=== PATIENT | male | born 1935 | race Caucasian/White ===

== ENCOUNTER → 2016-06-08 | Outpatient (CLI) | payer BC ==
[~2016-06-08] MED LIST: ALLERGY TAB PO; ALPR-411 PO; ASPEC325 PO; BIMA0.038 OPB; CHOL2000 PO; CYAN10005 PO; EZET10TA44 PO; FIBER POWDER PO; MISCCAP80 PO; MULT-506 PO; OMEG10007 PO; PRLSR20 PO; TRIATAB3 PO; [UNRECOGNIZED DRUG - CODE] PO
[2016-06-08 12:46] LABS: BASO % 0.6 %; BASO ABS # 0.04 K/uL (0-0.2); COMPLETE YES; EOS % 3.7 %; HEMATOCRIT 46.2 % (42-52); IG% 0.2 %; LYMPH % 16.2 %; MEAN CELL VOLUME 87.8 fL (80-100); MEAN CORPUSCULAR HEMOGLOBIN 28.7 pg (25-34); MEAN CORPUSCULAR HGB CONC 32.7 g/dl (32-36); MEAN PLATELET VOLUME 11.4 fL (7.4-10.4); MONO % 7.3 %; PLATELET COUNT 152 K/uL (130-400); RED BLOOD COUNT 5.26 M/uL (4.7-6.1); WHITE BLOOD COUNT 6.19 K/uL (4.8-10.8)
[2016-06-08 13:03] LABS: ALT/SGPT 26 U/L (12-78); BLOOD UREA NITROGEN 17 mg/dl (7-18); BUN/CREATININE RATIO 15.7 (10-20); CARBON DIOXIDE 32 mmol/L (21-32); CHLORIDE 101 mmol/L (98-107); GLUCOSE 120 mg/dl (70-99); SODIUM 139 mmol/L (136-145)
[2016-06-08 13:06] LABS: ALB/GLOB RATIO 1.4 (0.9-2); ALKALINE PHOSPHATASE 71 U/L (45-117); AST/SGOT 18 U/L (15-37)
[2016-06-08 13:37] LABS: CALCIUM 9.8 mg/dl (8.5-10.1)
== END | disposition home or self-care (01) ==
LOC: C.LABPVFM 07:35
PROVIDERS: ATTEND Internal Medicine Hematology & Oncology
DX: C18.0 Malignant neoplasm of cecum (principal)

== ENCOUNTER → 2016-07-13 | Outpatient (CLI) | payer BC ==
[2016-07-13 13:04] LABS: CHOLESTEROL/HDL RATIO 2.3
== END | disposition home or self-care (01) ==
LOC: C.LABPVFM 07:20
PROVIDERS: ATTEND Family Medicine
DX: N40.1 Benign prostatic hyperplasia with lower urinary tract symptoms (principal); R33.9 Retention of urine, unspecified; E78.00 Pure hypercholesterolemia, unspecified

== ENCOUNTER → 2016-08-05 | Day surgery (SDC) | payer BC ==
[2016-07-27 08:05] VITALS: Ht 172.7 cm; Wt 75.0 kg
[~2016-08-05] VITALS: Ht 172.7 cm; Wt 75.0 kg
[~2016-08-05] MED LIST changes: +LIDOCAINE HCL 2% 2 ML VIAL (20MG/ML) ONE; +PROPOFOL IV EMULSION 10 MG/ML 20 ML VIAL IV ONE
--- NOTE | 2016-08-05 14:26 | Endo History and Physical ---
History & Physical Date of Service: Aug 05, 2016. Chief Complaint: h/o colon cancer Referring Physician: Dr. Puga History of Present Illness For colonoscopy Past Medical History Arthritis, Pacemaker, Asthma, Anxiety, Glaucoma, Reflux, Cancer, High Cholesterol, CABG, Syncopal Episodes, Hypertension Past Surgical History Hx Cardiac Surgery: Yes (CARDIAC CABG X2 VESSELS 1994 ([facility]) - PACEMAKER 2009) Hx Internal Defibrillator: No Hx Pacemaker: Yes Hx Abdominal Surgery: Yes (COLON RESECTION) Hx of Implantable Prosthesis: No Hx Post-Op Nausea and Vomiting: No Hx Cancer Surgery: No Hx Thoracic Surgery: No Hx Orthopedic: Yes (AMP 3 FINGERS R HAND, R RCR) Hx Urinary Tract Surgery: No Family History Esophogeal CA, IBD Social History Smoking Status: Former Smoker Hx Substance Use: No Hx Alcohol Use: Yes (1 BEER/DAY) Allergies Coded Allergies: Gluten (Verified Allergy, Unknown, Nausea, stomach pain, 07/27/16) NO KNOWN DRUG ALLERGIES (Unverified Allergy, Unknown, NONE, 07/27/16) Current Medications Reported Home Medications Medications Dose Route/Sig Max Daily Dose Days Date Category [Allergy Tab] 1 Tab PO PRN 07/27/16 Reported Vitamin D3 (Cholecalciferol) 2,000 Unit Cap 1 Cap PO QAM 90 07/27/16 Reported [place]-3 (Fish Oil) 1 Ea Cap 1 Cap PO QAM 07/27/16 Reported Triamterene/Hctz 37.5-25MG (Triamterene/HCTZ) 1 Tab Tab 1 Tab PO QAM 11/05/14 Reported Probiotic (Probiotic Product) 1 Cap Cap 1 Cap PO QAM 11/05/14 Reported Charcocaps (Charcoal Activated) 260 Mg Cap 1 Cap PO DIRECTED 07/11/14 Reported Vitamin B-12 (Cyanocobalamin) 1,000 Mcg Tab 2,500 Mcg PO HS 07/11/14 Reported [Fiber Powder] 1 Tsp PO QAM 06/21/10 Reported Multivitamin (Multivitamins) Tab 1 Tab PO QAM 06/21/10 Reported Ecotrin Or Generic * (Aspirin) 325 Mg Ectab 325 Mg PO QAM 06/21/10 Reported Lumigan 0.03% Oph (Bimatoprost) Soln 1 Drop OPB HS 06/21/10 Reported Xanax (Alprazolam) 0.5 Mg Tab 0.5 Mg PO HS 06/21/10 Reported Prilosec (Omeprazole) 20 Mg Capcr 20 Mg PO QAM 06/21/10 Reported Vytorin 10MG/80MG (Ezetimibe/Simvastatin) Tab 1 Tab PO QPM 06/21/10 Reported Vital Signs Weight (Kilograms): 75 Height (Feet): 5 Height (Inches): 8 Date Time Temp Pulse Resp B/P (MAP) Pulse Ox O2 Delivery O2 Flow Rate FiO2 08/05/16 14:02 36.7 73 20 174/73 (106) 98 Room Air Physical Exam General Appearance: WD/WN Respiratory/Chest: Respiratory effort: no dyspnea Cardiovascular: Heart Auscultation: RRR Abdomen: Bowel Sounds: pertinent finding (scar) Assessment and Plan Hx colon cancer for colonoscopy
--- NOTE | 2016-08-05 14:56 | Discharge Instructions ---
Endoscopy Patient Instructions Date / Procedure(s) Performed Aug 05, 2016. Colonoscopy Allergy Information Coded Allergies: Gluten (Verified Allergy, Unknown, Nausea, stomach pain, 07/27/16) NO KNOWN DRUG ALLERGIES (Unverified Allergy, Unknown, NONE, 07/27/16) Discharge Date / Findings Aug 05, 2016. Diverticulosis Medication Instructions Stopped Medication(s): Aspirin stopped 08/04/16. Restart Stopped Medication(s): resume meds Reported Home Medications Medications Dose Route/Sig Max Daily Dose Days Date Category [Allergy Tab] 1 Tab PO PRN 07/27/16 Reported Vitamin D3 (Cholecalciferol) 2,000 Unit Cap 1 Cap PO QAM 90 07/27/16 Reported [place]-3 (Fish Oil) 1 Ea Cap 1 Cap PO QAM 07/27/16 Reported Triamterene/Hctz 37.5-25MG (Triamterene/HCTZ) 1 Tab Tab 1 Tab PO QAM 11/05/14 Reported Probiotic (Probiotic Product) 1 Cap Cap 1 Cap PO QAM 11/05/14 Reported Charcocaps (Charcoal Activated) 260 Mg Cap 1 Cap PO DIRECTED 07/11/14 Reported Vitamin B-12 (Cyanocobalamin) 1,000 Mcg Tab 2,500 Mcg PO HS 07/11/14 Reported [Fiber Powder] 1 Tsp PO QAM 06/21/10 Reported Multivitamin (Multivitamins) Tab 1 Tab PO QAM 06/21/10 Reported Ecotrin Or Generic * (Aspirin) 325 Mg Ectab 325 Mg PO QAM 06/21/10 Reported Lumigan 0.03% Oph (Bimatoprost) Soln 1 Drop OPB HS 06/21/10 Reported Xanax (Alprazolam) 0.5 Mg Tab 0.5 Mg PO HS 06/21/10 Reported Prilosec (Omeprazole) 20 Mg Capcr 20 Mg PO QAM 06/21/10 Reported Vytorin 10MG/80MG (Ezetimibe/Simvastatin) Tab 1 Tab PO QPM 06/21/10 Reported Provider Instructions Activity Restrictions - No exercising or heavy lifting for 24 hours. - Do not drink alcohol the day of the procedure. - Do not drive a car or operate machinery until the day after the procedure. - Do not make any important decisions or sign important papers in 24 hours after the procedure. Following Day: - Return to full activity which may include returning to work/school. Diet Start your diet with liquids and light foods (jello, soup, juice, toast). Then eat your usual diet if not nauseated. Treatment For Common After Affects For mild abdominal pain, bloating, or excessive gas: - Rest - Eat lightly - Lie on right side Follow-Up Information Follow-up with Dr. Puga as scheduled Anesthesia Information What You Should Know You have had a procedure that required some medicine to reduce anxiety and discomfort. This treatment is called moderate sedation. After receiving the treatment, you may be sleepy, but you will be able to breathe on your own. The effects of the treatment may last for several hours. Follow these instructions along with Activity/Diet recommendations noted above: * Do NOT do anything where dizziness or clumsiness would be dangerous. * Rest quietly at home today, then you can be up and about tomorrow. * Have a responsible person stay with you the rest of today. * You may have had an I.V. today. If so, you may take the dressing off later today. Recommendations Call your doctor if: * Trouble breathing * Continuous vomiting for more than 24 hours * Temperature above 101 degrees * Severe abdominal pain or bloating * Pain not relieved by pain medicine ordered * There is increased drainage or redness from any incision * A large amount of rectal bleeding greater than 2-3 tablespoons. (If you had a polyp/s removed or have hemorrhoids, a small amount of blood - from the rectum is to be expected.) * You have any unanswered questions or concerns. IN THE EVENT OF A SERIOUS EMERGENCY, GO TO THE NEAREST EMERGENCY ROOM Your discharge instructions were prepared by provider Genaro Ortez. Patient Instructions Signature Page Troy Butt Patient (or Guardian) Signature/Date: I have read and understand the instructions given to me by my caregivers. Caregiver/RN/Doctor Signature/Date: The above-named patient and/or guardian has received patient instructions on this date. + Original Patient Signature Page (only) stays with chart. Please make copy for patient.
--- NOTE | 2016-08-05 15:00 | GI REPORT ---
Procedure Date: 08/05/2016 2:40 PM Procedure: Colonoscopy Indications: Personal history of malignant neoplasm of the colon Medicines: Propofol total dose 260 mg IV, Lidocaine 40 mg IV Complications: No immediate complications. Estimated Blood Loss: Estimated blood loss: none. Procedure: Pre-Anesthesia Assessment: - Prior to the procedure, a History and Physical was performed, and patient medications, allergies and sensitivities were reviewed. The patient's tolerance of previous anesthesia was reviewed. - The risks and benefits of the procedure and the sedation options and risks were discussed with the patient. All questions were answered and informed consent was obtained. After I obtained informed consent, the scope was passed under direct vision. Throughout the procedure, the patient's blood pressure, pulse, and oxygen saturations were monitored continuously. The scope was introduced through the anus and advanced to the ileocolonic anastomosis. The colonoscopy was performed without difficulty. The patient tolerated the procedure well. The quality of the bowel preparation was good. Findings: There was evidence of a prior end-to-side ileo-colonic anastomosis in the mid ascending colon. This was patent and was characterized by healthy appearing mucosa. The anastomosis was traversed. Multiple diverticula were found in the sigmoid colon. The terminal ileum appeared normal. Impression: - Patent end-to-side ileo-colonic anastomosis, characterized by healthy appearing mucosa. - Diverticulosis in the sigmoid colon. - The examined portion of the ileum was normal. - No specimens collected. Recommendation: - Discharge patient to home (ambulatory). - Continue present medications. - Repeat colonoscopy in 5 years for surveillance. - Return to primary care physician PRN. Genaro Ortez M.D. Genaro Ortez MD 08/05/2016 2:59:29 PM This report has been signed electronically. Note Initiated On: 08/05/2016 2:40 PM I attest to the content of the Intraoperative Record and orders documented therein, exceptions below
--- NOTE | 2016-08-05 15:10 | Anesthesiology Progress Note ---
Anesthesia Post Op Note Date & Time Aug 05, 2016 at 15:10 Vital Signs Pain Intensity: 0 Vital Signs Past 12 Hours Date Time Temp Pulse Resp B/P (MAP) Pulse Ox O2 Delivery O2 Flow Rate FiO2 08/05/16 14:02 36.7 73 20 174/73 (106) 98 Room Air Notes Mental Status: alert / awake / arousable, participated in evaluation Pt Amnestic to Procedure: Yes Nausea / Vomiting: adequately controlled Pain: adequately controlled Airway Patency, RR, SpO2: stable & adequate BP & HR: stable & adequate Hydration State: stable & adequate Anesthetic Complications: no major complications apparent
[2016-08-05 15:31] VITALS: BP 147/71; PULSE 63; O2SAT 99
== END | disposition home or self-care (01) ==
LOC: C.ACU 13:07
PROVIDERS: ATTEND Internal Medicine Gastroenterology
DX: Z12.11 Encounter for screening for malignant neoplasm of colon (principal); Z85.038 Personal history of other malignant neoplasm of large intestine; Z98.0 Intestinal bypass and anastomosis status; K57.30 Diverticulosis of large intestine without perforation or abscess without bleeding; I10 Essential (primary) hypertension; E78.00 Pure hypercholesterolemia, unspecified; K21.9 Gastro-esophageal reflux disease without esophagitis; J45.909 Unspecified asthma, uncomplicated; F41.9 Anxiety disorder, unspecified; H40.9 Unspecified glaucoma; Z87.891 Personal history of nicotine dependence; Z95.0 Presence of cardiac pacemaker; Z95.1 Presence of aortocoronary bypass graft; Z79.899 Other long term (current) drug therapy; Z80.0 Family history of malignant neoplasm of digestive organs; Z83.79 Family history of other diseases of the digestive system

== ENCOUNTER → 2016-12-05 | Outpatient (CLI) | payer BC ==
[~2016-12-05] MED LIST changes: -LIDOCAINE HCL 2% 2 ML VIAL (20MG/ML) ONE; -PROPOFOL IV EMULSION 10 MG/ML 20 ML VIAL IV ONE
[2016-12-05 12:59] LABS: ALT/SGPT 23 U/L (12-78); BLOOD UREA NITROGEN 16 mg/dl (7-18); BUN/CREATININE RATIO 16.1 (10-20); CALCIUM 8.9 mg/dl (8.5-10.1); CARBON DIOXIDE 31 mmol/L (21-32); CHLORIDE 102 mmol/L (98-107); CHOLESTEROL 138 mg/dl (0-200); CREATININE 1.01 mg/dl (0.60-1.40); GLUCOSE 94 mg/dl (70-99); POTASSIUM 4.2 mmol/L (3.5-5.1); SODIUM 139 mmol/L (136-145); TRIGLYCERIDES 121 mg/dl (0-150); VERY LOW DENSITY LIPOPROT CALC 24 mg/dl
[2016-12-05 13:02] LABS: ALB/GLOB RATIO 1.3 (0.9-2); ALKALINE PHOSPHATASE 76 U/L (45-117); AST/SGOT 18 U/L (15-37); CHOLESTEROL/HDL RATIO 2.1; HDL CHOLESTEROL 66 mg/dl; LDL CHOLESTEROL CALCULATED 48 mg/dl
== END | disposition home or self-care (01) ==
LOC: C.LABPVFM 07:54
PROVIDERS: ATTEND Family Medicine
DX: I10 Essential (primary) hypertension (principal); E78.00 Pure hypercholesterolemia, unspecified

== ENCOUNTER → 2017-06-12 | Outpatient (CLI) | payer BC ==
[2017-06-12 13:00] LABS: BASO % 0.6 %; BASO ABS # 0.04 K/uL (0-0.2); EOS % 4.4 %; EOS ABS # 0.29 K/uL (0-0.5); HEMOGLOBIN 15.6 g/dL (14.0-18.0); IG# 0.02 K/uL (0.00-0.02); LYMPH % 17.1 %; LYMPH ABS # 1.13 K/uL (1.2-3.4); MEAN CELL VOLUME 87.5 fL (80-100); MEAN CORPUSCULAR HEMOGLOBIN 29.7 pg (25-34); MEAN CORPUSCULAR HGB CONC 33.9 g/dl (32-36); MEAN PLATELET VOLUME 10.5 fL (7.4-10.4); MONO % 7.4 %; MONO ABS # 0.49 K/uL (0.11-0.59); NEUT % 70.2 %; NEUT ABS # 4.62 K/uL (1.4-6.5); PLATELET COUNT 155 K/uL (130-400); RED CELL DISTRIBUTION WIDTH CV 14.3 % (11.5-14.5); RED CELL DISTRIBUTION WIDTH SD 46.2 fL (36.4-46.3); WHITE BLOOD COUNT 6.59 K/uL (4.8-10.8)
[2017-06-12 13:13] LABS: ALBUMIN 4.2 gm/dl (3.4-5.0); ALT/SGPT 30 U/L (12-78); AST/SGOT 19 U/L (15-37); BLOOD UREA NITROGEN 21 mg/dl (7-18); CALCIUM 8.9 mg/dl (8.5-10.1); CARBON DIOXIDE 31 mmol/L (21-32); CREATININE 1.09 mg/dl (0.60-1.40); GLUCOSE 103 mg/dl (70-99); POTASSIUM 4.3 mmol/L (3.5-5.1); SODIUM 136 mmol/L (136-145)
[2017-06-12 13:15] LABS: ALKALINE PHOSPHATASE 81 U/L (45-117); TOTAL PROTEIN 7.8 gm/dl (6.4-8.2)
== END | disposition home or self-care (01) ==
LOC: C.LABPVFM 07:54
PROVIDERS: ATTEND Internal Medicine Cardiovascular Disease
DX: C18.0 Malignant neoplasm of cecum (principal); E78.00 Pure hypercholesterolemia, unspecified

== ENCOUNTER 2020-04-23 08:35 | Observation (INO) ==
[2020-04-23 09:13] LABS: Basophils # (auto) 0.03 K/uL (0-0.2); Basophils % (auto) 0.4 %; Eosinophils # (auto) 0.15 K/uL (0-0.5); Hematocrit (blood only) 41.4 % (42-52); Hemoglobin 14.4 g/dL (14.0-18.0); Immature Granulocytes # (auto) 0.02 K/uL (0.00-0.02); Immature Granulocytes % (auto) 0.3 %; Lymphocytes # (auto) 0.86 K/uL (1.2-3.4); Lymphocytes % (auto) 11.7 %; Mean Corpuscular Hemoglobin 28.3 pg (25-34); Mean Corpuscular Hgb Conc 34.8 g/dL (32-36); Mean Corpuscular Volume 81.5 fL (80-100); Mean Platelet Volume 9.9 fL (7.4-10.4); Monocytes # (auto) 0.73 K/uL (0.11-0.59); Neutrophils # (auto) 5.54 K/uL (1.4-6.5); Neutrophils % (auto) 75.6 %; Platelet Count 180 K/uL (130-400); RDW Coefficient of Variation 13.6 % (11.5-14.5); RDW Standard Deviation 40.8 fL (36.4-46.3); Red Blood Count 5.08 M/uL (4.7-6.1); White Blood Count 7.33 K/uL (4.8-10.8)
[2020-04-23] MEDS: SODIUM CHLORIDE 0.9% 1000ML 1,000 ML IV SCH ×3 (09:15→22:23)
[2020-04-23 09:28] LABS: INR 1.1 (0.9-1.1); Partial Thromboplastin Ratio 0.9; Partial Thromboplastin Time 23.9 Seconds (21.0-31.0); Prothrombin Time 10.7 Seconds (9.0-12.0)
[2020-04-23 09:29] LABS: D Dimer 3860 ug/L FEU (0-500)
[2020-04-23 09:34] LABS: iSTAT Creatinine 0.9 mg/dl (0.6-1.3); iSTAT Hemoglobin 13.3 g/dl (14.0-18.0); iSTAT Ionized Calcium 1.16 mmol/l (1.12-1.32)
[2020-04-23 09:40] LABS: Alanine Aminotransferase 29 U/L (12-78); Albumin Level 4.1 gm/dl (3.4-5.0); Aspartate Aminotransferase 24 U/L (15-37); BUN Creatinine Ratio 11.4 (10-20); Bilirubin Direct < 0.1 mg/dl (0-0.2); Blood Urea Nitrogen 12 mg/dl (7-18); Calcium 9.4 mg/dl (8.5-10.1); Carbon Dioxide 28 mmol/L (21-32); Chloride 93 mmol/L (98-107); Creatinine Clr Calc Pharmacy 54.7 ml/min; Est GFR (African American) 74.3; Est GFR (Non-African American) 64.1; Glucose 107 mg/dl (70-99); Lipase 233 U/L (73-393); Magnesium 2.4 mg/dl (1.8-2.4); Potassium 3.9 mmol/L (3.5-5.1); Sodium 127 mmol/L (136-145)
[2020-04-23] MEDS ORDERED: OPTIRAY 320 125ml IV ONE (09:44)
[2020-04-23 09:45] LABS: Alkaline Phosphatase 74 U/L (45-117); Bilirubin,Total 0.7 mg/dl (0.2-1); Total Protein 7.4 gm/dl (6.4-8.2); Troponin I < 0.015 ng/ml (0-0.045)
--- NOTE | 2020-04-23 10:06 | CT Scan Report ---
CT head/brain wo con CLINICAL HISTORY: Head trauma. Syncope. Laceration. COMPARISON STUDY: 12/29/2014 TECHNIQUE: Axial CT of the brain is performed from the vertex to the skull base. IV contrast was not administered for this examination. A dose lowering technique was utilized adhering to the principles of ALARA. CT DOSE: FINDINGS: No intra or extra-axial mass lesions are visualized. There is no CT evidence of acute cortical infarc tion. There is no evidence of midline shift. There is no acute hemorrhage. No calvarial fractures ar e visualized. There are patchy white matter hypodensities likely on a small vessel basis. There is a persistent 11 mm right subcortical frontal white matter hypodensity, likely representing an old ischemic insult. There is no evidence of pathologic ventricular dilatation. There is no evidence of acute sinusitis IMPRESSION: No acute intracranial findings ACT 112: Negative or not required by law. Electronically signed by: Keven Anderson M.D. 04/23/2020 10:04 AM
--- NOTE | 2020-04-23 10:09 | CT Scan Report ---
CT OF THE CERVICAL SPINE CLINICAL HISTORY: Neck pain status post trauma COMPARISON STUDY: 12/29/2014 CT DOSE: TECHNIQUE: CT scan of the cervical spine was performed from the skull base to the thoracic inlet. Juanis ges are reviewed in the axial, sagittal, and coronal planes. IV contrast was not administered for thi s examination. A dose lowering technique was utilized adhering to the principles of ALARA. FINDINGS: There is no apical pneumothorax. There is pulmonary emphysema. There is a partially calcified right a pical granuloma. The prevertebral soft tissues are normal. No fractures or subluxations are visualized. There are multilevel degenerative changes IMPRESSION: No evidence of acute fracture or traumatic subluxation. ACT 112: Negative or not required by law. Electronically signed by: Keven Anderson M.D. 04/23/2020 10:07 AM
--- NOTE | 2020-04-23 10:22 | CT Scan Report ---
CT ANGIOGRAPHY OF THE CHEST, PULMONARY EMBOLUS PROTOCOL CLINICAL HISTORY: Syncope. Elevated d-dimer. Evaluate for pulmonary embolus. COMPARISON STUDY: Chest CT August 20, 2013. TECHNIQUE: Following IV administration of 120 mL of Optiray-320, helical axial images of the chest we re obtained utilizing the pulmonary embolus protocol. Maximal intensity projections and sagittal and coronal reformats were viewed on an independent 3D workstation. IV contrast was administered withou t complication. Automated exposure control was utilized for the study. A dose lowering technique wa s utilized adhering to the principles of ALARA. CT DOSE: 2092.04 mGy.cm FINDINGS: No pulmonary emboli are identified. There is no thoracic aortic dissection. Note is made o f moderate cardiomegaly. There are postoperative findings from bypass grafting. There is extensive co ronary artery calcification. A small hiatal hernia is noted. A low-attenuation 1.4 cm anterior medias tinal density on axial image 200 of 278 is probably benign. Central airways are patent. There is no p neumothorax or pleural effusion. Old bilateral rib fractures are present. There is no acute rib or th oracic spine fracture. Old mild lower thoracic spine compression of bodies are present. There is mode rate emphysema. A 1.3 cm groundglass opacity within left lower lobe on image 110 of 278 is noted. A f ew subpleural nodular opacities within the right lower lobe measure up to 6 mm. There is also a 5 mm subpleural right lower lobe nodule on image 155. Adjacent smaller nodules are present. A right adrena l nodule is unchanged from earlier chest CT of August 20, 2013. This is benign. IMPRESSION: 1. No pulmonary emboli identified. 2. No acute process within the chest. 3. Moderate cardiomegaly and extensive coronary calcification. 4. 1.3 cm groundglass opacity within the left lower lobe. In addition, several subpleural right lower lobe nodules. The findings are indeterminate and may be infectious or inflammatory. However, a follo w-up chest CT in 6 months to ensure resolution is recommended. 5. Moderate emphysema. ACT 112: Negative or not required by law. Electronically signed by: Serafin Ortiz M.D. 04/23/2020 10:20 AM
--- NOTE | 2020-04-23 10:25 | CT Scan Report ---
CT SCAN OF THE ABDOMEN AND PELVIS WITH IV CONTRAST CLINICAL HISTORY: Syncope. Generalized abdominal pain. COMPARISON STUDY: Abdominal CT dated 01/08/2020. TECHNIQUE: Following the IV administration of 120 cc of Optiray 320, CT scan of the abdomen and pelv is is performed from the lung bases to the proximal femora. Images are reviewed in the axial, sagitta l, and coronal planes. IV contrast was administered without complication. A dose lowering technique w as utilized adhering to the principles of ALARA. FINDINGS: Lung bases: The patient is status post midline sternotomy. The heart is enlarged and without pericard ial effusion. Pacemaker leads are noted. The coronary arteries, mitral annulus, and aortic valve leaf lets are densely calcified. Emphysematous change is noted. Scarring/atelectasis is seen at the lung b ases. No airspace consolidation, pleural effusion, or basilar pneumothorax is identified. There is a small hiatal hernia. Liver: The contrast-enhanced liver is normal in size, contour, and attenuation. There is no intrahepa tic biliary ductal dilatation. The hepatic veins and portal veins are patent. Gallbladder: Unremarkable. Spleen: Normal in size and attenuation. Pancreas: Unremarkable. Adrenal glands: A 1.7 cm right adrenal nodule is unchanged. The left adrenal gland is normal in appea ana. Kidneys: The contrast enhanced kidneys demonstrate mild cortical atrophy and are without hydronephros is. The kidneys enhance symmetrically. There are least 2 nonobstructing right renal calculi which max sure up to 11 mm. Abdominal vasculature: There is advanced atherosclerotic calcification of the abdominal aorta. 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 There is mild aneury smal dilatation of the abdominal aorta which measures up to 3.5 cm. 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 Bowel: There is moderate colonic diverticulosis without CT evidence of acute diverticulitis. There is postoperative change from right hemicolectomy with ileocolic anastomosis. No bowel obstruction is se en. Mild/moderate fecal retention is seen throughout the colon. Peritoneum: There is no intraperitoneal free air or abdominal ascites. Lymphadenopathy: None. Pelvic viscera: The prostate gland is enlarged and heterogeneous noting median lobe hypertrophy. The bladder wall is thickened and trabeculated indicating chronic outlet obstruction. There is a small fa t-containing right inguinal hernia, as well as evidence of previous left inguinal herniorrhaphy. Skeletal structures: The skeletal structures are osteopenic. The lumbosacral spine, bony pelvis, and proximal femora appear intact. There are mild chronic superior endplate compression deformities of T1 1 and T12. Mild to moderate lumbosacral spondylosis is observed. No lytic or blastic lesions are seen . IMPRESSION: 1. There is no evidence of solid organ injury in the abdomen or pelvis. 2. There is mild aneurysmal dilatation and postoperative change of the abdominal aorta which measures up to 3.5 cm in diameter. 3. Cardiomegaly, cardiac pacemaker, and emphysema. 4. There is postoperative change from right hemicolectomy with ileocolic anastomosis. No bowel obstru ction is seen. 5. Prostatomegaly with evidence of chronic bladder outlet obstruction. 6. Moderate colonic diverticulosis without CT evidence of acute diverticulitis. 7. 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 8. Additional findings as above. ACT 112: Negative or not required by law. Electronically signed by: Mohinder Perez M.D. 04/23/2020 10:24 AM
[2020-04-23 10:28] LABS: Appearance Urine Clear (Clear); Bilirubin Urine Negative (Negative); Blood Urine Negative (Negative); Color Urine Yellow; Glucose Urine UA Negative (Negative); Ketones Urine Negative (Negative); Leukocyte Esterase Urine Negative (Negative); Nitrite Urine Negative (Negative); Protein Urine Negative (Negative); Specific Gravity Urine 1.037 (1.000-1.030); Urobilinogen Urine Negative (Negative); pH Urine 8.5 (4.5-7.5)
[2020-04-23] MEDS ORDERED: LIDOCAINE/EPINEPHRINE 1% 20 ML VIAL INFIL ONE (11:11)
--- NOTE | 2020-04-23 11:13 | History & Physical Report ---
Date of Service April 23, 2020 Assessment & Plan (1) Syncope and collapse: TTE and pacemaker interrogation to check no arrhythmias at the time of him having the syncopal episode. Monitor on telemetry for recurrence Orthostatics q shift (2) Acute hyponatremia: Suspect secondary to HCTZ use. Rehydrate with NSS IV @ 125 ml/hr Repeat BMP in AM (3) GERD (gastroesophageal reflux disease): Switch omeprazole to pantoprazole per hospital formulary Consult his antenna rigger for further advice regarding this as possible contributing factors and do not wish to prescript Carafate if any chance he would need EGD. EGD relatively unremarkable in 01/2020 (4) HTN (hypertension), benign: Continue valsartan and triamterene. 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 He does note his PCP switched his lisinopril to valsartan due to cough as side effect and he took the first dose of this yesterday morning. He reports possible complete loss of consciousness (approx 1 second) with a feeling of dizziness/lightheadedness/diaphoresis prior to falling. He does remember falling. No chest pain or shortness of breath. On the last occasion he hit his head causing some bleeding. He has been walking around since the fall with no hip/groin pain. He notes similar occurrence prior to him needing his current pacemaker. He is concerned about progressively worsening abdominal pain that it may be related to his syncope. Associated acid taste in the back of his mouth. He has known GERD but reports it has not been under control for the last 2 weeks. He does note eating spicy tacos approximately 1 week ago but symptoms were already getting worse prior to then. He has increased his omeprazole to BID for the last 3 days with no improvement. Allergies Allergy/AdvReac Type Severity Reaction Status Date / Time gluten Allergy Unknown Nausea, Verified 04/23/20 09:36 stomach pain No Known Drug Allergies Allergy Unknown NONE Unverified 04/23/20 09:36 Home Medications Medication Instructions Recorded Confirmed Type bimatoprost 0.01 % eye drops 1 drp OPB HS ml 11/08/18 04/23/20 History dorzolamide 22.3 mg-timolol 6.8 1 drp OPL BID ml 11/08/18 04/23/20 History mg/mL eye drops cholecalciferol (vitamin D3) 50 2,000 units PO QAM 11/09/18 04/23/20 History mcg (2,000 unit) capsule mecobalamin (vitamin B12) 1,000 2,500 mcg SL PM tab 11/09/18 04/23/20 History mcg disintegrating tablet,sublingual omega-3 fatty acids 1,000 mg 1,000 mg PO QAM 11/09/18 04/23/20 History capsule psyllium seed (aspartame) oral 1.65 gm PO QAM gm 11/09/18 04/23/20 History powder ezetimibe 10 mg-simvastatin 80 mg 1 tab PO QPM #90 tab 07/04/19 04/23/20 Rx tablet activated charcoal 200 mg capsule 400 mg PO DAILY PRN cap 08/09/19 04/23/20 History aspirin 325 mg tablet,delayed 325 mg PO QAM 08/09/19 04/23/20 History release melatonin 1 ea PO HS 08/09/19 04/23/20 History triamterene-hydrochlorothiazid 1 cap PO QAM 01/15/20 04/23/20 History multivitamin with iron 1 tab PO QAM 04/23/20 04/23/20 History omeprazole 20 mg capsule,delayed 20 mg PO BID #180 cap 04/23/20 04/23/20 Rx release valsartan 80 mg PO QAM 04/23/20 04/23/20 History Past Med/Surg History Medical History History of colon cancer 2014 surgical intervention only for colon cancer Hx of cardiac pacemaker [facility] - 2010 -syncope-bradycardia last check 07/[address] Hartman Surgical History History of abdominal aortic aneurysm repair x3 History of colon surgery 2014 surgical intervention only for colon cancer History of colonoscopy fiberoptic History of foot surgery History of hand surgery 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 failed stress test Hx of hernia repair double hernia repair Hx of shoulder surgery Arthroscopy with Rotator cuff repair Status post carotid surgery Thromboendarterectomy Family History Father Prostate cancer Myocardial infarction Heart disease Hypertension Mother Arthritis Cerebral artery occlusion Heart disease Hypertension Daughter Asthma Cancer of brain Breast cancer Brother Myocardial infarction Heart disease Hypertension Denies family history of Ovarian cancer Social History Smoking Status: Never smoker Second Hand Exposure: No; Hx Alcohol Use: Yes Alcohol type: beer Hx Substance Use: No Preferred Language: Mongolian Communication Ability: Effective Staff Readiness Officer 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 Beliefs That Will Affect Care: None marital status: Current Living Situation: Spouse current occupational status: retired Feels Safe at Home: Yes caffeine: Yes (coffee) Dental Care, Regularly: Yes Physical Activity Frequency: Daily Seatbelt Use: sometimes Sunscreen Use: Yes Assistive Devices: Denture - Upper, Denture - Lower, Glasses and Hearing Aid - Bilateral Review of Systems Review of Systems: All systems reviewed & are unremarkable except as noted in HPI & below Physical Exam Constitutional: well developed and well nourished; no acute distress Respiratory: normal respiratory effort, lungs clear to auscultation Cardiovascular: RRR, no murmur, no edema Gastrointestinal (Abdomen): Inspection/Auscultation: abdomen normal to inspection and normal bowel sounds Percussion/Palpation: + abdomen tender (epigastric) and abdomen soft; no guarding and abdomen not rigid Musculoskeletal: no cyanosis or clubbing, extremities motor strength 5/5 Skin: no rashes, warm and dry Neurologic: CN's II-XI intact bilaterally, moves all extremities and awake; no focal motor deficits and not confused Speech / Cognition: normal speech Motor/Sensory: no tremor and no pronator drift Psychiatric: Orientation: alert and oriented x 3 Genitourinary: no CVA tenderness Results & Data Results & Data ([facility]) Vital Signs (Past 12 Hours) Vital Signs Temp Pulse Resp BP Pulse Ox 04/23/20 09:30 95 H 15 169/76 H 98 04/23/20 09:10 78 16 96 04/23/20 09:07 85 14 98 04/23/20 09:02 95 H 15 174/77 H 99 04/23/20 08:40 36.7 C 66 16 206/[address] head/brain wo con IMPRESSION: No acute intracranial findings CT OF THE CERVICAL SPINE IMPRESSION: No evidence of acute fracture or traumatic subluxation. CT ANGIOGRAPHY OF THE CHEST, PULMONARY EMBOLUS PROTOCOL IMPRESSION: 1. No pulmonary emboli identified. 2. No acute process within the chest. 3. Moderate cardiomegaly and extensive coronary calcification. 4. 1.3 cm groundglass opacity within the left lower lobe. In addition, several subpleural right lower lobe nodules. The findings are indeterminate and may be infectious or inflammatory. However, a follow-up chest CT in 6 months to ensure resolution is recommended. 5. Moderate emphysema. CT SCAN OF THE ABDOMEN AND PELVIS WITH IV CONTRAST IMPRESSION: 1. There is no evidence of solid organ injury in the abdomen or pelvis. 2. There is mild aneurysmal dilatation and postoperative change of the abdominal aorta which measures up to 3.5 cm in diameter. 3. Cardiomegaly, cardiac pacemaker, and emphysema. 4. There is postoperative change from right hemicolectomy with ileocolic anastomosis. No bowel obstruction is seen. 5. Prostatomegaly with evidence of chronic bladder outlet obstruction. 6. Moderate colonic diverticulosis without CT evidence of acute diverticulitis. 7. 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 8. Additional findings as above. Medications Administered ER medications given: NSS IV started @ 125 mL/hr ECG Indication: syncope Rate (beats per minute): 74 Rhythm: sinus with SA Findings: + PVC Comparison ECG Date: from (January 28, 2013) Change: the following changes noted (PVCs now present) Code Status & VTE Plan Code Status Full VTE Prophylaxis Plan VTE Prophylaxis will be ordered: Yes PG Care Time/CCT Total # of Minutes Spent Total Time Spent with Patient: Total time spent is greater than 50% in coordination of care (as documented) at patient's floor/unit and/or counseling patient: Coding Level of Care Code 35097 Initial Inpt Care Lvl 2 Diagnoses Syncope and collapse R55 Acute hyponatremia E87.1 GERD (gastroesophageal reflux disease) K21.9 HTN (hypertension), benign I10 Hyperlipidemia E78.5 Hx of cardiac pacemaker Z95.0 Laceration of head S01.91XA
--- NOTE | 2020-04-23 11:28 | Emergency Department Note ---
History of Present Illness General Chief complaint: Fall Stated complaint: S/P FALL,HEAD LACERATION Time Seen by Provider: 04/23/20 08:44 History of Present Illness Provider complaint: Syncope Onset (ago): day(s) 1 Location: head and abdomen Radiation: non-radiation Severity: moderate Maximum Pain Intensity: 0 Relieved By: + none Exacerbated By: + none Associated symptoms: + headaches; no chest pain, no cough, no fever/chills, no nausea/vomiting and no shortness of breath 85-year-old male presents emergency department for syncope. Patient reports he had 3 syncopal episodes today. Patient also reports he had been having increasing abdominal pain. He denies any nausea or vomiting. Patient is not on any blood thinners. No chest pain or difficulty breathing. Home Medications Medication Instructions Recorded Confirmed Type bimatoprost 0.01 % eye drops 1 drp OPB HS ml 11/08/18 04/23/20 History dorzolamide 22.3 mg-timolol 6.8 1 drp OPL BID ml 11/08/18 04/23/20 History mg/mL eye drops cholecalciferol (vitamin D3) 50 2,000 units PO QAM 11/09/18 04/23/20 History mcg (2,000 unit) capsule mecobalamin (vitamin B12) 1,000 2,500 mcg SL PM tab 11/09/18 04/23/20 History mcg disintegrating tablet,sublingual omega-3 fatty acids 1,000 mg 1,000 mg PO QAM 11/09/18 04/23/20 History capsule psyllium seed (aspartame) oral 1.65 gm PO QAM gm 11/09/18 04/23/20 History powder ezetimibe 10 mg-simvastatin 80 mg 1 tab PO QPM #90 tab 07/04/19 04/23/20 Rx tablet activated charcoal 200 mg capsule 400 mg PO DAILY PRN cap 08/09/19 04/23/20 History aspirin 325 mg tablet,delayed 325 mg PO QAM 08/09/19 04/23/20 History release melatonin 1 ea PO HS 08/09/19 04/23/20 History triamterene-hydrochlorothiazid 1 cap PO QAM 01/15/20 04/23/20 History multivitamin with iron 1 tab PO QAM 04/23/20 04/23/20 History omeprazole 20 mg capsule,delayed 20 mg PO BID #180 cap 04/23/20 04/23/20 Rx release valsartan 80 mg PO QAM 04/23/20 04/23/20 History Allergies Allergy/AdvReac Type Severity Reaction Status Date / Time gluten Allergy Unknown Nausea, Verified 04/23/20 09:36 stomach pain No Known Drug Allergies Allergy Unknown NONE Unverified 04/23/20 09:36 Past Med/Surg History Medical History History of colon cancer 2014 surgical intervention only for colon cancer Hx of cardiac pacemaker [facility] - 2010 -syncope-bradycardia last check 07/[address] Hartman Surgical History History of abdominal aortic aneurysm repair x3 History of colon surgery 2014 surgical intervention only for colon cancer History of colonoscopy fiberoptic History of foot surgery History of hand surgery 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 Hx of heart bypass surgery x 2 vessel in 1994 failed stress test Hx of hernia repair double hernia repair Hx of shoulder surgery Arthroscopy with Rotator cuff repair Status post carotid surgery Thromboendarterectomy Family History Father Prostate cancer Myocardial infarction Heart disease Hypertension Mother Arthritis Cerebral artery occlusion Heart disease Hypertension Daughter Asthma Cancer of brain Breast cancer Brother Myocardial infarction Heart disease Hypertension Denies family history of Ovarian cancer Social History Smoking Status: Never smoker Second Hand Exposure: No; Hx Alcohol Use: Yes Alcohol type: beer Hx Substance Use: No Preferred Language: Mexican Communication Ability: Effective 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 Beliefs That Will Affect Care: None marital status: Current Living Situation: Spouse current occupational status: retired Feels Safe at Home: Yes caffeine: Yes (coffee) Dental Care, Regularly: Yes Physical Activity Frequency: Daily Seatbelt Use: sometimes Sunscreen Use: Yes Assistive Devices: Denture - Upper, Denture - Lower, Glasses and Hearing Aid - Bilateral Review of Systems A total of 10 systems reviewed and were otherwise negative Physical Exam Vital Signs Vital Signs - 24 hr 04/23/20 08:40 04/23/20 09:02 04/23/20 09:07 Temperature 36.7 C Temperature Source Temporal Artery Scan Pulse Rate 66 95 H 85 Pulse Rate from SpO2 Sensor Pulse Rhythm Respiratory Rate 16 15 14 Respiratory Effort / Characteristics Non-Labored Respiratory Depth Normal Blood Pressure 206/75 H 174/77 H Blood Pressure Mean 118 109 Pulse Oximetry 96 99 98 Oxygen Delivery Method Room Air Sepsis Recent Fever Within 48 Hours No Sepsis New/Unexplained Change in Mental Status No Sepsis Action Taken by Nursing No Action Required 04/23/20 09:10 04/23/20 09:30 04/23/20 10:00 Temperature Temperature Source Pulse Rate 78 95 H 72 Pulse Rate from SpO2 Sensor 78 Pulse Rhythm Regular Respiratory Rate 16 15 19 Respiratory Effort / Characteristics Respiratory Depth Blood Pressure 169/76 H Blood Pressure Mean 107 Pulse Oximetry 96 98 100 Oxygen Delivery Method Room Air Sepsis Recent Fever Within 48 Hours Sepsis New/Unexplained Change in Mental Status Sepsis Action Taken by Nursing 04/23/20 10:15 04/23/20 10:30 04/23/20 11:00 Temperature Temperature Source Pulse Rate 77 142 H 74 Pulse Rate from SpO2 Sensor 77 71 67 Pulse Rhythm Respiratory Rate 16 14 15 Respiratory Effort / Characteristics Respiratory Depth Blood Pressure 180/80 H 151/69 H 159/74 H Blood Pressure Mean 113 96 102 Pulse Oximetry 98 92 93 Oxygen Delivery Method Sepsis Recent Fever Within 48 Hours Sepsis New/Unexplained Change in Mental Status Sepsis Action Taken by Nursing Physical Exam GENERAL: He is oriented to person, place, and time. He appears well-developed and well-nourished. He does not appear distressed. HENT: Exam performed. - Head: 1 cm laceration to the occiput, bleeding controlled. - Right Ear: External ear normal. No mastoid tenderness. - Left Ear: External ear normal. No mastoid tenderness. - Mouth/Throat: The oropharynx is clear and moist. No trismus in the jaw. No dental abscesses or uvula swelling. No oropharyngeal exudate or tonsillar abscesses. EYES: Conjunctivae and EOM are normal. Pupils are equal, round, and reactive to light. Right eye exhibits no discharge. Left eye exhibits no discharge. No scle ral icterus. NECK: Normal range of motion. Neck supple. No JVD present. No spinous process tenderness present. No carotid bruit present. No rigidity. No tracheal deviation and normal range of motion present. No Brudzinski's sign and no Kernig's sign noted. CV: Normal rate, regular rhythm, normal heart sounds and intact distal pulses. There is no peripheral edema. Palpable radial pulses bue. PULM/CHEST: Effort normal and breath sounds normal. No respiratory distress. No stridor. He has no wheezes. He has no rales. - Chest Wall: He exhibits no tenderness. Multiple scars over his chest and anterior abdominal wall ABD: The abdomen is soft. Bowel sounds are normal. He has no distension. No mass is present. There is no tenderness. There is no rebound, no guarding, no Piedra's sign and no tenderness at McBurney's point. Rovsig negative. MUSC/SKEL: Normal range of motion. There is no peripheral edema, tenderness or deformity. LYMPH: No cervical adenopathy. NEURO: He is alert and oriented to person, place, and time. He has normal strength. No cranial nerve deficit or sensory deficit. Coordination and gait normal. GCS eye subscore is 4. GCS verbal subscore is 5. GCS motor subscore is 6. Cerebellar tests wnl. SKIN: Skin is warm and dry. He is not diaphoretic. PSYCH: He has a normal mood and affect. Behavior is normal. Judgment and thought content normal. Procedures Laceration Laceration 1: Site: scalp Size (cm): 1 Description: linear Depth: simple, single layer Skin layer closed with: other (1 staple) Course Course 0844: The patient was evaluated in room C11. A complete history and physical exam was performed Cardiac monitoring: An order was placed for continuous cardiac monitoring. The monitor shows a rate of 70 with sinus rhythm 1125: Vital signs stable. Laceration repair was done. See procedure note. Labs and imaging within normal limits with the exception of hyponatremia of 127. Patient is having no focal neurological deficits at this time. No seizure-like activity. Imaging shows no traumatic injuries. Given the patient's reported syncopal episodes occurring 3 times today the patient will be admitted to [facility] service. Dr. Fortune has been notified. Administered Medications Sodium Chloride (Nss 1000ml) 1,000 mls @ 125 mls/hr IV .Q8H SOFIYA Stop: 05/23/20 08:59 Last Admin: 04/23/20 13:51 Dose: 125 mls/hr Documented by: [id number] Infusion: 04/23/20 13:51 Dose: 125 mls/hr Documented by: [id number] Admin: 03/18/21 09:15 Dose: 125 mls/hr Documented by: [id number] Discontinued Medications Ioversol (Optiray 320 125ml) 120 ml IV ONCE ONE Stop: 04/23/20 09:45 Last Admin: 04/23/20 09:44 Dose: 120 ml Documented by: [id number] Lidocaine/Epinephrine (Lidocaine/Epinephrine 1% 20 Ml Vial) 20 ml INFIL NOW ONE Stop: 04/23/20 11:12 Last Admin: 04/23/20 11:15 Dose: 20 ml Documented by: [id number] Medical Decision Making Laboratory Data Result diagrams: 04/23/20 08:58 04/23/20 08:58 Lab Results 04/23/20 04/23/20 04/23/20 Range/Units 08:58 08:58 08:58 WBC 7.33 (4.8-10.8) K/uL RBC 5.08 (4.7-6.1) M/uL Hgb 14.4 (14.0-18.0) g/dL POC Hgb (14.0-18.0) g/dl Hct 41.4 L (42-52) % POC Hct (42-52) % MCV 81.5 (80-100) fL MCH 28.3 (25-34) pg MCHC 34.8 (32-36) g/dL RDW Std Deviation 40.8 (36.4-46.3) fL RDW Coeff of Citlaly 13.6 (11.5-14.5) % Plt Count 180 (130-400) K/uL MPV 9.9 (7.4-10.4) fL Immature Gran % (Auto) 0.3 % Neut % (Auto) 75.6 % Lymph % (Auto) 11.7 % [place] % (Auto) 10.0 % Eos % (Auto) 2.0 % Baso % (Auto) 0.4 % Neut # (Auto) 5.54 (1.4-6.5) K/uL Lymph # (Auto) 0.86 L (1.2-3.4) K/uL [place] # (Auto) 0.73 H (0.11-0.59) K/uL Eos # (Auto) 0.15 (0-0.5) K/uL Baso # (Auto) 0.03 (0-0.2) K/uL Immature Gran # (Auto) 0.02 (0.00-0.02) K/uL PT 10.7 (9.0-12.0) Seconds INR 1.1 (0.9-1.1) APTT 23.9 (21.0-31.0) Seconds PTT Ratio 0.9 D-Dimer 3860 H* (0-500) ug/L FEU POC Sodium (135-144) mmol/L Sodium 127 L (136-145) mmol/L POC Potassium (3.3-5.0) mmol/L Potassium 3.9 (3.5-5.1) mmol/L POC Chloride (101-112) mmol/L Chloride 93 L (98-107) mmol/L Carbon Dioxide 28 (21-32) mmol/L POC Total CO2 (24-31) mmol/L Anion Gap 6.0 (3-11) POC Anion Gap (16-25) mmol/L POC BUN (7-18) mg/dl BUN 12 (7-18) mg/dl Creatinine 1.06 (0.6-1.4) mg/dl POC Creatinine (0.6-1.3) mg/dl Est Cr Clr Drug Dosing 54.7 ml/min Est GFR ( Amer) 74.3 Est GFR (Non-Af Amer) 64.1 BUN/Creatinine Ratio 11.4 (10-20) Glucose 107 H (70-99) mg/dl POC Glucose (other) (70-99) mg/dl Calcium 9.4 (8.5-10.1) mg/dl POC Ioniz Calcium Rosa (1.12-1.32) mmol/l Magnesium 2.4 (1.8-2.4) mg/dl Total Bilirubin 0.7 (0.2-1) mg/dl Direct Bilirubin < 0.1 (0-0.2) mg/dl AST 24 (15-37) U/L ALT 29 (12-78) U/L Alkaline Phosphatase 74 (45-117) U/L Troponin I < 0.015 (0-0.045) ng/ml Total Protein 7.4 (6.4-8.2) gm/dl Albumin 4.1 (3.4-5.0) gm/dl Lipase 233 (73-393) U/L Urine Color Urine Appearance (Clear) Urine pH (4.5-7.5) Ur Specific [place] (1.000-1.030) Urine Protein (Negative) Urine Glucose (UA) (Negative) Urine Ketones (Negative) Urine Blood (Negative) Urine Nitrite (Negative) Urine Bilirubin (Negative) Urine Urobilinogen (Negative) Ur Leukocyte Esterase (Negative) COVID-19 Eval Order SARS-CoV-2, RNA, NAAT (NEGATIVE) 04/23/20 04/23/20 04/23/20 Range/Units 09:22 10:16 11:10 WBC (4.8-10.8) K/uL RBC (4.7-6.1) M/uL Hgb (14.0-18.0) g/dL POC Hgb 13.3 L (14.0-18.0) g/dl Hct (42-52) % POC Hct 39 L (42-52) % MCV (80-100) fL MCH (25-34) pg MCHC (32-36) g/dL RDW Std Deviation (36.4-46.3) fL RDW Coeff of Citlaly (11.5-14.5) % Plt Count (130-400) K/uL MPV (7.4-10.4) fL Immature Gran % (Auto) % Neut % (Auto) % Lymph % (Auto) % [place] % (Auto) % Eos % (Auto) % Baso % (Auto) % Neut # (Auto) (1.4-6.5) K/uL Lymph # (Auto) (1.2-3.4) K/uL [place] # (Auto) (0.11-0.59) K/uL Eos # (Auto) (0-0.5) K/uL Baso # (Auto) (0-0.2) K/uL Immature Gran # (Auto) (0.00-0.02) K/uL PT (9.0-12.0) Seconds INR (0.9-1.1) APTT (21.0-31.0) Seconds PTT Ratio D-Dimer (0-500) ug/L FEU POC Sodium 128 L (135-144) mmol/L Sodium (136-145) mmol/L POC Potassium 4.0 (3.3-5.0) mmol/L Potassium (3.5-5.1) mmol/L POC Chloride 89 L (101-112) mmol/L Chloride (98-107) mmol/L Carbon Dioxide (21-32) mmol/L POC Total CO2 28 (24-31) mmol/L Anion Gap (3-11) POC Anion Gap 15.0 L (16-25) mmol/L POC BUN 12 (7-18) mg/dl BUN (7-18) mg/dl Creatinine (0.6-1.4) mg/dl POC Creatinine 0.9 (0.6-1.3) mg/dl Est Cr Clr Drug Dosing ml/min Est GFR ( Amer) Est GFR (Non-Af Amer) BUN/Creatinine Ratio (10-20) Glucose (70-99) mg/dl POC Glucose (other) 111 H (70-99) mg/dl Calcium (8.5-10.1) mg/dl POC Ioniz Calcium Rosa 1.16 (1.12-1.32) mmol/l Magnesium (1.8-2.4) mg/dl Total Bilirubin (0.2-1) mg/dl Direct Bilirubin (0-0.2) mg/dl AST (15-37) U/L ALT (12-78) U/L Alkaline Phosphatase (45-117) U/L Troponin I (0-0.045) ng/ml Total Protein (6.4-8.2) gm/dl Albumin (3.4-5.0) gm/dl Lipase (73-393) U/L Urine Color Yellow Urine Appearance Clear (Clear) Urine pH 8.5 H (4.5-7.5) Ur Specific [place] 1.037 H (1.000-1.030) Urine Protein Negative (Negative) Urine Glucose (UA) Negative (Negative) Urine Ketones Negative (Negative) Urine Blood Negative (Negative) Urine Nitrite Negative (Negative) Urine Bilirubin Negative (Negative) Urine Urobilinogen Negative (Negative) Ur Leukocyte Esterase Negative (Negative) COVID-19 Eval [facility] SARS-CoV-2, RNA, NAAT (NEGATIVE) 04/23/20 Range/Units 11:10 WBC (4.8-10.8) K/uL RBC (4.7-6.1) M/uL Hgb (14.0-18.0) g/dL POC Hgb (14.0-18.0) g/dl Hct (42-52) % POC Hct (42-52) % MCV (80-100) fL MCH (25-34) pg MCHC (32-36) g/dL RDW Std Deviation (36.4-46.3) fL RDW Coeff of Citlaly (11.5-14.5) % Plt Count (130-400) K/uL MPV (7.4-10.4) fL Immature Gran % (Auto) % Neut % (Auto) % Lymph % (Auto) % [place] % (Auto) % Eos % (Auto) % Baso % (Auto) % Neut # (Auto) (1.4-6.5) K/uL Lymph # (Auto) (1.2-3.4) K/uL [place] # (Auto) (0.11-0.59) K/uL Eos # (Auto) (0-0.5) K/uL Baso # (Auto) (0-0.2) K/uL Immature Gran # (Auto) (0.00-0.02) K/uL PT (9.0-12.0) Seconds INR (0.9-1.1) APTT (21.0-31.0) Seconds PTT Ratio D-Dimer (0-500) ug/L FEU POC Sodium (135-144) mmol/L Sodium (136-145) mmol/L POC Potassium (3.3-5.0) mmol/L Potassium (3.5-5.1) mmol/L POC Chloride (101-112) mmol/L Chloride (98-107) mmol/L Carbon Dioxide (21-32) mmol/L POC Total CO2 (24-31) mmol/L Anion Gap (3-11) POC Anion Gap (16-25) mmol/L POC BUN (7-18) mg/dl BUN (7-18) mg/dl Creatinine (0.6-1.4) mg/dl POC Creatinine (0.6-1.3) mg/dl Est Cr Clr Drug Dosing ml/min Est GFR ( Amer) Est GFR (Non-Af Amer) BUN/Creatinine Ratio (10-20) Glucose (70-99) mg/dl POC Glucose (other) (70-99) mg/dl Calcium (8.5-10.1) mg/dl POC Ioniz Calcium Rosa (1.12-1.32) mmol/l Magnesium (1.8-2.4) mg/dl Total Bilirubin (0.2-1) mg/dl Direct Bilirubin (0-0.2) mg/dl AST (15-37) U/L ALT (12-78) U/L Alkaline Phosphatase (45-117) U/L Troponin I (0-0.045) ng/ml Total Protein (6.4-8.2) gm/dl Albumin (3.4-5.0) gm/dl Lipase (73-393) U/L Urine Color Urine Appearance (Clear) Urine pH (4.5-7.5) Ur Specific [place] (1.000-1.030) Urine Protein (Negative) Urine Glucose (UA) (Negative) Urine Ketones (Negative) Urine Blood (Negative) Urine Nitrite (Negative) Urine Bilirubin (Negative) Urine Urobilinogen (Negative) Ur Leukocyte Esterase (Negative) COVID-19 Eval Order SARS-CoV-2, RNA, NAAT NEGATIVE (NEGATIVE) Imaging Data Radiologist's Impression: CT ANGIOGRAPHY OF THE CHEST, PULMONARY EMBOLUS PROTOCOL CLINICAL HISTORY: Syncope. Elevated d-dimer. Evaluate for pulmonary embolus. COMPARISON STUDY: Chest CT August 20, 2013. TECHNIQUE: Following IV administration of 120 mL of Optiray-320, helical axial images of the chest were obtained utilizing the pulmonary embolus protocol. Maximal intensity projections and sagittal and coronal reformats were viewed on an independent 3D workstation. IV contrast was administered without complication. Automated exposure control was utilized for the study. A dose lowering technique was utilized adhering to the principles of ALARA. CT DOSE: 2092.04 mGy.cm FINDINGS: No pulmonary emboli are identified. There is no thoracic aortic dissection. Note is made of moderate cardiomegaly. There are postoperative findings from bypass grafting. There is extensive coronary artery calcification. A small hiatal hernia is noted. A low-attenuation 1.4 cm anterior mediastinal density on axial image 200 of 278 is probably benign. Central airways are patent. There is no pneumothorax or pleural effusion. Old bilateral rib fractures are present. There is no acute rib or thoracic spine fracture. Old mild lower thoracic spine compression of bodies are present. There is moderate emphysema. A 1.3 cm groundglass opacity within left lower lobe on image 110 of 278 is noted. A few subpleural nodular opacities within the right lower lobe measure up to 6 mm. There is also a 5 mm subpleural right lower lobe nodule on image 155. Adjacent smaller nodules are present. A right adrenal nodule is unchanged from earlier chest CT of August 20, 2013. This is benign. IMPRESSION: 1. No pulmonary emboli identified. 2. No acute process within the chest. 3. Moderate cardiomegaly and extensive coronary calcification. 4. 1.3 cm groundglass opacity within the left lower lobe. In addition, several subpleural right lower lobe nodules. The findings are indeterminate and may be infectious or inflammatory. However, a follow-up chest CT in 6 months to ensure resolution is recommended. 5. Moderate emphysema. ACT 112: Negative or not required by law. Electronically signed by: Serafin Ortiz M.D. 04/23/2020 10:20 AM Dictated: 04/23/20 1005Transcribed: 04/23/[address] head/brain wo con CLINICAL HISTORY: Head trauma. Syncope. Laceration. COMPARISON STUDY: 12/29/2014 TECHNIQUE: Axial CT of the brain is performed from the vertex to the skull base. IV contrast was not administered for this examination. A dose lowering technique was utilized adhering to the principles of ALARA. CT DOSE: FINDINGS: No intra or extra-axial mass lesions are visualized. There is no CT evidence of acute cortical infarction. There is no evidence of midline shift. There is no acute hemorrhage. No calvarial fractures are visualized. There are patchy white matter hypodensities likely on a small vessel basis. There is a persistent 11 mm right subcortical frontal white matter hypodensity, likely representing an old ischemic insult. There is no evidence of pathologic ventricular dilatation. There is no evidence of acute sinusitis IMPRESSION: No acute intracranial findings ACT 112: Negative or not required by law. Electronically signed by: Keven Anderson M.D. 04/23/2020 10:04 AM Dictated: 04/23/20 1002Transcribed: 04/23/[address] OF THE CERVICAL SPINE CLINICAL HISTORY: Neck pain status post trauma COMPARISON STUDY: 12/29/2014 CT DOSE: TECHNIQUE: CT scan of the cervical spine was performed from the skull base to the thoracic inlet. Images are reviewed in the axial, sagittal, and coronal planes. IV contrast was not administered for this examination. A dose lowering technique was utilized adhering to the principles of ALARA. FINDINGS: There is no apical pneumothorax. There is pulmonary emphysema. There is a partially calcified right apical granuloma. The prevertebral soft tissues are normal. No fractures or subluxations are visualized. There are multilevel degenerative changes IMPRESSION: No evidence of acute fracture or traumatic subluxation. ACT 112: Negative or not required by law. Electronically signed by: Keven Anderson M.D. 04/23/2020 10:07 AM Dictated: 04/23/20 1005Transcribed: 04/23/[address] SCAN OF THE ABDOMEN AND PELVIS WITH IV CONTRAST CLINICAL HISTORY: Syncope. Generalized abdominal pain. COMPARISON STUDY: Abdominal CT dated 01/08/2020. TECHNIQUE: Following the IV administration of 120 cc of Optiray 320, CT scan of the abdomen and pelvis is performed from the lung bases to the proximal femora. Images are reviewed in the axial, sagittal, and coronal planes. IV contrast was administered without complication. A dose lowering technique was utilized adhering to the principles of ALARA. FINDINGS: Lung bases: The patient is status post midline sternotomy. The heart is enlarged and without pericardial effusion. Pacemaker leads are noted. The coronary arteries, mitral annulus, and aortic valve leaflets are densely calcified. Emphysematous change is noted. Scarring/atelectasis is seen at the lung bases. No airspace consolidation, pleural effusion, or basilar pneumothorax is identified. There is a small hiatal hernia. Liver: The contrast-enhanced liver is normal in size, contour, and attenuation. There is no intrahepatic biliary ductal dilatation. The hepatic veins and portal veins are patent. Gallbladder: Unremarkable. Spleen: Normal in size and attenuation. Pancreas: Unremarkable. Adrenal glands: A 1.7 cm right adrenal nodule is unchanged. The left adrenal gland is normal in appearance. Kidneys: The contrast enhanced kidneys demonstrate mild cortical atrophy and are without hydronephrosis. The kidneys enhance symmetrically. There are least 2 nonobstructing right renal calculi which measure up to 11 mm. Abdominal vasculature: There is advanced atherosclerotic calcification of the abdominal aorta. 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 There is mild aneurysmal dilatation of the abdominal aorta which measures up to 3.5 cm. 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 Bowel: There is moderate colonic diverticulosis without CT evidence of acute diverticulitis. There is postoperative change from right hemicolectomy with ileocolic anastomosis. No bowel obstruction is seen. Mild/moderate fecal retention is seen throughout the colon. Peritoneum: There is no intraperitoneal free air or abdominal ascites. Lymphadenopathy: None. Pelvic viscera: The prostate gland is enlarged and heterogeneous noting median lobe hypertrophy. The bladder wall is thickened and trabeculated indicating chronic outlet obstruction. There is a small fat-containing right inguinal hernia, as well as evidence of previous left inguinal herniorrhaphy. Skeletal structures: The skeletal structures are osteopenic. The lumbosacral spine, bony pelvis, and proximal femora appear intact. There are mild chronic superior endplate compression deformities of T11 and T12. Mild to moderate lumbosacral spondylosis is observed. No lytic or blastic lesions are seen. IMPRESSION: 1. There is no evidence of solid organ injury in the abdomen or pelvis. 2. There is mild aneurysmal dilatation and postoperative change of the abdominal aorta which measures up to 3.5 cm in diameter. 3. Cardiomegaly, cardiac pacemaker, and emphysema. 4. There is postoperative change from right hemicolectomy with ileocolic anastomosis. No bowel obstruction is seen. 5. Prostatomegaly with evidence of chronic bladder outlet obstruction. 6. Moderate colonic diverticulosis without CT evidence of acute diverticulitis. 7. 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 8. Additional findings as above. ACT 112: Negative or not required by law. Electronically signed by: Mohinder Perez M.D. 04/23/2020 10:24 AM Dictated: 04/23/20 1005Transcribed: 04/23/20 1005 ECG Data Indication: + syncope Rate (beats per minute): 74 Rhythm: + normal sinus ECG Intervals/blocks: + Normal QRS, + Normal OH and + Normal QT-c ECG ST segments: + Normal ST segments MDM Narrative 0844: The patient was evaluated in room C11. A complete history and physical exam was performed Cardiac monitoring: An order was placed for continuous cardiac monitoring. The monitor shows a rate of 70 with sinus rhythm 1125: Vital signs stable. Laceration repair was done. See procedure note. Labs and imaging within normal limits with the exception of hyponatremia of 127. Patient is having no focal neurological deficits at this time. No seizure-like activity. Imaging shows no traumatic injuries. Given the patient's reported syncopal episodes occurring 3 times today the patient will be admitted to [facility] service. Dr. Fortune has been notified. Impression & Plan Acute hyponatremia, Syncope Discharge Plan Visit Data Chief Complaint: Fall Stated Complaint: S/P FALL,HEAD LACERATION ED Provider: Harjit Levi Discharge Problem: Acute hyponatremia, Syncope Patient Disposition: Admitted As Inpatient Discharge Instructions Interventions: ED Discharge Assessment Last Done: 04/23/20 13:18 Discharge Problem: Syncope Qualifiers: Syncope type: unspecified Qualified Code(s): R55 - Syncope and collapse
--- NOTE | 2020-04-23 15:22 | XCELERA ---
[id number] \\[email or web address]\[id number]_[email or web address]\[id number]
[2020-04-23] MEDS: BIMATOPROST 0.01% OP SOLN 2.5 ML BTL OPB SCH (21:54)
[2020-04-23] MEDS: DORZOLAMIDE/TIMOLOL 22.3/6.8MG/ML 10 ML BTL OPL SCH (21:57)
[2020-04-23] MEDS: PANTOprazole 40 MG TAB PO SCH (21:58)
[2020-04-23] MEDS: CYANOCOBALAMIN 500 MCG TABLET (VITAMIN B-12) PO SCH (21:58)
[2020-04-23] MEDS: EZETIMIBE 10 MG TABLET PO SCH (21:58)
[2020-04-23] MEDS: SIMVASTATIN 80 MG TAB PO SCH (21:58)
[2020-04-23] MEDS ORDERED: MELATONIN 3 MG TAB PO PRN (22:14)
[2020-04-23] MEDS ORDERED: ACETAMINOPHEN 500 MG TAB PO ONE (22:15)
[2020-04-24] MEDS ORDERED: hydrALAZINE HCL 20 MG/ML VIAL IV STA (04:32)
--- NOTE | 2020-04-24 05:58 | Electrocardiogram Report ---
Test Reason : Blood Pressure : / mmHG Vent. Rate : 074 BPM Atrial Rate : 074 BPM P-R Int : 206 ms QRS Dur : 098 ms QT Int : 402 ms P-R-T Axes : 081 064 024 degrees QTc Int : 446 ms Sinus rhythm with PACs and Premature ventricular complexes Septal infarct , age undetermined Abnormal ECG When compared with ECG of 28-JAN-2013 12:31, Premature ventricular complexes are now Present Nonspecific T wave abnormality no longer evident in Lateral leads Confirmed by Angel Wade ([id number]) on 04/24/2020 5:58:15 AM Referred By: ED Confirmed By:Angel Wade
--- NOTE | 2020-04-24 06:07 | Electrocardiogram Report ---
Test Reason : Blood Pressure : / mmHG Vent. Rate : 073 BPM Atrial Rate : 073 BPM P-R Int : 196 ms QRS Dur : 104 ms QT Int : 412 ms P-R-T Axes : 065 039 040 degrees QTc Int : 453 ms Sinus rhythm with occasional Premature ventricular complexes and intermittent atrial pacing Anterior infarct (cited on or before 23-APR-2020) Abnormal ECG When compared with ECG of 23-APR-2020 08:49, Intermittent atrial pacing is now present Confirmed by Angel Wade ([id number]) on 04/24/2020 6:06:47 AM Referred By: REFERRED SELF Confirmed By:Angel Wade
[2020-04-24 07:02] LABS: Basophils # (auto) 0.02 K/uL (0-0.2); Basophils % (auto) 0.3 %; Eosinophils # (auto) 0.11 K/uL (0-0.5); Eosinophils % (auto) 1.9 %; Hematocrit (blood only) 37.3 % (42-52); Hemoglobin 12.9 g/dL (14.0-18.0); Immature Granulocytes # (auto) 0.01 K/uL (0.00-0.02); Immature Granulocytes % (auto) 0.2 %; Lymphocytes % (auto) 15.3 %; Mean Corpuscular Hemoglobin 28.2 pg (25-34); Mean Corpuscular Hgb Conc 34.6 g/dL (32-36); Mean Corpuscular Volume 81.4 fL (80-100); Mean Platelet Volume 9.9 fL (7.4-10.4); Monocytes # (auto) 0.62 K/uL (0.11-0.59); Monocytes % (auto) 10.5 %; Neutrophils # (auto) 4.24 K/uL (1.4-6.5); Neutrophils % (auto) 71.8 %; Platelet Count 161 K/uL (130-400); RDW Coefficient of Variation 13.9 % (11.5-14.5); RDW Standard Deviation 41.7 fL (36.4-46.3); Red Blood Count 4.58 M/uL (4.7-6.1)
[2020-04-24 07:40] LABS: BUN Creatinine Ratio 11.3 (10-20); Calcium 8.3 mg/dl (8.5-10.1); Creatinine Clr Calc Pharmacy 60.5 ml/min; Est GFR (African American) 91.4; Est GFR (Non-African American) 78.9; Potassium 3.8 mmol/L (3.5-5.1)
[2020-04-24] MEDS: VALSARTAN 80 MG TAB PO SCH (09:01)
[2020-04-24] MEDS: MULTIVITAMIN CHEWABLE TAB PO SCH (09:01)
[2020-04-24] MEDS: PSYLLIUM 58.6% POWDER PACKET PO SCH (09:01)
[2020-04-24] MEDS: DORZOLAMIDE/TIMOLOL 22.3/6.8MG/ML 10 ML BTL OPL SCH ×2 (09:01→20:37)
[2020-04-24] MEDS: CHOLECALCIFEROL 1,000 UNITS 25 MCG TAB PO SCH (09:01)
[2020-04-24] MEDS: PANTOprazole 40 MG TAB PO SCH ×2 (09:01→20:36)
[2020-04-24] MEDS: ASPIRIN 325 MG ECTAB PO SCH (09:01)
[2020-04-24] MEDS: OMEGA-3 (PURIFIED FISH OIL) 1 GM CAP PO SCH (09:01)
[2020-04-24] MEDS: SODIUM CHLORIDE 0.9% 1000ML 1,000 ML IV SCH ×2 (09:23→17:27)
--- NOTE | 2020-04-24 11:11 | Gastrointestinal Consultation ---
Date of Consultation April 24, 2020 Assessment & Plan (1) GERD (gastroesophageal reflux disease): Patient is known to GI service and is an established patient of Dr. Souza. Reports increased heartburn/GERD symptoms over the last week and increased gas x 2 weeks. He is moving his bowels well. He decreased home PPI to once daily. Recommend continuing PPI BID as ordered. Diet as tolerated. Supportive care. Follow-up as an outpatient (due 06/2020). Case reviewed with Dr. Souza. Thank you for the consult and reconsult if needed. Please refer to supervising physician addendum for further recommendations. Supervising Physician Co-Signing Physician Notes I have seen and examined the patient. I agree with note above by PAULA Cerda except as noted below. HPI Pt with worsening GERD and gas recently. Alos has constipaiiton. Uses Lactaid milk and minimizes other dairy. Recent decrease in omeprazole dose to once daily PE Abdomen pos bs, soft, no guarding nor rebound A/P GERD increase back to bid PPI dosing gas--would recommend avoiding dairy entirely as a trial. Constipation can contribut. constipaiton--would take miralax up to tid prn to keep bowels moving. Can see patient back in the office in followup. Will sign off. Plesae call for further question. History of Present Illness Attending Physician: Rg Oleary History of Present Illness The patient is a 85-year-old male with a past medical history to include GERD, hypertension, anxiety, PVD, h/o colon cancer, hypercholesterolemia, CAD, celiac sprue, Pearce's esophagus, iron deficiency anemia that presented to the ED s/p fall at home with LOC. GI consulted due to patient complaints of gas, bloating, and heartburn worse over the last 2 weeks. Established patient of Dr. Souza. 01/22/2020: EGD/colonoscopy at [facility] by DR Ortez. EGD showed barretts and bx c/w barretts, no other findings or path done. Gerlaw to ileum showing ileocolonic anastomosis in AC, internal hemorrhoids, sigmoid diverticulosis. On exam/interview today, patient reports overall doing well. He tolerated 100% of breakfast tray. Reports gas problems for the last 2 weeks. Reports he had tacos about a week ago and has had worsening of heartburn/epigastric burning sensation since that time. Had been taking omeprazole BID and decreased it to once daily because he was feeling better. Reports bowel movement x 3 04/23/2020 which are fairly solid per his report. Reports he is using charcoal tablets to reduce gas. Reports increased abdominal bloating. + flatus, + belching. Denies regurgitation. Occasional nausea without vomiting. Patient is a lifetime nonsmoker. Denies drug use including marijuana. Reports he consumes one beer/day. He is and lives with his . They had 2 children (1 ), 1 is living locally and is available to assist with care needs. Allergies Allergy/AdvReac Type Severity Reaction Status Date / Time gluten Allergy Unknown Nausea, Verified 04/23/20 09:36 stomach pain No Known Drug Allergies Allergy Unknown NONE Unverified 04/23/20 09:36 Home Medications Medication Instructions Recorded Confirmed Type bimatoprost 0.01 % eye drops 1 drp OPB HS ml 11/08/18 04/23/20 History dorzolamide 22.3 mg-timolol 6.8 1 drp OPL BID ml 11/08/18 04/23/20 History mg/mL eye drops cholecalciferol (vitamin D3) 50 2,000 units PO QAM 11/09/18 04/23/20 History mcg (2,000 unit) capsule mecobalamin (vitamin B12) 1,000 2,500 mcg SL PM tab 11/09/18 04/23/20 History mcg disintegrating tablet,sublingual omega-3 fatty acids 1,000 mg 1,000 mg PO QAM 11/09/18 04/23/20 History capsule psyllium seed (aspartame) oral 1.65 gm PO QAM gm 11/09/18 04/23/20 History powder ezetimibe 10 mg-simvastatin 80 mg 1 tab PO QPM #90 tab 07/04/19 04/23/20 Rx tablet activated charcoal 200 mg capsule 400 mg PO DAILY PRN cap 08/09/19 04/23/20 History aspirin 325 mg tablet,delayed 325 mg PO QAM 08/09/19 04/23/20 History release melatonin 1 ea PO HS 08/09/19 04/23/20 History triamterene-hydrochlorothiazid 1 cap PO QAM 01/15/20 04/23/20 History multivitamin with iron 1 tab PO QAM 04/23/20 04/23/20 History omeprazole 20 mg capsule,delayed 20 mg PO BID #180 cap 04/23/20 04/23/20 Rx release valsartan 80 mg PO QAM 04/23/20 04/23/20 History Patient History Medical History History of colon cancer 2014 surgical intervention only for colon cancer Hx of cardiac pacemaker [facility] - 2010 -syncope-bradycardia last check 07/[address] Hartman Surgical History History of abdominal aortic aneurysm repair x3 History of colon surgery 2014 surgical intervention only for colon cancer History of colonoscopy fiberoptic History of foot surgery History of hand surgery 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 Hx of heart bypass surgery x 2 vessel in 1994 failed stress test Hx of hernia repair double hernia repair Hx of shoulder surgery Arthroscopy with Rotator cuff repair Status post carotid surgery Thromboendarterectomy Family History Father Prostate cancer Myocardial infarction Heart disease Hypertension Mother Arthritis Cerebral artery occlusion Heart disease Hypertension Daughter Asthma Cancer of brain Breast cancer Brother Myocardial infarction Heart disease Hypertension Denies family history of Ovarian cancer Social History Smoking Status: Never smoker Second Hand Exposure: No; Hx Alcohol Use: Yes Alcohol type: beer Hx Substance Use: No Preferred Language: Kenyan Communication Ability: Effective Kinesiology Professor 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 Beliefs That Will Affect Care: None marital status: Current Living Situation: Spouse current occupational status: retired Feels Safe at Home: Yes caffeine: Yes (coffee) Dental Care, Regularly: Yes Physical Activity Frequency: Daily Seatbelt Use: sometimes Sunscreen Use: Yes Assistive Devices: Denture - Upper, Denture - Lower, Glasses and Hearing Aid - Bilateral Review of Systems Review of Systems: All systems reviewed & are unremarkable except as noted in Subjective Physical Exam Constitutional: WD/WN, vitals as above no acute distress Neck: normal visual inspection and trachea midline Respiratory: normal respiratory effort, lungs clear to auscultation Cardiovascular: RRR, no murmur, no edema Gastrointestinal (Abdomen): Inspection/Auscultation: abdomen normal to inspection and normal bowel sounds Percussion/Palpation: abdomen soft; abdomen nontender, no guarding and abdomen not rigid Musculoskeletal: Extremities: extremities normal to inspection Skin: no rashes, warm and dry Neurologic: moves all extremities and awake Psychiatric: Orientation: alert and oriented x 3 Results & Data ([facility]) Vital Signs (Past 12 Hours) Vital Signs Temp Pulse Pulse Resp BP BP Pulse Ox 04/24/20 08:00 78 04/24/20 07:30 36.2 C L 85 16 183/75 H 97 04/24/20 04:00 36.7 C 67 18 194/74 H 193/74 H 95 04/24/20 02:18 68 Abnormal Lab Results 04/23/20 04/23/20 04/24/20 11:10 11:10 06:45 WBC 5.90 RBC 4.58 L Hgb 12.9 L Hct 37.3 L MCV 81.4 MCH 28.2 MCHC 34.6 RDW Std Deviation 41.7 RDW Coeff of Citlaly 13.9 Plt Count 161 MPV 9.9 Immature Gran % (Auto) 0.2 Neut % (Auto) 71.8 Lymph % (Auto) 15.3 [place] % (Auto) 10.5 Eos % (Auto) 1.9 Baso % (Auto) 0.3 Neut # (Auto) 4.24 Lymph # (Auto) 0.90 L [place] # (Auto) 0.62 H Eos # (Auto) 0.11 Baso # (Auto) 0.02 Immature Gran # (Auto) 0.01 Sodium Potassium Chloride Carbon Dioxide Anion Gap BUN Creatinine Est Cr Clr Drug Dosing Est GFR ( Amer) Est GFR (Non-Af Amer) BUN/Creatinine Ratio Glucose Calcium COVID-19 Eval Order Covid19 [facility] SARS-CoV-2, RNA, NAAT NEGATIVE 04/24/20 06:45 WBC RBC Hgb Hct MCV MCH MCHC RDW Std Deviation RDW Coeff of Citlaly Plt Count MPV Immature Gran % (Auto) Neut % (Auto) Lymph % (Auto) [place] % (Auto) Eos % (Auto) Baso % (Auto) Neut # (Auto) Lymph # (Auto) [place] # (Auto) Eos # (Auto) Baso # (Auto) Immature Gran # (Auto) Sodium 135 L D Potassium 3.8 Chloride 104 Carbon Dioxide 25 Anion Gap 6.0 BUN 10 Creatinine 0.88 Est Cr Clr Drug Dosing 60.5 Est GFR ( Amer) 91.4 Est GFR (Non-Af Amer) 78.9 BUN/Creatinine Ratio 11.3 Glucose 95 Calcium 8.3 L COVID-19 Eval Order SARS-CoV-2, RNA, NAAT
--- NOTE | 2020-04-24 15:10 | Cardiology Consultation ---
Date of Consultation April 24, 2020 Assessment & Plan (1) Syncope and collapse: (2) HTN (hypertension), benign: (3) CAD (coronary artery disease): (4) Hx of cardiac pacemaker: (5) Carotid artery stenosis: ASSESSMENT/PLAN: 1. Syncope and collapse: No arrhythmia or pause to account for his symptoms based on pacemaker interrogation. Given his nausea, warm feeling and diaphoresis just prior to loss of consciousness, would consider vagal response with resulting transient hypotension. He has not been orthostatic here. He has been hypertensive here. Would also consider further evaluation of his carotid arteries for which he follows with Dr. Mccauley. If no recent carotid ultrasound, would consider repeating. 2. CAD s/p CABG x 2: No angina. His heartburn symptoms are consistent with GI etiology as they are related with food, especially spicy foods. He experiences no chest discomfort with exertion. Continue anti-platelet therapy. Not clear if he has had intolerance in the past beta-leonarda, but could consider beta-leonarda especially with short runs of tachyarrhythmia. Continue statin therapy. 3. Hypertension: Blood pressure elevated. Recommend titration of antihypertensive regimen for better blood pressure control. Could further titrate valsartan or add beta-leonarda if no prior intolerance. 4. Carotid artery stenosis s/p right CEA: Consider reimaging carotid arteries if not done recently with his vascular surgeon to ensure no significant worsening that could account for his syncopal episode. 5. Dual chamber pacemaker: Interrogation performed earlier today. Nearing end of life but not yet. Follow-up with primary supervisor crack off, Dr. Hartman, who man ages his pacemaker. 6. Disposition: Cardiology will sign off at this time. Recommend close follow- up with his primary supervisor crack off, Dr. Hartman. Please call on-call supervisor crack off over the weekend for any questions or concerns. Plan of care communicated with primary hospitalist, Dr. Oleary. Thank you for allowing me to participate in the care of your patient. Please call for any other questions or concerns. Sincerely, Jon Wade M.D. History of Present Illness Reason for Consultation: Syncope/10 year old pacemaker Requesting Physician: Rg Oleary Attending Physician: Rg Oleary History of Present Illness Mr. Butt is an 85-year-old gentleman with history significant for CAD s/p CABG x 2 (1995 at [facility]), Carotid artery disease (L ICA 100%; s/p Right CEA 2005), AAA repair and aortobifemoral bypass (2009, followed by Dr. Mccauley), dual chamber pacemaker for sinus arrest ([employer] DDDR implanted April 2009 in [place]). He also has a history of hypertension and dyslipidemia. His primary supervisor crack off is Dr. Hartman. He was admitted on 04/23/2020 for syncope. At approximately 7:00 a.m. on 04/23/2020, he was standing at the bathroom sink and felt lightheaded, nauseated, warm, and diaphoretic. He briefly lost consciousness and fell to the floor. When he awakened, he quickly got up, took 2 steps, and once again lost consciousness falling to the floor. He quickly awakened, and once again stood up but had another syncopal event. He had no palpitations, chest pain, or shortness of breath related to this event. When he awakened the third time, he waited a while and then got in the bed. His checked his blood pressure and his systolic blood pressure was in the 160s. He reports that the last time he had syncope was approximately 10 years ago in [place] which resulted in a pacemaker placement. His pacemaker is followed by Dr. Hartman and documented last month that there was approximately 3 months of battery life until JOSE. Two days prior to this event, lisinopril was discontinued due to cough and losartan was initiated. He felt groggy the first day that he took the medication at approximately 10:00 a.m. and he laid down and symptoms resolved and felt much better the rest of the day. He has not been having issues with hypotension but rather hypertension. His cough improved off of lisinopril. One of his other major complaints is GI issues. He has a history of acid reflux and apparently had been prescribed a PPI b.i.d.. According to GI notes, he had reduce this to once daily. Over the past 2 weeks he has noted increased heartburn symptoms related to food, especially spicy food. With this, he has had some discomfort in the epigastric area and nausea. He exercises regularly and with walking, he denies chest discomfort. He has chronic dyspnea with exertion which was described as stable. He denies shortness of breath, orthopnea, palpitations, edema, or bleeding such as melena, hematochezia, or hematuria. While hospitalized, orthostatic vital signs have been evaluated by nursing staff. These were reported as negative. He was lightheaded this morning but his systolic blood pressure was in the 180s at that time per nursing staff. Review of systems: As above. Review of systems otherwise negative/unremarkable. Family history: Father and mother had CAD. Two brothers with pacemakers. Social history: Quit smoking in 1995. He consumes approximately 1 beer per day on occasion. No drugs. Lives at home with his . He had 2 daughters but 1 has . He was unaccompanied today. Allergies Allergy/AdvReac Type Severity Reaction Status Date / Time gluten Allergy Unknown Nausea, Verified 04/23/20 09:36 stomach pain No Known Drug Allergies Allergy Unknown NONE Unverified 04/23/20 09:36 Home Medications Medication Instructions Recorded Confirmed Type bimatoprost 0.01 % eye drops 1 drp OPB HS ml 11/08/18 04/23/20 History dorzolamide 22.3 mg-timolol 6.8 1 drp OPL BID ml 11/08/18 04/23/20 History mg/mL eye drops cholecalciferol (vitamin D3) 50 2,000 units PO QAM 11/09/18 04/23/20 History mcg (2,000 unit) capsule mecobalamin (vitamin B12) 1,000 2,500 mcg SL PM tab 11/09/18 04/23/20 History mcg disintegrating tablet,sublingual omega-3 fatty acids 1,000 mg 1,000 mg PO QAM 11/09/18 04/23/20 History capsule psyllium seed (aspartame) oral 1.65 gm PO QAM gm 11/09/18 04/23/20 History powder ezetimibe 10 mg-simvastatin 80 mg 1 tab PO QPM #90 tab 07/04/19 04/23/20 Rx tablet activated charcoal 200 mg capsule 400 mg PO DAILY PRN cap 08/09/19 04/23/20 History aspirin 325 mg tablet,delayed 325 mg PO QAM 08/09/19 04/23/20 History release melatonin 1 ea PO HS 08/09/19 04/23/20 History triamterene-hydrochlorothiazid 1 cap PO QAM 01/15/20 04/23/20 History multivitamin with iron 1 tab PO QAM 04/23/20 04/23/20 History omeprazole 20 mg capsule,delayed 20 mg PO BID #180 cap 04/23/20 04/23/20 Rx release valsartan 80 mg PO QAM 04/23/20 04/23/20 History Patient History Medical History CAD (coronary artery disease) Carotid artery stenosis Colorectal cancer (~02/2011) GERD (gastroesophageal reflux disease) Glaucoma, bilateral Gluten intolerance History of colon cancer 2014 surgical intervention only for colon cancer HTN (hypertension), benign Hx of cardiac pacemaker Hyperlipidemia Lower extremity neuropathy Neuropathy (2009) Sinus arrest Surgical History (Updated 04/24/20 @ 15:32 by Angel Wade MD) History of abdominal aortic aneurysm repair x3 History of colon surgery 2014 surgical intervention only for colon cancer History of colonoscopy fiberoptic History of foot surgery History of hand surgery 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 in urban pl[place] Hx of heart bypass surgery x 2 vessel in 1995 failed stress test Hx of hernia repair double hernia repair Hx of shoulder surgery Arthroscopy with Rotator cuff repair Status post carotid surgery Thromboendarterectomy Family History Father Prostate cancer Myocardial infarction Heart disease Hypertension Mother Arthritis Cerebral artery occlusion Heart disease Hypertension Daughter Asthma Cancer of brain Breast cancer Brother Myocardial infarction Heart disease Hypertension Denies family history of Ovarian cancer Social History Smoking Status: Never smoker Second Hand Exposure: No; Hx Alcohol Use: Yes Alcohol type: beer Hx Substance Use: No Preferred Language: Uzbek Communication Ability: Effective Municipal Clerk 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 Beliefs That Will Affect Care: None marital status: Current Living Situation: Spouse current occupational status: retired Feels Safe at Home: Yes caffeine: Yes (coffee) Dental Care, Regularly: Yes Physical Activity Frequency: Daily Seatbelt Use: sometimes Sunscreen Use: Yes Assistive Devices: Denture - Upper, Denture - Lower, Glasses and Hearing Aid - Bilateral Physical Exam Physical Exam: Gen.: No acute distress. Alert and oriented. HEENT: Anicteric sclera. Neck: No JVD. Bilateral carotid bruit. Cardiac: PMI was nonpalpable. No ventricular heave. Regular. Normal S1-S2. No murmurs, rubs, or gallops. Pulmonary: Clear to auscultation bilaterally without wheezes, rales, or rhonchi. Abdomen: Soft, nondistended, with normoactive bowel sounds. No bruits noted. Diffuse mild tenderness, without rebound tenderness. Extremities: 2+ radial pulses bilaterally. 2+ posterior tibialis pulses bilaterally. No edema or cyanosis. No palpable cords. Psychiatric: Affect appears appropriate. Results & Data ([facility]) Vital Signs (Past 12 Hours) Vital Signs Temp Pulse Pulse Resp BP BP Pulse Ox 04/24/20 14:51 81 04/24/20 11:35 36.3 C L 83 16 166/83 H 97 04/24/20 08:00 78 04/24/20 07:30 36.2 C L 85 16 183/75 H 97 04/24/20 04:00 36.7 C 67 18 194/74 H 193/74 H 95 Laboratory Results Laboratory Results - last 24 hr 04/24/20 04/24/20 06:45 06:45 WBC 5.90 RBC 4.58 L Hgb 12.9 L Hct 37.3 L MCV 81.4 MCH 28.2 MCHC 34.6 RDW Std Deviation 41.7 RDW Coeff of Citlaly 13.9 Plt Count 161 MPV 9.9 Immature Gran % (Auto) 0.2 Neut % (Auto) 71.8 Lymph % (Auto) 15.3 [place] % (Auto) 10.5 Eos % (Auto) 1.9 Baso % (Auto) 0.3 Neut # (Auto) 4.24 Lymph # (Auto) 0.90 L [place] # (Auto) 0.62 H Eos # (Auto) 0.11 Baso # (Auto) 0.02 Immature Gran # (Auto) 0.01 Sodium 135 L D Potassium 3.8 Chloride 104 Carbon Dioxide 25 Anion Gap 6.0 BUN 10 Creatinine 0.88 Est Cr Clr Drug Dosing 60.5 Est GFR ( Amer) 91.4 Est GFR (Non-Af Amer) 78.9 BUN/Creatinine Ratio 11.3 Glucose 95 Calcium 8.3 L Diagnostic Findings Telemetry personally reviewed: Sinus rhythm. Ectopy. No arrhythmia noted. Echo 04/23/2020: Normal LV size, wall motion, systolic function. EF 65-70%. Mild LVH. Mild left atrial dilation. Mild aortic stenosis with trace regurgitation. Moderate MAC. Mild MR. Moderate TR. Normal RVSP. Pacemaker interrogation was performed it did not demonstrate any significant pauses or arrhythmia at the time of his syncopal events. There was an episode of atrial flutter on 04/18/2020 that lasted for 42 seconds with a ventricular rate of 88 beats per minute. There was also ventricular lead noise noted occasionally, but once again no significant abnormalities found near the time of his syncopal events. ECG personally reviewed: ECG 04/24/2020 8:56 a.m.: Sinus rhythm with fusion complex. 89 beats per minute. Possible anterior infarct. ECG 04/23/2020 8:49 a.m.: Sinus rhythm with PACs and PVCs at 74 beats per minute. Septal infarct. Chest CTA 04/23/2020: No PE. No acute process per Radiology. Moderate emphysema. Medications Administered Current Inpatient Medications Aspirin (Aspirin 325 Mg Ectab) 325 mg PO QAM [facility] Stop: 05/24/20 08:59 Last Admin: 04/24/20 09:01 Dose: 325 mg Documented by: Bimatoprost (Bimatoprost 0.01% Op Soln 2.5 Ml Btl) 1 drops OPB HS [facility] Stop: 05/23/20 20:59 Last Admin: 04/23/20 21:54 Dose: 1 drops Documented by: Cyanocobalamin (Cyanocobalamin 500 Mcg Tablet (Vitamin B-12)) 2,000 mcg PO PM [facility]; Protocol Stop: 05/23/20 20:59 Last Admin: 04/23/20 21:58 Dose: 2,000 mcg Documented by: Dorzolamide/Timolol (Dorzolamide/Timolol 22.3/6.8mg/Ml 10 Ml Btl) 1 drops OPL BID [facility] Stop: 05/23/20 20:59 Last Admin: 04/24/20 09:01 Dose: 1 drops Documented by: Ezetimibe (Ezetimibe 10 Mg Tablet) 10 mg PO QPM [facility] Stop: 05/23/20 20:59 Last Admin: 04/23/20 21:58 Dose: 10 mg Documented by: Fish Oil ([place]-3 (Purified Fish Oil) 1 Gm Cap) 1 gm PO QAM [facility] Stop: 05/24/20 08:59 Last Admin: 04/24/20 09:01 Dose: 1 gm Documented by: Sodium Chloride (Nss 1000ml) 1,000 mls @ 125 mls/hr IV .Q8H [facility] Stop: 05/23/20 08:59 Last Admin: 04/24/20 09:23 Dose: Not Given Documented by: Melatonin (Melatonin 3 Mg Tab) 3 mg PO HS PRN PRN Reason: Sleep Stop: 05/23/20 22:13 Last Admin: 04/23/20 22:23 Dose: 3 mg Documented by: Multivitamins/Folic Acid/Vitamin C (Multivitamin Chewable Tab) [facility] Stop: 05/24/20 08:59 Last Admin: 04/24/20 09:01 Dose: 1 tab Documented by: Pantoprazole Sodium (Pantoprazole 40 Mg Tab) 40 mg PO BID [facility]; Protocol Stop: 05/23/20 20:59 Last Admin: 04/24/20 09:01 Dose: 40 mg Documented by: Psyllium Hydrophilic Mucilloid (Psyllium 58.6% Powder Packet) 1 pkt [facility] [place] Stop: 05/24/20 08:59 Last Admin: 04/24/20 09:01 Dose: 1 pkt Documented by: Simvastatin (Simvastatin 80 Mg Tab) 80 mg PO QPM [facility] Stop: 05/23/20 20:59 Last Admin: 04/23/20 21:58 Dose: 80 mg Documented by: Valsartan (Valsartan 80 Mg Tab) 80 [facility] [place] Stop: 05/24/20 08:59 Last Admin: 04/24/20 09:01 Dose: 80 mg Documented by: Vitamin D (Cholecalciferol 1,000 Units 25 Mcg Tab) 2,000 units PO QAM [facility] Stop: 05/24/20 08:59 Last Admin: 04/24/20 09:01 Dose: 2,000 units Documented by: PG Care Time/CCT Total # of Minutes Spent Total Time Spent with Patient: Total time spent is greater than 50% in coordination of care (as documented) at patient's floor/unit and/or counseling patient: Coding Level of Care Code 88414 Initial Inpt Care Lvl 3 Diagnoses Syncope and collapse R55 HTN (hypertension), benign I10 CAD (coronary artery disease) I25.10 Hx of cardiac pacemaker Z95.0 Carotid artery stenosis I65.29
[2020-04-24] MEDS ORDERED: ACETAMINOPHEN 325 MG TAB PO PRN (16:31)
[2020-04-24] MEDS: SIMVASTATIN 80 MG TAB PO SCH (20:36)
[2020-04-24] MEDS: CYANOCOBALAMIN 500 MCG TABLET (VITAMIN B-12) PO SCH (20:36)
[2020-04-24] MEDS: BIMATOPROST 0.01% OP SOLN 2.5 ML BTL OPB SCH (20:37)
[2020-04-24] MEDS: EZETIMIBE 10 MG TABLET PO SCH (20:37)
--- NOTE | 2020-04-24 21:51 | Hospitalist Progress Note ---
Date of Service April 24, 2020 Assessment & Plan (1) Syncope and collapse: TTE and pacemaker interrogation to check no arrhythmias at the time of him having the syncopal episode. Monitor on telemetry for recurrence Orthostatics q shif Consulted cardio: appears to be vasovagal. will obtain carotid doppler and monitort (2) Acute hyponatremia: Suspect secondary to HCTZ use. sodium is improving. will monitor. (3) GERD (gastroesophageal reflux disease): Switch omeprazole to pantoprazole per hospital formulary Consult his montessori program director for further advice regarding this as possible contributing factors and do not wish to prescript Carafate if any chance he would need EGD. EGD relatively unremarkable in 01/2020 (4) HTN (hypertension), benign: Continue valsartan and triamterene. 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 He has no new complaints. Review of Systems Review of Systems: All systems reviewed & are unremarkable except as noted in HPI & below Physical Exam Physical Exam: Constitutional: well developed and well nourished; no acute distress Respiratory: normal respiratory effort, lungs clear to auscultation Cardiovascular: RRR, no murmur, no edema Gastrointestinal (Abdomen): Inspection/Auscultation: abdomen normal to inspection and normal bowel sounds Percussion/Palpation: nontender and abdomen soft; no guarding and abdomen not rigid Musculoskeletal: no cyanosis or clubbing, extremities motor strength 5/5 Skin: no rashes, warm and dry Neurologic: CN's II-XI intact bilaterally, moves all extremities and awake; no focal motor deficits and not confused Speech / Cognition: normal speech Motor/Sensory: no tremor and no pronator drift Psychiatric: Orientation: alert and oriented x 3 Genitourinary: no CVA tenderness Results & Data Results & Data ([facility]) Vital Signs (Past 12 Hours) Vital Signs Temp Pulse Pulse Resp BP BP Pulse Ox 04/24/20 19:20 36.9 C 85 20 179/87 H 97 04/24/20 15:00 36.4 C L 81 18 190/82 H 196/84 H 97 04/24/20 14:51 81 04/24/20 11:35 36.3 C L 83 16 166/83 H 97 PG Care Time/CCT Total # of Minutes Spent Total Time Spent with Patient: Total time spent is greater than 50% in coordination of care (as documented) at patient's floor/unit and/or counseling patient: Coding Level of Care Code 63526 Subseq Hosp Care Lvl 3 Diagnoses Syncope and collapse R55 Acute hyponatremia E87.1 GERD (gastroesophageal reflux disease) K21.9 HTN (hypertension), benign I10 Hyperlipidemia E78.5 Hx of cardiac pacemaker Z95.0 Laceration of head S01.91XA Time Spent (min) 35
[2020-04-24] MEDS ORDERED: METOPROLOL TARTRATE 25 MG TAB PO STA (23:01)
--- NOTE | 2020-04-24 23:04 | Communication Note ---
Date of Service: April 24, 2020 Nursing called and patient due to patient having elevated blood pressure to the 190's systolic, on recheck he continued to have elevated blood pressures to 198 systolic. Patient given a one time dose of Lopressor after reviewing cardiology note that discusses either increasing V[place] or adding a beta leonarda to address HTN. Will continue to follow
--- NOTE | 2020-04-25 06:55 | Electrocardiogram Report ---
Test Reason : Blood Pressure : / mmHG Vent. Rate : 089 BPM Atrial Rate : 089 BPM P-R Int : 200 ms QRS Dur : 104 ms QT Int : 372 ms P-R-T Axes : 050 051 047 degrees QTc Int : 452 ms Sinus rhythm with Premature atrial complexes Anterior infarct (cited on or before 23-APR-2020) Abnormal ECG When compared with ECG of 23-APR-2020 11:33, Premature ventricular complexes are no longer Present Atrial pacing is no longer present Confirmed by Angel Wade ([id number]) on 04/25/2020 6:55:26 AM Referred By: REFERRED SELF Confirmed By:Angel Wade
[2020-04-25] MEDS: VALSARTAN 80 MG TAB PO SCH (07:34)
[2020-04-25] MEDS: OMEGA-3 (PURIFIED FISH OIL) 1 GM CAP PO SCH (07:34)
[2020-04-25] MEDS: PSYLLIUM 58.6% POWDER PACKET PO SCH (07:35)
[2020-04-25] MEDS: PANTOprazole 40 MG TAB PO SCH ×2 (07:35→21:05)
[2020-04-25] MEDS: CHOLECALCIFEROL 1,000 UNITS 25 MCG TAB PO SCH (07:35)
[2020-04-25] MEDS: ASPIRIN 325 MG ECTAB PO SCH (07:35)
[2020-04-25] MEDS: MULTIVITAMIN CHEWABLE TAB PO SCH (07:35)
[2020-04-25] MEDS: DORZOLAMIDE/TIMOLOL 22.3/6.8MG/ML 10 ML BTL OPL SCH ×2 (07:36→19:04)
[2020-04-25 07:50] LABS: Hemoglobin 13.1 g/dL (14.0-18.0); Mean Corpuscular Hemoglobin 28.7 pg (25-34); Mean Corpuscular Hgb Conc 35.4 g/dL (32-36); Mean Corpuscular Volume 81.1 fL (80-100); Mean Platelet Volume 9.7 fL (7.4-10.4); Platelet Count 164 K/uL (130-400); RDW Standard Deviation 41.9 fL (36.4-46.3); Red Blood Count 4.56 M/uL (4.7-6.1)
[2020-04-25 08:07] LABS: BUN Creatinine Ratio 10.5 (10-20); Creatinine Clr Calc Pharmacy 59.1 ml/min; Est GFR (African American) 90.6; Est GFR (Non-African American) 78.2; Potassium 3.6 mmol/L (3.5-5.1)
--- NOTE | 2020-04-25 12:32 | Ultrasound Report ---
BILATERAL CAROTID DOPPLER STUDY HISTORY: syncope COMPARISON: Carotid Doppler 11/24/2005. TECHNIQUE: Real-time, grayscale, and color Doppler sonography of the carotid arteries was performed. Imaging reviewed in the transverse and longitudinal planes. All measurements were calculated based on NASCET criteria. FINDINGS: Antegrade flow is seen in the bilateral vertebral arteries. The brachial pressures are hemodynamically similar. Mild to moderate calcified plaque within the right carotid bifurcation. The peak systolic velocity within the right ICA is 114 cm/s. The right systolic ratio is 0.9. 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 There is moderate stenosis within the left exter nal carotid artery. The left common carotid artery is patent.. IMPRESSION: 1. No change in the chronic occlusion of the left ICA. 2. No hemodynamically significant stenosis within the right internal carotid artery. ACT 112: Negative or not required by law. Electronically signed by: Peewee Cotter M.D. 04/25/2020 12:30 PM
[2020-04-25] MEDS ORDERED: amLODIPine BESYLATE 5 MG TAB PO ONE (12:44)
[2020-04-25] MEDS ORDERED: LOSARTAN POTASSIUM 25 MG TAB PO SCH (12:45)
[2020-04-25] MEDS ORDERED: POLYETHYLENE (MIRALAX) 17 GM PACK PO SCH (14:30)
[2020-04-25] MEDS: POLYETHYLENE (MIRALAX) 17 GM PACK PO SCH (15:26)
[2020-04-25] MEDS: CYANOCOBALAMIN 500 MCG TABLET (VITAMIN B-12) PO SCH (21:04)
[2020-04-25] MEDS: ATORVASTATIN 40 MG TAB PO SCH (21:05)
[2020-04-25] MEDS: EZETIMIBE 10 MG TABLET PO SCH (21:07)
[2020-04-25] MEDS: BIMATOPROST 0.01% OP SOLN 2.5 ML BTL OPB SCH (21:08)
[2020-04-25] MEDS ORDERED: COUGH DROP (SUGAR FREE) LOZ 24 LOZ/1 BOX BUCCAL ONE (21:18)
--- NOTE | 2020-04-25 22:08 | Hospitalist Progress Note ---
Date of Service April 25, 2020 Assessment & Plan (1) Syncope and collapse: TTE and pacemaker interrogation to check no arrhythmias at the time of him having the syncopal episode. Monitor on telemetry for recurrence Orthostatics q shift Consulted cardio: appears to be vasovagal. will obtain carotid doppler: no signifcant change. (2) Acute hyponatremia: Suspect secondary to HCTZ use. sodium is improving. will monitor. (3) GERD (gastroesophageal reflux disease): Switch omeprazole to pantoprazole per hospital formulary Consult his chiller technician for further advice regarding this as possible contributing factors and do not wish to prescript Carafate if any chance he would need EGD. 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 He has no new complaints except for constipation. Review of Systems Review of Systems: All systems reviewed & are unremarkable except as noted in HPI & below Physical Exam Physical Exam: Constitutional: well developed and well nourished; no acute distress Respiratory: normal respiratory effort, lungs clear to auscultation Cardiovascular: RRR, no murmur, no edema Gastrointestinal (Abdomen): Inspection/Auscultation: abdomen normal to inspection and normal bowel sounds Percussion/Palpation: nontender and abdomen soft; no guarding and abdomen not rigid Musculoskeletal: no cyanosis or clubbing, extremities motor strength 5/5 Skin: no rashes, warm and dry Neurologic: CN's II-XI intact bilaterally, moves all extremities and awake; no focal motor deficits and not confused Speech / Cognition: normal speech Motor/Sensory: no tremor and no pronator drift Psychiatric: Orientation: alert and oriented x 3 Genitourinary: no CVA tenderness Results & Data Results & Data ([facility]) Vital Signs (Past 12 Hours) Vital Signs Temp Pulse Pulse Resp BP BP Pulse Ox 04/25/20 19:04 76 177/81 H 04/25/20 18:52 36.6 C 71 18 97 04/25/20 16:00 67 04/25/20 15:40 36.4 C L 70 16 186/79 H 191/75 H 98 04/25/20 10:53 61 04/25/20 10:42 36.6 C 72 16 186/76 H 99 PG Care Time/CCT Total # of Minutes Spent Total Time Spent with Patient: Total time spent is greater than 50% in coordination of care (as documented) at patient's floor/unit and/or counseling patient: Coding Level of Care Code 68972 Subseq Hosp Care Lvl 2 Diagnoses Syncope and collapse R55 Acute hyponatremia E87.1 GERD (gastroesophageal reflux disease) K21.9 HTN (hypertension), benign I10 Hyperlipidemia E78.5 Hx of cardiac pacemaker Z95.0 Laceration of head S01.91XA Time Spent (min) 25
[2020-04-26] MEDS: DORZOLAMIDE/TIMOLOL 22.3/6.8MG/ML 10 ML BTL OPL SCH ×2 (07:33→17:49)
[2020-04-26] MEDS: VALSARTAN 80 MG TAB PO SCH (07:34)
[2020-04-26] MEDS: CHOLECALCIFEROL 1,000 UNITS 25 MCG TAB PO SCH (07:34)
[2020-04-26] MEDS: ASPIRIN 325 MG ECTAB PO SCH (07:35)
[2020-04-26] MEDS: PSYLLIUM 58.6% POWDER PACKET PO SCH (07:35)
[2020-04-26] MEDS: POLYETHYLENE (MIRALAX) 17 GM PACK PO SCH (07:35)
[2020-04-26] MEDS: MULTIVITAMIN CHEWABLE TAB PO SCH (07:35)
[2020-04-26] MEDS: CHLORTHALIDONE 25 MG TAB PO SCH (09:43)
[2020-04-26] MEDS: PANTOprazole 40 MG TAB PO SCH ×2 (10:52→21:35)
[2020-04-26] MEDS: OMEGA-3 (PURIFIED FISH OIL) 1 GM CAP PO SCH (10:52)
[2020-04-26] MEDS ORDERED: amLODIPine BESYLATE 5 MG TAB PO ONE (16:41)
[2020-04-26] MEDS: EZETIMIBE 10 MG TABLET PO SCH (21:35)
[2020-04-26] MEDS: CYANOCOBALAMIN 500 MCG TABLET (VITAMIN B-12) PO SCH (21:36)
[2020-04-26] MEDS: ATORVASTATIN 40 MG TAB PO SCH (21:36)
[2020-04-26] MEDS: BIMATOPROST 0.01% OP SOLN 2.5 ML BTL OPB SCH (21:36)
--- NOTE | 2020-04-26 22:40 | Hospitalist Progress Note ---
Date of Service April 26, 2020 Assessment & Plan (1) Syncope and collapse: TTE and pacemaker interrogation to check no arrhythmias at the time of him having the syncopal episode. Monitor on telemetry for recurrence Orthostatics q shift Consulted cardio: appears to be vasovagal. will obtain carotid doppler: no signifcant change. (2) Acute hyponatremia: Suspect secondary to HCTZ use. sodium is improving. However, given his Hypertension, will order chlorthalidone will monitor. (3) GERD (gastroesophageal reflux disease): Switch omeprazole to pantoprazole per hospital formulary Consult his manager critical care for further advice regarding this as possible contributing factors and do not wish to prescript Carafate if any chance he would need EGD. EGD relatively unremarkable in 01/2020 (4) HTN (hypertension), benign: Continue valsartan Will add amlodipine will add chlorthalidone. B/P is slightly better. 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 He has no new complaints at this time. Patient had a BM today. Review of Systems Review of Systems: All systems reviewed & are unremarkable except as noted in HPI & below Physical Exam Physical Exam: Constitutional: well developed and well nourished; no acute distress Respiratory: normal respiratory effort, lungs clear to auscultation Cardiovascular: RRR, no murmur, no edema Gastrointestinal (Abdomen): Inspection/Auscultation: abdomen normal to inspection and normal bowel sounds Percussion/Palpation: nontender and abdomen soft; no guarding and abdomen not rigid Musculoskeletal: no cyanosis or clubbing, extremities motor strength 5/5 Skin: no rashes, warm and dry Neurologic: CN's II-XI intact bilaterally, moves all extremities and awake; no focal motor deficits and not confused Speech / Cognition: normal speech Motor/Sensory: no tremor and no pronator drift Psychiatric: Orientation: alert and oriented x 3 Genitourinary: no CVA tenderness Results & Data Results & Data ([facility]) Vital Signs (Past 12 Hours) Vital Signs Temp Pulse Pulse Resp BP BP Pulse Ox 04/26/20 19:15 36.5 C 68 18 168/83 H 98 04/26/20 16:48 83 04/26/20 15:20 36.3 C L 65 18 192/67 H 96 04/26/20 11:12 36.4 C L 64 18 185/92 H 98 PG Care Time/CCT Total # of Minutes Spent Total Time Spent with Patient: Total time spent is greater than 50% in coordination of care (as documented) at patient's floor/unit and/or counseling patient: Coding Level of Care Code 60121 Subseq Hosp Care Lvl 3 Diagnoses Syncope and collapse R55 Acute hyponatremia E87.1 GERD (gastroesophageal reflux disease) K21.9 HTN (hypertension), benign I10 Hyperlipidemia E78.5 Hx of cardiac pacemaker Z95.0 Laceration of head S01.91XA Time Spent (min) 35
[2020-04-27 09:18] LABS: Hematocrit (blood only) 39.7 % (42-52); Hemoglobin 13.3 g/dL (14.0-18.0); Mean Corpuscular Hemoglobin 27.9 pg (25-34); Mean Corpuscular Hgb Conc 33.5 g/dL (32-36); Mean Corpuscular Volume 83.4 fL (80-100); Mean Platelet Volume 9.7 fL (7.4-10.4); Platelet Count 178 K/uL (130-400); RDW Coefficient of Variation 14.1 % (11.5-14.5); RDW Standard Deviation 43.6 fL (36.4-46.3); Red Blood Count 4.76 M/uL (4.7-6.1); White Blood Count 8.39 K/uL (4.8-10.8)
[2020-04-27 09:33] LABS: BUN Creatinine Ratio 10.5 (10-20); Calcium 9.1 mg/dl (8.5-10.1); Creatinine Clr Calc Pharmacy 48.8 ml/min; Est GFR (African American) 71.9; Potassium 3.6 mmol/L (3.5-5.1)
[2020-04-27] MEDS: DORZOLAMIDE/TIMOLOL 22.3/6.8MG/ML 10 ML BTL OPL SCH (09:56)
[2020-04-27] MEDS: CHLORTHALIDONE 25 MG TAB PO SCH (09:56)
[2020-04-27] MEDS: CHOLECALCIFEROL 1,000 UNITS 25 MCG TAB PO SCH (09:58)
[2020-04-27] MEDS: ASPIRIN 325 MG ECTAB PO SCH (09:59)
[2020-04-27] MEDS: OMEGA-3 (PURIFIED FISH OIL) 1 GM CAP PO SCH (10:00)
[2020-04-27] MEDS: PANTOprazole 40 MG TAB PO SCH (10:00)
[2020-04-27] MEDS: MULTIVITAMIN CHEWABLE TAB PO SCH (10:00)
[2020-04-27] MEDS: POLYETHYLENE (MIRALAX) 17 GM PACK PO SCH (10:01)
[2020-04-27] MEDS: PSYLLIUM 58.6% POWDER PACKET PO SCH (10:02)
[2020-04-27] MEDS: VALSARTAN 80 MG TAB PO SCH (10:03)
--- NOTE | 2020-05-03 20:57 | Discharge Summary ---
Date of Service April 27, 2020 Admission HPI Per Admitting Provider Troy Butt is an 85 year old male who presents to the ER with presyncope/syncope events occurring today in his bathroom. He does note his PCP switched his lisinopril to valsartan due to cough as side effect and he took the first dose of this yesterday morning. He reports possible complete loss of consciousness (approx 1 second) with a feeling of dizziness/lightheadedness/diaphoresis prior to falling. He does remember falling. No chest pain or shortness of breath. On the last occasion he hit his head causing some bleeding. He has been walking around since the fall with no hip/groin pain. He notes similar occurrence prior to him needing his current pacemaker. He is concerned about progressively worsening abdominal pain that it may be related to his syncope. Associated acid taste in the back of his mouth. He has known GERD but reports it has not been under control for the last 2 weeks. He does note eating spicy tacos approximately 1 week ago but symptoms were already getting worse prior to then. He has increased his omeprazole to BID for the last 3 days with no improvement. Principal Diagnosis syncope Discharge Exam Constitutional: well developed and well nourished; no acute distress Respiratory: normal respiratory effort, lungs clear to auscultation Cardiovascular: RRR, no murmur, no edema Gastrointestinal (Abdomen): Inspection/Auscultation: abdomen normal to inspection and normal bowel sounds Percussion/Palpation: nontender and abdomen soft; no guarding and abdomen not rigid Musculoskeletal: no cyanosis or clubbing, extremities motor strength 5/5 Skin: no rashes, warm and dry Neurologic: CN's II-XI intact bilaterally, moves all extremities and awake; no focal motor deficits and not confused Speech / Cognition: normal speech Motor/Sensory: no tremor and no pronator drift Psychiatric: Orientation: alert and oriented x 3 Genitourinary: no CVA tenderness Discharge Data Allergies Allergy/AdvReac Type Severity Reaction Status Date / Time gluten Allergy Unknown Nausea, Verified 04/30/20 09:34 stomach pain No Known Drug Allergies Allergy Unknown NONE Unverified 04/30/20 09:34 Consultations 04/23/20 10:57 ED Decision to Admit Stat 04/23/20 18:31 Consult Gastroenterology Routine 04/24/20 09:28 Consult Cardiology Routine Ordered Studies 04/23/20 08:56 CT abd pelvis IV con only Stat CT cervical spine wo con Stat CT head/brain wo con Stat 04/23/20 09:39 CT angio chest PE protocol Stat 04/25/20 11:07 US carotid doppler BI Routine Hospital Course (1) Syncope and collapse: TTE and pacemaker interrogation to check no arrhythmias at the time of him having the syncopal episode. Monitor on telemetry for recurrence Orthostatics q shift Consulted cardio: appears to be vasovagal. carotid doppler: no signifcant change. stopped diuretics. (2) Acute hyponatremia: Suspect secondary to HCTZ use. sodium is improving. However, given his Hypertension, would prefer a non diuretic. metoprolol and amlodipine ordered for discharge. (3) GERD (gastroesophageal reflux disease): Switch omeprazole to pantoprazole per hospital formulary Consult his foam caster for further advice regarding this as possible contributing factors and do not wish to prescript Carafate if any chance he would need EGD. EGD relatively unremarkable in 01/2020 (4) HTN (hypertension), benign: Continue valsartan Will add amlodipine stopped chlorthalidone as sodium was getting low again. ill be on Metoprolol B/P is slightly better. 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 (7) Laceration of head: x1 Staple placed in ER remove in week Total Time Total Time Spent Total Time Spent (In Minutes): 32 Total Time Includes: Examination of the Patient, Discharge Planning and Medication Reconciliation Discharge Plan Discharge Items Patient Disposition: Home - Self-Care Reason For Visit: HYPONATREMIA,SYNCOPE Discharge Diagnosis: hyponatrmia/ syncope Activity: Resume your previous activity Non-emergency contact: Primary Care Provider Call non-emergency contact if: you have any medication questions Follow-up/Referrals: Ramiro Hartman MD [Physician] - 05/11/20 3:15 pm Georgiana Austin MD [Primary Care Provider] - 04/30/20 9:30 am Diet: Regular Addtl Attending Provider Instructions: You will be discharged on a new regimen for blood pressure. Given how you develop low sodium levels, we will discharge you on metoprolol and amlodipine. You will take these medications in the evening. Your blood pressure may be above your normal level as these may decrease your blood pressure slowly. Will recommend you followup with your primary care provider within the next week. Recommend followup with Dr. Hartman within next 2 weeks. Pending Studies at Discharge: No Stand-Alone Forms: My [facility], Smoking Cessation Medications and DC Order Prescriptions: New atorvastatin 40 mg Tablet 40 mg PO QPM Qty: 30 RF: 0 metoprolol succinate 25 mg tablet extended release 24 hr 25 mg PO QPM Qty: 30 RF: 0 amlodipine 2.5 mg tablet 2.5 mg PO QPM Qty: 30 RF: 0 Continued omeprazole 20 mg capsule,delayed release(DR/EC) 20 mg PO BID Qty: 180 RF: 3 omega-3 fatty acids [Fish Oil Concentrate] 1,000 mg capsule 1,000 mg PO QAM RF: 0 Natural Fiber Laxative(aspart) powder 1.65 gm PO QAM RF: 0 mecobalamin (vitamin B12) 1,000 mcg tablet,disintegrating 2,500 mcg SL PM RF: 0 cholecalciferol (vitamin D3) 2,000 unit capsule 2,000 units PO QAM RF: 0 ezetimibe-simvastatin [Vytorin 10-80] 10-80 mg tablet 1 tab PO QPM Qty: 90 RF: 3 aspirin [Ecotrin] 325 mg tablet,delayed release (DR/EC) 325 mg PO QAM RF: 0 activated charcoal 200 mg capsule 400 mg PO DAILY PRN (Reason: Nausea) RF: 0 melatonin 1 ea PO HS RF: 0 dorzolamide-timolol 22.3-6.8 mg/mL drops 1 drp OPL BID RF: 0 bimatoprost 0.01 % drops 1 drp OPB HS RF: 0 multivitamin with iron Tablet 1 tab PO QAM RF: 0 valsartan 80 mg tablet 80 mg PO QAM RF: 0 Discontinued triamterene-hydrochlorothiazid 37.5-25 mg capsule 1 cap PO QAM RF: 0 Discharge Orders: Discharge Order (Routine); Ordered 04/27/20 Ordered By: Rg Oleary Admission Data Admit Date/Time: 04/23/20 11:21 Attending Provider: Rg Oleary Admit Provider: Jerome Fortune Primary Care Provider: Georgiana Austin Other Providers: Sheri,Angel W. Other Interventions: Discharge Summary Assessment (RN) Last Done: 04/27/20 14:21 Coding Level of Care Code D/C Day Management >30 mins Diagnoses Syncope and collapse R55 Acute hyponatremia E87.1 GERD (gastroesophageal reflux disease) K21.9 HTN (hypertension), benign I10 Hyperlipidemia E78.5 Hx of cardiac pacemaker Z95.0 Laceration of head S01.91XA Time Spent (min) 32
== END 2020-04-27 15:23 | disposition home or self-care (01) ==
LOC: ED 08:35 → SUATTDRO 11:21 → INTOOBSV 11:21 → 2N 11:21

== ENCOUNTER 2022-02-04 07:22 | Inpatient (IN) ==
[2022-02-04] MEDS ORDERED: SODIUM CHLORIDE 0.9% 1000ML 1,000 ML IV SCH (08:00)
[2022-02-04 08:03] LABS: Basophils # (auto) 0.02 K/uL (0-0.2); Basophils % (auto) 0.3 %; Eosinophils # (auto) 0.35 K/uL (0-0.50); Hematocrit (blood only) 37.8 % (40.1-51.0); Hemoglobin 13.5 g/dl (14.0-18.0); Immature Granulocytes # (auto) 0.05 K/uL (0.00-0.02); Immature Granulocytes % (auto) 0.7 %; Lymphocytes # (auto) 0.85 K/uL (1.2-3.4); Lymphocytes % (auto) 12.2 %; Mean Corpuscular Hemoglobin 30.3 pg (25.0-34.0); Mean Corpuscular Hgb Conc 35.7 g/dL (32.0-36.0); Mean Corpuscular Volume 84.9 fL (80.0-100.0); Monocytes # (auto) 0.86 K/uL (0.24-0.82); Monocytes % (auto) 12.4 %; Neutrophils # (auto) 4.82 K/uL (1.4-6.5); Neutrophils % (auto) 69.4 %; Platelet Count 187 K/uL (130-400); RDW Coefficient of Variation 12.4 % (11.5-14.5); RDW Standard Deviation 38.5 fL (36.4-46.3); Red Blood Count 4.45 M/uL (4.63-6.08); White Blood Count 6.95 K/ul (4.8-10.8)
[2022-02-04 08:13] LABS: Albumin Globulin Ratio 1.8 (0.9-2); Albumin Level 4.1 gm/dl (3.4-5.0); BUN Creatinine Ratio 16.9 (10-20); Bilirubin,Total 0.8 mg/dl (0.2-1.0); Calcium 8.4 mg/dl (8.5-10.1); Creatinine Clr Calc Pharmacy 73.6 ml/min; Est GFR (African American) 99.2 ml/min; Est GFR (Non-African American) 85.6 ml/min; Globulin 2.3 gm/dl (2.5-4.0); Magnesium 2.1 mg/dl (1.7-2.4); Potassium 3.4 mmol/L (3.5-5.1); Total Protein 6.4 gm/dl (6.0-8.3)
[2022-02-04 08:19] LABS: Troponin I High Sensitivity 13.3 pg/ml (0-20)
--- NOTE | 2022-02-04 08:34 | XRay Report ---
SINGLE VIEW CHEST CLINICAL HISTORY: Generalized weakness. FINDINGS: An AP, portable, upright chest radiograph is compared to study dated 06/21/2010 and correlat ed with chest CT dated 12/22/2020. The patient is status post midline sternotomy. A 2-lead cardiac pa cemaker is unchanged in position and partially obscures the left mid chest. The heart is mildly enlar ged noting atherosclerotic calcification of the thoracic aorta. The pulmonary vasculature is not anya ested. Emphysema and chronic interstitial thickening is similar to previous. Scarring/atelectasis is noted at the lung bases. No airspace consolidation or large pleural effusion is identified. No pneumo thorax is seen. The skeletal structures are osteopenic. The bony thorax is grossly intact. Surgical a nchors are noted in the right humeral head. IMPRESSION: 1. Cardiomegaly and cardiac pacemaker. There is no radiographic evidence of congestive failure. 2. Emphysema. 3. No airspace consolidation or large pleural effusion is identified. ACT 112: Negative or not required by law. Electronically signed by: Mohinder Perez M.D. 02/04/2022 8:33 AM
[2022-02-04] MEDS ORDERED: SODIUM CHLORIDE 0.9% 1000ML 1,000 ML IV ONE (08:46)
--- NOTE | 2022-02-04 08:50 | History & Physical Report ---
Date of Service February 04, 2022 Assessment & Plan (1) Hyponatremia: Plan: Sodium 125 Hold thiazide diuretics, received IV NSS 1 liter, diarrhea may be contributing as well. Will obtain a biofire stool. check for c diff consulted nephro. (2) Influenza A: Plan: Patient started on tamiflu. Likely culprit of his falls. will admit to tele and keep him on heart monitor. May consider consult with cardio. (3) Fall: Plan: Patient falls likely secondary to porblem 2. will check orthostatic blood pressure (4) Hypertension: Plan: Blood pressure is above goal. will diuretics ordered amlodipine 2.5 mg PO BID to replace his thiazide diuretic Patient will remain on lisinopril (5) Weakness: Plan: secondary to problem 1. History of Present Illness Chief Complaint: falls Primary Care Provider: Georgiana Austin MD Mr. Butt is a pleasant 86 year old male. Patient is coming to the ED with a 2 week history of productive cough, shortness of breath and generalized malaise and weakness. Patient reports over course of this past week, he has been feeling dizzy and falling. He denies any loss of consciousness. Patient reports having 3 days of loose stools accompanied by poor oral intake. Patient is very anxious about his blood pressure medications being changed as he had issues 2 years ago. He was not able to elaborate, but just that his BP was uncontrolled for a long time after those changes were made. Reviewing his notes, he had falls at home after changes were made, though his BP did not appear to be low as per notes by PCP and Cardiology. In the ED, he was found to be hyponatremic, and given his falls, admission was called. After admission was ordered, patient was tested for influenza and this was positive. Allergies Allergy/AdvReac Type Severity Reaction Status Date / Time milk Allergy Mild Lactose Verified 01/07/22 14:17 intolerence-per pt gluten Allergy Unknown Nausea, Verified 01/07/22 14:17 stomach pain No Known Drug Allergies Allergy Unknown NONE Verified 01/07/22 14:17 Home Medications Medication Instructions Recorded Confirmed Type bimatoprost 0.01 % eye drops 1 drp OPB HS 11/08/18 02/04/22 History (Lumigan) dorzolamide 22.3 mg-timolol 6.8 1 drp OPL BID 11/08/18 02/04/22 History mg/mL eye drops cholecalciferol (vitamin D3) 50 2,000 units PO QAM 11/09/18 02/04/22 History mcg (2,000 unit) capsule mecobalamin (vitamin B12) 1,000 2,500 mcg sublingual PM 11/09/18 02/04/22 History mcg disintegrating tablet,sublingual aspirin 325 mg tablet,delayed 325 mg PO QAM 08/09/19 02/04/22 History release (Ecotrin) melatonin 5 mg PO HS 08/09/19 02/04/22 History multivitamin with iron 1 tab PO QAM 04/23/20 02/04/22 History ferrous sulfate 325 mg (65 mg 325 mg PO DAILY 08/18/20 02/04/22 History iron) tablet omega-3 fatty acids [Fish Oil] 1,000 mg PO DAILY 05/21/21 02/04/22 History ezetimibe 10 mg-simvastatin 80 mg 1 tab PO QPM #90 tabs 06/22/21 02/04/22 Rx tablet (Vytorin) triamterene 37.5 1 cap PO DAILY #90 caps 01/04/22 02/04/22 Rx mg-hydrochlorothiazide 25 mg capsule turmeric 1 cap PO DAILY 01/07/22 02/04/22 History vitamins A,C,H-qpdq-ymgyya 1 tab PO BID 01/07/22 02/04/22 History [PreserVision AREDS] lisinopril 40 mg tablet 40 mg PO DAILY #90 tabs 01/28/22 02/04/22 Rx omeprazole 20 mg capsule,delayed 20 mg PO BID 02/04/22 02/04/22 History release Past Med/Surg History Medical History CAD (coronary artery disease) Carotid artery stenosis GERD (gastroesophageal reflux disease) Glaucoma, bilateral Gluten intolerance History of colon cancer 2014 surgical intervention only for colon cancer HTN (hypertension), benign Hx of cardiac pacemaker Hyperlipidemia Lower extremity neuropathy Neuropathy (2009) Sinus arrest Surgical History History of abdominal aortic aneurysm repair x3 History of colon surgery 2014 surgical intervention only for colon cancer History of colonoscopy fiberoptic History of foot surgery History of hand surgery 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 Hx of heart bypass surgery x 2 vessel in 1995 failed stress test Hx of hernia repair double hernia repair Hx of shoulder surgery Arthroscopy with Rotator cuff repair Status post carotid surgery Thromboendarterectomy Family History Father Prostate cancer Myocardial infarction Heart disease Hypertension Mother Arthritis Cerebral artery occlusion Heart disease Hypertension Daughter Asthma Cancer of brain Breast cancer Brother Myocardial infarction Heart disease Hypertension Denies family history of Ovarian cancer Colorectal cancer Social History Smoking Status: Former smoker Age Started Using Tobacco: 17; Age Quit Using Tobacco: 63; Cigarettes Per Day: 20 cigarettes; Second Hand Exposure: No; Hx Alcohol Use: Yes Alcohol type: beer Alcohol Intake Frequency: 4 or More x per/Week Alcohol Intake Frequency Comment: One drink a day Hx Substance Use: No Preferred Language: Mohawk Communication Ability: Effective 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 Beliefs That Will Affect Care: None marital status: Current Living Situation: Spouse current occupational status: retired How many Children do You have: 2 Feels Safe at Home: Yes Childhood Exposure to Second-Hand Smoke: Yes caffeine: Yes (coffee) Dental Care, Regularly: Yes Physical Activity Frequency: Daily Seatbelt Use: sometimes Sunscreen Use: Yes Assistive Devices: Glasses and Hearing Aid - Bilateral Review of Systems Constitutional: + fatigue; no fever and no chills Eyes: no blind spots Ear, Nose, Mouth, Throat: no ear pain Respiratory: + cough and + dyspnea Cardiovascular: no chest pain Gastrointestinal: no abdominal pain Genitourinary: no dysuria Musculoskeletal: no back pain Integumentary: no acne and no rash Neurologic: + falls; no gait abnormality Psychiatric: no behavioral changes Endocrine: + fatigue Hematologic / Lymphatic: no easy bleeding Allergy / Immunological: no GI upset with certain foods Physical Exam Physical Exam: Constitutional: well developed and well nourished; no acute distress Respiratory: normal respiratory effort, lungs clear to auscultation Cardiovascular: RRR, no murmur, no edema Gastrointestinal (Abdomen): Inspection/Auscultation: abdomen normal to inspection and normal bowel sounds Percussion/Palpation: nontender/ soft, nondistended Musculoskeletal: no cyanosis or clubbing, extremities motor strength 5/5 Skin: no rashes, warm and dry Neurologic: CN's II-XI intact bilaterally, moves all extremities and awake; no focal motor deficits and not confused Speech / Cognition: normal speech Motor/Sensory: no tremor and no pronator drift Psychiatric: Orientation: alert and oriented x 3 Genitourinary: no CVA tenderness Results & Data Results & Data ([facility]) Vital Signs (Past 12 Hours) Vital Signs Temp Pulse Resp BP Pulse Ox O2 Del Method 02/04/22 08:43 94 Room Air 02/04/22 07:32 36.9 C 70 18 194/83 H 92 Room Air PG Care Time/CCT Total # of Minutes Spent Total Time Spent with Patient: Total time spent is greater than 50% in coordination of care (as documented) at patient's floor/unit and/or counseling patient: Coding Level of Care Code 05672 Initial Inpt Care Lvl 3 Diagnoses Hyponatremia E87.1 Influenza A J10.1 Fall W19.XXXA Hypertension I10 Weakness R53.1
--- NOTE | 2022-02-04 09:11 | Emergency Department Note ---
ED Visit Note I personally performed a history and examined the patient in conjunction with Dr. Pennington. Additional information regarding the history, physical, assessment, and plan were discussed with supervising attending physician and are noted in their ED visit note. Resident Activity Tracking Resident Involvement: Resident Care Provided Care Provided: Adult ED
[2022-02-04 09:22] LABS: Appearance Urine Clear (Clear); Bilirubin Urine Negative (Negative); Blood Urine Negative (Negative); Color Urine Yellow; Glucose Urine UA Negative (Negative); Ketones Urine Negative (Negative); Leukocyte Esterase Urine Negative (Negative); Nitrite Urine Negative (Negative); Protein Urine Negative (Negative); Specific Gravity Urine 1.009 (1.000-1.030); Urobilinogen Urine Negative (Negative)
[2022-02-04] MEDS ORDERED: COUGH DROP (SUGAR FREE) LOZ 24 LOZ/1 BOX BUCCAL STA ×2 (09:51→22:56)
--- NOTE | 2022-02-04 10:01 | Emergency Department Note ---
History of Present Illness General Chief complaint: Fall Stated complaint: FALL, WEAKNESS, LAC TO FOREHEAD, COLD SX Time Seen by Provider: 02/04/22 07:27 History of Present Illness Maximum Pain Intensity: 0 86-year-old male presents to the ED with a chief complaint of a fall. He has had some upper respiratory symptoms for the past couple of weeks. Decreased p.o. intake. Most recently 3 days of diarrhea. The patient states that yesterday morning he fell because he was feeling lightheaded and weak. He fell again this morning. He suffered an abrasion to his right elbow yesterday and an abrasion to his forehead this morning. There was some mild bleeding to the forehead. Home Medications Medication Instructions Recorded Confirmed Type bimatoprost 0.01 % eye drops 1 drp OPB HS 11/08/18 01/07/22 History dorzolamide 22.3 mg-timolol 6.8 1 drp OPL BID 11/08/18 01/07/22 History mg/mL eye drops cholecalciferol (vitamin D3) 50 2,000 units PO QAM 11/09/18 01/07/22 History mcg (2,000 unit) capsule mecobalamin (vitamin B12) 1,000 2,500 mcg sublingual PM 11/09/18 01/07/22 History mcg disintegrating tablet,sublingual psyllium seed (aspartame) oral 1.65 gm PO QAM 11/09/18 01/07/22 History powder (Natural Fiber Laxative (aspartame) oral powder) activated charcoal 200 mg capsule 400 mg PO DAILY PRN Nausea 08/09/19 01/07/22 History aspirin 325 mg tablet,delayed 325 mg PO QAM 08/09/19 01/07/22 History release (Ecotrin) melatonin 1 ea PO HS 08/09/19 01/07/22 History multivitamin with iron 1 tab PO QAM 04/23/20 01/07/22 History ferrous sulfate 325 mg (65 mg 325 mg PO DAILY 08/18/20 01/07/22 History iron) tablet diclofenac sodium 1 % topical gel 2 g topical QID #100 grams 12/15/20 01/07/22 Rx omega-3 fatty acids [Fish Oil] PO DAILY 05/21/21 01/07/22 History ezetimibe 10 mg-simvastatin 80 mg 1 tab PO QPM #90 tabs 06/22/21 01/07/22 Rx tablet (Vytorin) triamterene 37.5 1 cap PO DAILY #90 caps 01/04/22 01/07/22 Rx mg-hydrochlorothiazide 25 mg capsule turmeric PO DAILY 01/07/22 01/07/22 History vitamins A,C,R-rcvs-xwponv PO BID 01/07/22 01/07/22 History [PreserVision AREDS] azithromycin 250 mg tablet See Rx Instructions PO .COMPLEX #6 01/28/22 01/28/22 Rx tabs lisinopril 40 mg tablet 40 mg PO DAILY #90 tabs 01/28/22 01/28/22 Rx omeprazole 20 mg capsule,delayed 20 mg PO BID #180 caps 01/28/22 01/28/22 Rx release prednisone 20 mg tablet 40 mg PO QAM #10 tabs 01/28/22 01/28/22 Rx Allergies Allergy/AdvReac Type Severity Reaction Status Date / Time milk Allergy Mild Lactose Verified 01/07/22 14:17 intolerence-per pt gluten Allergy Unknown Nausea, Verified 01/07/22 14:17 stomach pain No Known Drug Allergies Allergy Unknown NONE Verified 01/07/22 14:17 Past Med/Surg History Medical History CAD (coronary artery disease) Carotid artery stenosis GERD (gastroesophageal reflux disease) Glaucoma, bilateral Gluten intolerance History of colon cancer 2014 surgical intervention only for colon cancer HTN (hypertension), benign Hx of cardiac pacemaker Hyperlipidemia Lower extremity neuropathy Neuropathy (2009) Sinus arrest Surgical History History of abdominal aortic aneurysm repair x3 History of colon surgery 2014 surgical intervention only for colon cancer History of colonoscopy fiberoptic History of foot surgery History of hand surgery 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 Hx of heart bypass surgery x 2 vessel in 1995 failed stress test Hx of hernia repair double hernia repair Hx of shoulder surgery Arthroscopy with Rotator cuff repair Status post carotid surgery Thromboendarterectomy Family History Father Prostate cancer Myocardial infarction Heart disease Hypertension Mother Arthritis Cerebral artery occlusion Heart disease Hypertension Daughter Asthma Cancer of brain Breast cancer Brother Myocardial infarction Heart disease Hypertension Denies family history of Ovarian cancer Colorectal cancer Social History Smoking Status: Former smoker Age Started Using Tobacco: 17; Age Quit Using Tobacco: 63; Cigarettes Per Day: 20 cigarettes; Second Hand Exposure: No; Hx Alcohol Use: Yes Alcohol type: beer Alcohol Intake Frequency: 4 or More x per/Week Alcohol Intake Frequency Comment: One drink a day Hx Substance Use: No Preferred Language: Polish Communication Ability: Effective 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 Beliefs That Will Affect Care: None marital status: Current Living Situation: Spouse current occupational status: retired How many Children do You have: 2 Feels Safe at Home: Yes Childhood Exposure to Second-Hand Smoke: Yes caffeine: Yes (coffee) Dental Care, Regularly: Yes Physical Activity Frequency: Daily Seatbelt Use: sometimes Sunscreen Use: Yes Assistive Devices: Denture - Upper, Denture - Lower, Glasses and Hearing Aid - Right Review of Systems A total of 10 systems reviewed and were otherwise negative Physical Exam Vital Signs Vital Signs - 24 hr 02/04/22 07:32 02/04/22 08:43 Temperature 36.9 C Temperature Source Oral Pulse Rate 70 Respiratory Rate 18 Blood Pressure 194/83 H Blood Pressure Mean 120 Pulse Oximetry 92 94 Oxygen Delivery Method Room Air Room Air Sepsis Recent Fever Within 48 Hours No Sepsis New/Unexplained Change in Mental Status No Sepsis Action Taken by Nursing No Action Required CONSTITUTIONAL/VITAL SIGNS: Reviewed / noted above. GENERAL: Non-toxic in appearance. INTEGUMENTARY: Warm, dry, and [place]. HEAD: Normocephalic. Abrasion on the right forehead with minimal bleeding. EYES: without scleral icterus or trauma. ENT/OROPHARYNX: clear and moist. LYMPHADENOPATHY/NECK: Is supple without lymphadenopathy or meningismus. RESPIRATORY: Clear to auscultation bilaterally. No increased work of breathing. CARDIOVASCULAR: Regular rate and rhythm. GI/ABDOMEN: Soft and nontender. No organomegaly or pulsatile mass. EXTREMITIES: Warm and well perfused. Abrasion on the right elbow. BACK: No CVA tenderness. NEUROLOGICAL: Intact without focal deficits. PSYCHIATRIC: normal affect. MUSCULOSKELETAL: Normally developed with good muscle tone. TRIAGE NURSING DOCUMENTATION REVIEWED. Course Administered Medications Discontinued Medications Sodium Chloride (Nss 1000ml) 1,000 mls @ 999 mls/hr IV .Q1H1M SOFIYA Stop: 02/04/22 09:00 Last Infusion: 02/04/22 09:48 Dose: 0 mls/hr Documented By: Admin: 02/04/22 08:39 Dose: 999 mls/hr Documented By: JIGAR Sodium Chloride (Nss 1000ml) 1,000 mls @ 999 mls/hr IV .Q1H1M ONE Stop: 02/04/22 09:46 Last Admin: 02/04/22 09:47 Dose: 999 mls/hr Documented By: NETTE Medical Decision Making Differential Diagnosis Differential includes acute coronary syndrome, myocardial infarction, CVA, TIA, anemia, infection, pneumonia, UTI, pyelonephritis, poor nutrition, dehydration, electrolyte disturbance,hypoglycemia. Medical Records Attestation: I reviewed the patient's medical records. Home Medications Current Medication List: was personally reviewed by me Laboratory Data Attestation: I reviewed the patient's lab results. Result diagrams: 02/04/22 Unknown 02/04/22 Unknown Lab Results 02/04/22 02/04/22 02/04/22 Range/Units 08:23 Unknown Unknown WBC 6.95 (4.8-10.8) K/ul RBC 4.45 L (4.63-6.08) M/uL Hgb 13.5 L (14.0-18.0) g/dl Hct 37.8 L (40.1-51.0) % MCV 84.9 (80.0-100.0) fL MCH 30.3 (25.0-34.0) pg MCHC 35.7 (32.0-36.0) g/dL RDW Std Deviation 38.5 (36.4-46.3) fL RDW Coeff of Citlaly 12.4 (11.5-14.5) % Plt Count 187 (130-400) K/uL MPV 10.0 (9.4-12.4) fL Immature Gran % (Auto) 0.7 % Neut % (Auto) 69.4 % Lymph % (Auto) 12.2 % Chaves % (Auto) 12.4 % Eos % (Auto) 5.0 % Baso % (Auto) 0.3 % Neut # (Auto) 4.82 (1.4-6.5) K/uL Lymph # (Auto) 0.85 L (1.2-3.4) K/uL Chaves # (Auto) 0.86 H (0.24-0.82) K/uL Eos # (Auto) 0.35 (0-0.50) K/uL Baso # (Auto) 0.02 (0-0.2) K/uL Immature Gran # (Auto) 0.05 H (0.00-0.02) K/uL Sodium 125 L (136-145) mmol/L Potassium 3.4 L (3.5-5.1) mmol/L Chloride 90 L (98-107) mmol/L Carbon Dioxide 26 (21-32) mmol/L Anion Gap 9 (3-11) BUN 12 (6-23) mg/dl Creatinine 0.71 (0.6-1.4) mg/dl Est Cr Clr Drug Dosing 73.6 ml/min Est GFR ( Amer) 99.2 ml/min Est GFR (Non-Af Amer) 85.6 ml/min BUN/Creatinine Ratio 16.9 (10-20) Glucose 111 H (70-99(Fasting)) mg/dl Lactate 1.4 (0.4-2.0) mmol/L Calcium 8.4 L (8.5-10.1) mg/dl Magnesium 2.1 (1.7-2.4) mg/dl Total Bilirubin 0.8 (0.2-1.0) mg/dl AST 28 (13-39) U/L ALT 22 (7-52) U/L Alkaline Phosphatase 74 (34-104) U/L Total Creatine Kinase 158 (30-223) U/L Troponin I High Sens 13.3 (0-20) pg/ml Total Protein 6.4 (6.0-8.3) gm/dl Albumin 4.1 (3.4-5.0) gm/dl Globulin 2.3 L (2.5-4.0) gm/dl Albumin/Globulin Ratio 1.8 (0.9-2) TSH (0.300-4.500) uIu/ml Urine Color Urine Appearance (Clear) Urine pH (4.5-7.5) Ur Specific [place] (1.000-1.030) Urine Protein (Negative) Urine Glucose (UA) (Negative) Urine Ketones (Negative) Urine Blood (Negative) Urine Nitrite (Negative) Urine Bilirubin (Negative) Urine Urobilinogen (Negative) Ur Leukocyte Esterase (Negative) 02/04/22 02/04/22 Range/Units Unknown Unknown WBC (4.8-10.8) K/ul RBC (4.63-6.08) M/uL Hgb (14.0-18.0) g/dl Hct (40.1-51.0) % MCV (80.0-100.0) fL MCH (25.0-34.0) pg MCHC (32.0-36.0) g/dL RDW Std Deviation (36.4-46.3) fL RDW Coeff of Citlaly (11.5-14.5) % Plt Count (130-400) K/uL MPV (9.4-12.4) fL Immature Gran % (Auto) % Neut % (Auto) % Lymph % (Auto) % Chaves % (Auto) % Eos % (Auto) % Baso % (Auto) % Neut # (Auto) (1.4-6.5) K/uL Lymph # (Auto) (1.2-3.4) K/uL Chaves # (Auto) (0.24-0.82) K/uL Eos # (Auto) (0-0.50) K/uL Baso # (Auto) (0-0.2) K/uL Immature Gran # (Auto) (0.00-0.02) K/uL Sodium (136-145) mmol/L Potassium (3.5-5.1) mmol/L Chloride (98-107) mmol/L Carbon Dioxide (21-32) mmol/L Anion Gap (3-11) BUN (6-23) mg/dl Creatinine (0.6-1.4) mg/dl Est Cr Clr Drug Dosing ml/min Est GFR ( Amer) ml/min Est GFR (Non-Af Amer) ml/min BUN/Creatinine Ratio (10-20) Glucose (70-99(Fasting)) mg/dl Lactate (0.4-2.0) mmol/L Calcium (8.5-10.1) mg/dl Magnesium (1.7-2.4) mg/dl Total Bilirubin (0.2-1.0) mg/dl AST (13-39) U/L ALT (7-52) U/L Alkaline Phosphatase (34-104) U/L Total Creatine Kinase (30-223) U/L Troponin I High Sens (0-20) pg/ml Total Protein (6.0-8.3) gm/dl Albumin (3.4-5.0) gm/dl Globulin (2.5-4.0) gm/dl Albumin/Globulin Ratio (0.9-2) TSH 0.693 (0.300-4.500) uIu/ml Urine Color Yellow Urine Appearance Clear (Clear) Urine pH 8.0 H (4.5-7.5) Ur Specific [place] 1.009 (1.000-1.030) Urine Protein Negative (Negative) Urine Glucose (UA) Negative (Negative) Urine Ketones Negative (Negative) Urine Blood Negative (Negative) Urine Nitrite Negative (Negative) Urine Bilirubin Negative (Negative) Urine Urobilinogen Negative (Negative) Ur Leukocyte Esterase Negative (Negative) Imaging Data My Impression: Chest x-ray: Per my interpretation that the radiologist, there is no acute disease. Radiologist's Impression: Chest X-Ray 02/04/22 07:28 SINGLE VIEW CHEST CLINICAL HISTORY: Generalized weakness. FINDINGS: An AP, portable, upright chest radiograph is compared to study dated 06/21/2010 and correlated with chest CT dated 12/22/2020. The patient is status post midline sternotomy. A 2-lead cardiac pacemaker is unchanged in position and partially obscures the left mid chest. The heart is mildly enlarged noting atherosclerotic calcification of the thoracic aorta. The pulmonary vasculature is not congested. Emphysema and chronic interstitial thickening is similar to previous. Scarring/atelectasis is noted at the lung bases. No airspace consolidation or large pleural effusion is identified. No pneumothorax is seen. The skeletal structures are osteopenic. The bony thorax is grossly intact. Surgical anchors are noted in the right humeral head. IMPRESSION: 1. Cardiomegaly and cardiac pacemaker. There is no radiographic evidence of congestive failure. 2. Emphysema. 3. No airspace consolidation or large pleural effusion is identified. ACT 112: Negative or not required by law. Electronically signed by: Mohinder Perez M.D. 02/04/2022 8:33 AM ECG Data Attestation: I personally reviewed and interpreted this ECG as follows: Additional Comments: Twelve-lead EKG: Per my interpretation there is a sinus rhythm at a rate of [address] elevation. No PVCs. Normal QTC. MDM Narrative Patient presents with a fall for the second day in a row. Suffered an abrasion to the elbow yesterday and a abrasion to the forehead today. Has had some generalized weakness related to recent upper respiratory infection, decreased p.o. intake and recent diarrhea. His sodium is low 125. CBC was unremarkable. Chemistry panel was unremarkable. Troponin was negative. Chest x-ray was negative for acute disease. Lactic acid was negative. Because the patient's falls and weakness as well as low sodium, he will be seen by the hospitalist for further evaluation and care. Impression & Plan Fall, Acute hyponatremia, Weakness Discharge Plan Visit Data Chief Complaint: Fall Stated Complaint: FALL, WEAKNESS, LAC TO FOREHEAD, COLD SX ED Provider: Robert Pennington Discharge Problem: Fall, Acute hyponatremia, Weakness Patient Disposition: Being Evaluated by Hospitalist Forms Stand Alone Forms: My [facility] Prescriptions Prescriptions: No Action ezetimibe-simvastatin [Vytorin 10-80] 10-80 mg tablet 1 tab PO QPM Qty: 90 3RF triamterene-hydrochlorothiazid 37.5-25 mg capsule 1 cap PO DAILY Qty: 90 3RF Natural Fiber Laxative(aspart) powder 1.65 gm PO QAM mecobalamin (vitamin B12) 1,000 mcg tablet,disintegrating 2,500 mcg SL PM cholecalciferol (vitamin D3) 2,000 unit capsule 2,000 units PO QAM ferrous sulfate 325 mg (65 mg iron) tablet 325 mg PO DAILY omega-3 fatty acids [Fish Oil] PO DAILY aspirin [Ecotrin] 325 mg tablet,delayed release (DR/EC) 325 mg PO QAM activated charcoal 200 mg capsule 400 mg PO DAILY PRN (Reason: Nausea) melatonin 1 ea PO HS diclofenac sodium 1 % gel 2 g topical QID Qty: 100 5RF Rx Instructions: apply to single elbow, wrist or hand; for hand includes palm/fingers/back of hand vitamins A,C,F-pfkz-rrdapu [PreserVision AREDS] PO BID turmeric PO DAILY dorzolamide-timolol 22.3-6.8 mg/mL drops 1 drp OPL BID bimatoprost 0.01 % drops 1 drp OPB HS omeprazole 20 mg capsule,delayed release(DR/EC) 20 mg PO BID Qty: 180 3RF azithromycin 250 mg tablet See Rx Instructions PO .COMPLEX Qty: 6 0RF Rx Instructions: take 500 mg today (day 1), then 250 mg for 4 days (days 2-5) lisinopril 40 mg tablet 40 mg PO DAILY Qty: 90 3RF prednisone 20 mg tablet 40 mg PO QAM Qty: 10 0RF multivitamin with iron Tablet 1 tab PO QAM Referrals Referrals: Georgiana Austin MD [Primary Care Provider] -
[2022-02-04 10:02] LABS: Influenza B virus by PCR Negative (Neg); RSV by PCR Negative (Neg); SARS CoV2 RNA(COVID-19) Ceph NEGATIVE (Negative)
[2022-02-04 10:20] LABS: Influenza A virus by PCR Positive (Neg)
[2022-02-04] MEDS: PANTOprazole 40 MG TAB PO SCH ×2 (11:28→23:06)
[2022-02-04] MEDS: MULTIVITAMIN TAB PO SCH (11:28)
[2022-02-04] MEDS: CHOLECALCIFEROL 1,000 UNITS 25 MCG TAB PO SCH (11:29)
[2022-02-04] MEDS: FERROUS SULFATE 325 MG TAB PO SCH (11:30)
[2022-02-04] MEDS: ENOXAPARIN INJ 40 MG/0.4 ML SYR SQ SCH (11:30)
[2022-02-04] MEDS: DORZOLAMIDE/TIMOLOL 22.3/6.8MG/ML 10 ML BTL OPL SCH ×2 (11:31→19:55)
[2022-02-04] MEDS: lisinopril 40 MG TAB PO SCH (11:31)
[2022-02-04] MEDS: ASPIRIN 325 MG ECTAB PO SCH (11:32)
[2022-02-04] MEDS ORDERED: SODIUM CHLORIDE 1 GM TABLET PO ONE (12:12)
[2022-02-04] MEDS ORDERED: amLODIPine BESYLATE 5 MG TAB PO SCH (12:15)
--- NOTE | 2022-02-04 12:36 | Nephrology Consultation ---
Date of Consultation February 04, 2022 Assessment & Plan (1) Hyponatremia: * Hyponatremia due to several factors including thiazide diuretic therapy in the setting of acute Influenza A infection * Hold Triamterene-HCTZ * 1 L 0.9 NS administered in EMD * Neurologically intact to my exam. Suspect falls related to weakness associated w/ Influenza. Hyponatremia is relatively mild * Will provide 2g NaCl po x1 this afternoon. I do not feel that 3% NaCl or Tolvaptan is needed at this time * Will order follow up PRP at 4 pm and urine osmolality * Monitor PRP (2) Influenza A: * Consider Oseltamivir therapy (3) Hypertension: * Long standing poorly controlled HTN * Avoid thiazide diuretics due to h/o hyponatremia (Na 125 - 130 mmol/L since 2019) * Continue Lisinopril as Cr is stable and electrolytes remain acceptable * Will start Amlodipine 2.5 mg BID to improve BP control History of Present Illness Reason for Consultation: Hyponatremia History of Present Illness Mr. Butt is an 86 year old white male who is seen at the request of the hospitalist service for evaluation of hyponatremia. Medical records in the EMR were reviewed today and are summarized as follows: Mr. Butt has a long standing history of poorly controlled HTN. His BP has been treated w/ Lisinopril and Triamterene-HCTZ. He reports that in 2019 after starting thiazide diuretic therapy he developed mild hyponatremia w/ serum sodium 125 - 130 mmol/L. He was advised at that time to drink Gatorade and reports that his sodium has remained slightly low but stable. Mr. Butt was admitted to the [facility] this morning after suffering several falls at home. He has been very weak and has tested + for Influenza A. Seum sodium at the time of admission was 125 mmol/L. 1 L 0.9 NS was administered by [facility] physician. Mr. Butt is currently A&O x3. He follows commands appropriately and has no focal neurologic deficit. He indicates that he is able to take oral medications PMH: colon CA s/p R hemicolectomy 02/17, HTN, hyperlipidemia, ASCVD s/p CABG 1995, sinus arrest requiring pacemaker, PVD s/p R CEA 12/12, PVD s/p AAA repair w/ aortobifemoral bypass 2009 Allergies Allergy/AdvReac Type Severity Reaction Status Date / Time milk Allergy Mild Lactose Verified 01/07/22 14:17 intolerence-per pt gluten Allergy Unknown Nausea, Verified 01/07/22 14:17 stomach pain No Known Drug Allergies Allergy Unknown NONE Verified 01/07/22 14:17 Home Medications Medication Instructions Recorded Confirmed Type bimatoprost 0.01 % eye drops 1 drp OPB HS 11/08/18 02/04/22 History (Lumigan) dorzolamide 22.3 mg-timolol 6.8 1 drp OPL BID 11/08/18 02/04/22 History mg/mL eye drops cholecalciferol (vitamin D3) 50 2,000 units PO QAM 11/09/18 02/04/22 History mcg (2,000 unit) capsule mecobalamin (vitamin B12) 1,000 2,500 mcg sublingual PM 11/09/18 02/04/22 History mcg disintegrating tablet,sublingual aspirin 325 mg tablet,delayed 325 mg PO QAM 08/09/19 02/04/22 History release (Ecotrin) melatonin 5 mg PO HS 08/09/19 02/04/22 History multivitamin with iron 1 tab PO QAM 04/23/20 02/04/22 History ferrous sulfate 325 mg (65 mg 325 mg PO DAILY 08/18/20 02/04/22 History iron) tablet omega-3 fatty acids [Fish Oil] 1,000 mg PO DAILY 05/21/21 02/04/22 History ezetimibe 10 mg-simvastatin 80 mg 1 tab PO QPM #90 tabs 06/22/21 02/04/22 Rx tablet (Vytorin) triamterene 37.5 1 cap PO DAILY #90 caps 01/04/22 02/04/22 Rx mg-hydrochlorothiazide 25 mg capsule turmeric 1 cap PO DAILY 01/07/22 02/04/22 History vitamins A,C,R-pdoi-qjgvbr 1 tab PO BID 01/07/22 02/04/22 History [PreserVision AREDS] lisinopril 40 mg tablet 40 mg PO DAILY #90 tabs 01/28/22 02/04/22 Rx omeprazole 20 mg capsule,delayed 20 mg PO BID 02/04/22 02/04/22 History release Patient History Medical History CAD (coronary artery disease) Carotid artery stenosis GERD (gastroesophageal reflux disease) Glaucoma, bilateral Gluten intolerance History of colon cancer 2014 surgical intervention only for colon cancer HTN (hypertension), benign Hx of cardiac pacemaker Hyperlipidemia Lower extremity neuropathy Neuropathy (2009) Sinus arrest Surgical History History of abdominal aortic aneurysm repair x3 History of colon surgery 2014 surgical intervention only for colon cancer History of colonoscopy fiberoptic History of foot surgery History of hand surgery 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 Hx of heart bypass surgery x 2 vessel in 1995 failed stress test Hx of hernia repair double hernia repair Hx of shoulder surgery Arthroscopy with Rotator cuff repair Status post carotid surgery Thromboendarterectomy Family History Father Prostate cancer Myocardial infarction Heart disease Hypertension Mother Arthritis Cerebral artery occlusion Heart disease Hypertension Daughter Asthma Cancer of brain Breast cancer Brother Myocardial infarction Heart disease Hypertension Denies family history of Ovarian cancer Colorectal cancer Social History Smoking Status: Former smoker Age Started Using Tobacco: 17; Age Quit Using Tobacco: 63; Cigarettes Per Day: 20 cigarettes; Second Hand Exposure: No; Hx Alcohol Use: Yes Alcohol type: beer Alcohol Intake Frequency: 4 or More x per/Week Alcohol Intake Frequency Comment: One drink a day Hx Substance Use: No Preferred Language: Turkish Communication Ability: Effective 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 Beliefs That Will Affect Care: None marital status: Current Living Situation: Spouse current occupational status: retired How many Children do You have: 2 Feels Safe at Home: Yes Childhood Exposure to Second-Hand Smoke: Yes caffeine: Yes (coffee) Dental Care, Regularly: Yes Physical Activity Frequency: Daily Seatbelt Use: sometimes Sunscreen Use: Yes Assistive Devices: Denture - Upper, Denture - Lower, Glasses and Hearing Aid - Right Review of Systems Constitutional: + body aches and + weakness; no fever Eyes: no problem reported Ear, Nose, Mouth, Throat: no problem reported Respiratory: no dyspnea Cardiovascular: no chest pain Gastrointestinal: + diarrhea/loose stools Neurologic: + falls Physical Exam Constitutional: no acute distress Eyes: PERRL, conjunctivae normal, anicteric sclerae ENMT: external ear and nose normal, oropharynx normal Neck: trachea midline, no thyromegaly Respiratory: normal respiratory effort, lungs clear to auscultation Cardiovascular: RRR, no murmur, no edema Gastrointestinal (Abdomen): normal bowel sounds, soft, nontender, no hepatosplenomegaly Neurologic: Speech / Cognition: normal speech and normal cognition Results & Data ([facility]) Vital Signs (Past 12 Hours) Vital Signs Temp Pulse Pulse Resp BP BP Pulse Ox 02/04/22 09:29 66 14 194/83 H 95 02/04/22 08:43 94 02/04/22 07:32 36.9 C 70 18 194/83 H 92 O2 Del Method 02/04/22 09:29 Room Air 02/04/22 08:43 Room Air 02/04/22 07:32 Room Air Laboratory Results Laboratory Tests 01/24/22 02/04/22 02/04/22 07:49 Unknown Unknown Sodium 132 L 125 L Potassium 3.4 L Chloride 90 L Carbon Dioxide 26 BUN 12 Creatinine 0.71 Albumin 4.1 TSH 0.693 SARS-CoV-2 (PCR) Influenza Type A (PCR) Influenza Type B (PCR) RSV (RT-PCR) 02/04/22 Unknown Sodium Potassium Chloride Carbon Dioxide BUN Creatinine Albumin TSH SARS-CoV-2 (PCR) NEGATIVE Influenza Type A (PCR) Positive A* Influenza Type B (PCR) Negative RSV (RT-PCR) Negative PG Care Time/CCT Total # of Minutes Spent Total Time Spent with Patient: Total time spent is greater than 50% in coordination of care (as documented) at patient's floor/unit and/or counseling patient: Coding Level of Care Code 58152 Inpt Consult Level 5 Diagnoses Hyponatremia E87.1 Influenza A J10.1 Hypertension I10
--- NOTE | 2022-02-04 13:04 | Electrocardiogram Report ---
Test Reason : Blood Pressure : / mmHG Vent. Rate : 071 BPM Atrial Rate : 071 BPM P-R Int : 184 ms QRS Dur : 100 ms QT Int : 402 ms P-R-T Axes : 083 098 059 degrees QTc Int : 436 ms Sinus rhythm with Premature atrial complexes Lateral infarct (cited on or before 23-APR-2020) Abnormal ECG When compared with ECG of 23-JUN-2020 14:59, Premature atrial complexes are now Present Confirmed by Mahad Sorensen ([id number]) on 02/04/2022 1:04:02 PM Referred By: SELF Confirmed By:Fabricio Sorensen
[2022-02-04] MEDS: DICLOFENAC SOD 1% GEL 100 GM TUBE EXT SCH ×4 (13:09→23:07)
[2022-02-04] MEDS: PSYLLIUM or GUAR GUM FIBER POWDER PACKET PO SCH (13:16)
[2022-02-04] MEDS ORDERED: OSELTAMIVIR PHOSPHATE 75 MG CAP PO STA (13:40)
[2022-02-04 16:41] LABS: BUN Creatinine Ratio 12.8 (10-20); Calcium 8.2 mg/dl (8.5-10.1); Est GFR (African American) 95.4 ml/min; Est GFR (Non-African American) 82.3 ml/min; Potassium 3.7 mmol/L (3.5-5.1)
[2022-02-04] MEDS ORDERED: EZETIMIBE/SIMVASTATIN 10/80MG TAB PO SCH (21:00)
[2022-02-04] MEDS: amLODIPine BESYLATE 5 MG TAB PO SCH (22:58)
[2022-02-04] MEDS: BIMATOPROST 0.01% OP SOLN 2.5 ML BTL OP SCH (23:05)
[2022-02-04] MEDS: EZETIMIBE 10 MG TABLET PO SCH (23:06)
[2022-02-04] MEDS: CYANOCOBALAMIN (B-12) 2,500 MCG TABLET SL SCH (23:06)
[2022-02-04] MEDS: SIMVASTATIN 80 MG TAB PO SCH (23:06)
[2022-02-04] MEDS: OSELTAMIVIR PHOSPHATE 75 MG CAP PO SCH (23:07)
[2022-02-05 06:53] LABS: Creatinine Clr Calc Pharmacy 67.9 ml/min; Est GFR (African American) 95.9 ml/min; Est GFR (Non-African American) 82.7 ml/min; Potassium 3.5 mmol/L (3.5-5.1)
[2022-02-05] MEDS: OSELTAMIVIR PHOSPHATE 75 MG CAP PO SCH ×2 (08:12→22:59)
[2022-02-05] MEDS: PANTOprazole 40 MG TAB PO SCH ×2 (08:13→22:59)
[2022-02-05] MEDS: DICLOFENAC SOD 1% GEL 100 GM TUBE EXT SCH ×4 (08:13→18:57)
[2022-02-05] MEDS: FERROUS SULFATE 325 MG TAB PO SCH (08:14)
[2022-02-05] MEDS: ENOXAPARIN INJ 40 MG/0.4 ML SYR SQ SCH (08:14)
[2022-02-05] MEDS: ASPIRIN 325 MG ECTAB PO SCH (08:15)
[2022-02-05] MEDS: CHOLECALCIFEROL 1,000 UNITS 25 MCG TAB PO SCH (08:15)
[2022-02-05] MEDS: DORZOLAMIDE/TIMOLOL 22.3/6.8MG/ML 10 ML BTL OPL SCH ×2 (08:15→22:58)
[2022-02-05] MEDS: PSYLLIUM or GUAR GUM FIBER POWDER PACKET PO SCH (08:16)
[2022-02-05] MEDS: MULTIVITAMIN TAB PO SCH (08:16)
[2022-02-05] MEDS: lisinopril 40 MG TAB PO SCH (08:18)
[2022-02-05] MEDS: amLODIPine BESYLATE 5 MG TAB PO SCH ×2 (08:18→22:55)
[2022-02-05] MEDS ORDERED: amLODIPine BESYLATE 5 MG TAB PO SCH (10:07)
[2022-02-05] MEDS ORDERED: LIDOCAINE 1%/EPINEPHRINE 1:100,000 50 ML VIAL INFIL ONE (12:14)
--- NOTE | 2022-02-05 12:39 | Nephrology Progress Note ---
Date of Service February 05, 2022 Assessment & Plan (1) Hyponatremia: Plan: * Hyponatremia due to several factors including thiazide diuretic therapy in the setting of acute Influenza A infection * Hold Triamterene-HCTZ * Volume status acceptable * Sodium improved * Urine osmolality not significantly elevated * Will continue to hold HCTZ today, as tolerated * Will order follow up PRP tomorrow AM (2) Influenza A: Plan: * Clinically improving (3) Hypertension: Plan: * Long standing poorly controlled HTN * I would generally advoid thiazide diuretics due to h/o hyponatremia (Na 125 - 130 mmol/L since 2019). However, Troy feels strongly that this has been reasonably well tolerated and BP otherwise difficult to manage. 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 * Continue Lisinopril as Cr is stable and electrolytes remain acceptable * Troy refused amlodipine Admission and Anticipated Discharge Date Admission Date: February 04, 2022 Subjective No acute events overnight. No complaints this AM. Troy was seen and evaluated with his and daughter at the bedside. Troy was out of bed to chair. Overall, he feels well. No GI symptoms reported today. Denies any symptoms associated with elevated BP. No fluid retention or edema. Troy refuses amlodipine. Lisinopril + HCTZ has been well tolerated despite chronic mild hyponatremia. Recent worsening of hyponatremia attributed to increased free water intake and salt loss associated with diarrhea. Prior attempts to adjust therapy have not gone well. He notes that his blood pressure is always high when he is in the hospital and he is confident that it will improve once he returns home. Review of Systems Review of Systems: All systems reviewed & are unremarkable except as noted in HPI & below Physical Exam Constitutional: well developed; no acute distress Eyes: + anicteric sclerae; no corneal abnormality ENMT: Mouth: no oral mucosal abnormality and oral mucous membranes not dry Neck: normal visual inspection and trachea midline Respiratory: normal respiratory effort Auscultation: lungs clear to auscultation bilaterally Cardiovascular: Rate/Rhythm: regular rate Heart Sounds: normal S1 and normal S2 Extremities: + pedal edema and + varicosities Musculoskeletal: Extremities: + amputation noted (digits on right hand); no cyanosis and no clubbing Skin: normal turgor; no lesions Neurologic: Motor/Sensory: no tremor and no asterixis Psychiatric: Orientation: alert and oriented x 3 Results & Data ([facility]) Vital Signs (Past 12 Hours) Vital Signs Temp Pulse Resp BP Pulse Ox O2 Del Method 02/05/22 11:44 36.5 C 72 20 184/86 H 95 Room Air 02/05/22 06:57 36.6 C 70 18 169/77 H 94 Room Air 02/05/22 02:36 36.9 C 82 16 193/74 H 95 Room Air Laboratory Results Laboratory Results - last 24 hr 02/04/22 02/04/22 02/05/22 13:20 16:01 05:23 Sodium 131 L 131 L Potassium 3.7 3.5 Chloride 97 L 98 Carbon Dioxide 26 27 Anion Gap 8 6 BUN 10 10 Creatinine 0.78 0.77 Est Cr Clr Drug Dosing 67.0 67.9 Est GFR ( Amer) 95.4 95.9 Est GFR (Non-Af Amer) 82.3 82.7 BUN/Creatinine Ratio 12.8 13.0 Glucose 100 H 95 Osmolality Calcium 8.2 L 8.0 L Urine Osmolality 150 L 02/05/22 10:28 Sodium Potassium Chloride Carbon Dioxide Anion Gap BUN Creatinine Est Cr Clr Drug Dosing Est GFR ( Amer) Est GFR (Non-Af Amer) BUN/Creatinine Ratio Glucose Osmolality 260 L Calcium Urine Osmolality PG Care Time/CCT Total # of Minutes Spent Total Time Spent with Patient: Total time spent is greater than 50% in coordination of care (as documented) at patient's floor/unit and/or counseling patient: Coding Level of Care Code 43951 Subseq Hosp Care Lvl 3 Diagnoses Hyponatremia E87.1 Influenza A J10.1 Hypertension I10
--- NOTE | 2022-02-05 14:39 | Hospitalist Progress Note ---
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 Fluid restriction started. Sodium improved to 131. Nephrology consultation and recommendations appreciated (2) Influenza A: Plan: Continue Tamiflu for a 5-day treatment course. Supportive care (3) Fall: Plan: Patient falls likely secondary to above. OT and PT assessments requested. Supportive care (4) Hypertension: Plan: Blood pressure is labile but he refuses any adjustment of his blood pressure medications. (5) Weakness: Plan: Continue OT and PT. Treat underlying influenza (6) Scalp laceration: Plan: Right frontal temporal area. Recurrent bleeding. Occurred when he stumbled in his bathroom. No overt syncope according to his . General surgery consulted for laceration repair. Plan Hopeful discharge to home tomorrow, February 06 Admission and Anticipated Discharge Date Admission Date: February 04, 2022 Subjective Alert and oriented. Family is at the bedside. Recurrent bleeding from the right temporal scalp laceration which will need attention by general surgery. Probably a suture or 2. 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 Fluid restriction started. Hydrochlorothiazide is on hold. Appreciate nephrology consultation and recommendations. He remains on Tamiflu. Hopefully he can go home tomorrow, February 06 Review of Systems Review of Systems: Constitutional-no fever or chills ENT-no blurred vision, no double vision, no epistaxis, no sore throat Respiratory-no cough, no wheezing, no shortness of breath Cardiac-no palpitations, no chest pain, no syncope GI-no nausea, vomiting, diarrhea, melena, hematochezia -no urinary retention, no urinary incontinence, no dysuria, no hematuria Musculoskeletal-no joint pain, no muscle tenderness Skin-recurrent bleeding from the right frontotemporal skin laceration Neuro-no isolated weakness, no paresthesia, no weakness Psych-no depression, no anxiety Physical Exam Physical Exam: General-alert and oriented x3, no fevers, no chills HEENT-head atraumatic and normocephalic except for right frontotemporal skin laceration, pupils equal and reactive to light, extraocular muscles intact Neck-no lymphadenopathy or thyromegaly, trachea midline Chest-clear to auscultation percussion. No rales wheezing or rhonchi Cardiac-regular rate and rhythm, normal S1 and S2 Abdomen-normal bowel sounds, nontender, no hepatosplenomegaly Extremities-no cyanosis, clubbing, or edema Neuro-cranial nerves II through XII intact, motor and sensory function within n ormal limits, strength symmetrical , no focal deficits Psych-normal affect, normal mood Results & Data Results & Data ([facility]) Vital Signs (Past 12 Hours) Vital Signs Temp Pulse Resp BP Pulse Ox O2 Del Method 02/05/22 11:44 36.5 C 72 20 184/86 H 95 Room Air 02/05/22 06:57 36.6 C 70 18 169/77 H 94 Room Air 02/05/22 02:36 36.9 C 82 16 193/74 H 95 Room Air Laboratory Results 02/04/22 Unknown 02/05/22 05:23 PG Care Time/CCT Total # of Minutes Spent Total Time Spent with Patient: Total time spent is greater than 50% in coordination of care (as documented) at patient's floor/unit and/or counseling patient: Coding Level of Care Code 31669 Subseq Hosp Care Lvl 3 Diagnoses Hyponatremia E87.1 Influenza A J10.1 Fall W19.XXXA Hypertension I10 Weakness R53.1 Scalp laceration S01.01XA
--- NOTE | 2022-02-05 14:51 | Operative Report ---
Post Operative Report Pre & Post Diagnosis bleeding laceration right forehead I identified the patient and participated in the time-out.: Yes Procedure suture repair of 1.3 cm laceration right forehead Surgeon Henna Thornton MD Ultrasound Supervisor none Estimated Blood Loss 0 Findings Consistent with Post-Op Diagnosis no further bleeding, two sutures placed Specimens none Anesthesia Type Local Complications none Disposition Accompanied Patient To Recovery: No Indications 86 yr old man s/p recent fall with continued bleeding from right forehead laceration. Consented for suture at the bedside. Description of Procedure The right forehead laceration was cleaned with betadine. 4 cc of 1% lidocaine with epi were used to numb the wound after a sterile drape was placed. Two 3-0 nylon sutures were used to close the defect. No further bleeding was noted. He tolerated the procedure well. I attest to the content of the Intraoperative Record and any orders documented therein. Any exceptions are noted below.
[2022-02-05] MEDS: BIMATOPROST 0.01% OP SOLN 2.5 ML BTL OP SCH (18:57)
[2022-02-05] MEDS: EZETIMIBE 10 MG TABLET PO SCH (22:59)
[2022-02-05] MEDS: SIMVASTATIN 80 MG TAB PO SCH (22:59)
[2022-02-05] MEDS: CYANOCOBALAMIN (B-12) 2,500 MCG TABLET SL SCH (22:59)
[2022-02-06] MEDS: amLODIPine BESYLATE 5 MG TAB PO SCH (08:38)
[2022-02-06] MEDS: CHOLECALCIFEROL 1,000 UNITS 25 MCG TAB PO SCH (08:39)
[2022-02-06] MEDS: DICLOFENAC SOD 1% GEL 100 GM TUBE EXT SCH (08:39)
[2022-02-06] MEDS: ASPIRIN 325 MG ECTAB PO SCH (08:39)
[2022-02-06] MEDS: FERROUS SULFATE 325 MG TAB PO SCH (08:40)
[2022-02-06] MEDS: ENOXAPARIN INJ 40 MG/0.4 ML SYR SQ SCH (08:40)
[2022-02-06] MEDS: DORZOLAMIDE/TIMOLOL 22.3/6.8MG/ML 10 ML BTL OPL SCH (08:40)
[2022-02-06] MEDS: lisinopril 40 MG TAB PO SCH (08:41)
[2022-02-06] MEDS: OSELTAMIVIR PHOSPHATE 75 MG CAP PO SCH (08:41)
[2022-02-06] MEDS: PANTOprazole 40 MG TAB PO SCH (08:41)
[2022-02-06] MEDS: MULTIVITAMIN TAB PO SCH (08:41)
[2022-02-06] MEDS: PSYLLIUM or GUAR GUM FIBER POWDER PACKET PO SCH (08:42)
[2022-02-06 09:19] LABS: Calcium 8.2 mg/dl (8.5-10.1); Creatinine Clr Calc Pharmacy 69.7 ml/min; Est GFR (African American) 96.9 ml/min; Est GFR (Non-African American) 83.6 ml/min; Potassium 3.5 mmol/L (3.5-5.1)
--- NOTE | 2022-02-06 10:26 | Surgery Progress Note ---
Date of Service February 06, 2022 Assessment & Plan (1) Scalp laceration: Plan: s/p suture repair yesterday. OK to remove sutures in 7 days. OK to shower. Will sign off. Can f/u for suture removal with us if he calls [phone] to schedule visit. (state sutures placed while at [facility] by Dr. Henna Thornton) Admission and Anticipated Discharge Date Admission Date: February 04, 2022 Subjective No further bleeding from head wound. Physical Exam Skin: scalp lac sutures in place, abrasion above with bandaid Results & Data ([facility]) Vital Signs (Past 12 Hours) Vital Signs Temp Pulse Pulse Resp BP Pulse Ox O2 Del Method 02/06/22 08:00 Room Air 02/06/22 07:35 36.4 C L 76 20 202/89 H 95 Room Air 02/06/22 03:43 36.7 C 83 16 187/80 H 95 Room Air 02/06/22 00:24 36.9 C 87 18 165/84 H 93 Room Air 02/05/22 23:20 83
--- NOTE | 2022-02-06 10:36 | Discharge Summary ---
Date of Service February 06, 2022 Admission HPI Per Admitting Provider Mr. Butt is a pleasant 86 year old male. Patient is coming to the ED with a 2 week history of productive cough, shortness of breath and generalized malaise and weakness. Patient reports over course of this past week, he has been feeling dizzy and falling. He denies any loss of consciousness. Patient reports having 3 days of loose stools accompanied by poor oral intake. Patient is very anxious about his blood pressure medications being changed as he had issues 2 years ago. He was not able to elaborate, but just that his BP was uncontrolled for a long time after those changes were made. Reviewing his notes, he had falls at home after changes were made, though his BP did not appear to be low as per notes by PCP and Cardiology. In the ED, he was found to be hyponatremic, and given his falls, admission was called. After admission was ordered, patient was tested for influenza and this was positive. Principal Diagnosis Influenza A, SIADH with hyponatremia, mechanical fall with right frontal scalp laceration Discharge Exam General-alert and oriented x3, no fevers, no chills HEENT-head atraumatic and normocephalic except for right frontotemporal skin laceration which has now been sutured, pupils equal and reactive to light, extraocular muscles intact Neck-no lymphadenopathy or thyromegaly, trachea midline Chest-clear to auscultation percussion. No rales wheezing or rhonchi Cardiac-regular rate and rhythm, normal S1 and S2 Abdomen-normal bowel sounds, nontender, no hepatosplenomegaly Extremities-no cyanosis, clubbing, or edema Neuro-cranial nerves II through XII intact, motor and sensory function within normal limits, strength symmetrical , no focal deficits Psych-normal affect, normal mood Discharge Data Allergies Allergy/AdvReac Type Severity Reaction Status Date / Time milk Allergy Mild Lactose Verified 01/07/22 14:17 intolerence-per pt gluten Allergy Unknown Nausea, Verified 01/07/22 14:17 stomach pain No Known Drug Allergies Allergy Unknown NONE Verified 01/07/22 14:17 Consultations 02/04/22 08:45 Consult Nephrology Routine 02/04/22 08:51 ED Decision to Admit Stat 02/05/22 11:20 Consult General Surgery Routine Hospital Course (1) Hyponatremia: 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 Treated with fluid restriction. Sodium improved. Nephrology consultation and recommendations appreciated (2) Influenza A: Treated with Tamiflu while hospitalized. Supportive care (3) Fall: Patient falls likely secondary to above. OT and PT while hospitalized. Supportive care (4) Hypertension: Blood pressure is labile but he refuses any adjustment of his blood pressure medications. (5) Weakness: Continue OT and PT. Treat underlying influenza (6) Scalp laceration: Right frontal temporal area. Recurrent bleeding. Occurred when he stumbled in his bathroom. No overt syncope according to his . General surgery consulted for laceration repair. 2 sutures were placed yesterday, February 05, and will be removed in 1 week Plan discharge to home today, February 06 Total Time Total Time Spent Total Time Spent (In Minutes): 35 minutes Discharge Plan Discharge Items Patient Disposition: Home - Self-Care Reason For Visit: HYPONATREMIA/FALLS Discharge Diagnosis: Influenza A, SIADH with hyponatremia, mechanical fall with right frontal scalp laceration Activity: Resume your previous activity Non-emergency contact: Primary Care Provider Call non-emergency contact if: you have any medication questions Follow-up/Referrals: Georgiana Austin MD [Primary Care Provider] - Diet: Heart Healthy Addtl Attending Provider Instructions: Suture removal in 1 week Pending Studies at Discharge: No Stand-Alone Forms: My [facility] Smoking Cessation Medications and DC Order Prescriptions: Continued ezetimibe-simvastatin [Vytorin 10-80] 10-80 mg tablet 1 tab PO QPM Qty: 90 3RF triamterene-hydrochlorothiazid 37.5-25 mg capsule 1 cap PO DAILY Qty: 90 3RF mecobalamin (vitamin B12) 1,000 mcg tablet,disintegrating 2,500 mcg SL PM cholecalciferol (vitamin D3) 2,000 unit capsule 2,000 units PO QAM ferrous sulfate 325 mg (65 mg iron) tablet 325 mg PO DAILY omega-3 fatty acids [Fish Oil] 1,000 mg PO DAILY aspirin [Ecotrin] 325 mg tablet,delayed release (DR/EC) 325 mg PO QAM melatonin 5 mg PO HS vitamins A,C,W-jcfe-zuoner [PreserVision AREDS] 1 tab PO BID turmeric 1 cap PO DAILY dorzolamide-timolol 22.3-6.8 mg/mL drops 1 drp OPL BID Lumigan 0.01 % drops 1 drp OPB HS lisinopril 40 mg tablet 40 mg PO DAILY Qty: 90 3RF multivitamin with iron Tablet 1 tab PO QAM omeprazole 20 mg capsule,delayed release(DR/EC) 20 mg PO BID Discharge Orders: Discharge Order (Routine); Ordered 02/06/22 Ordered By: Bhupendra Dewitt Admission Data Admit Date/Time: 02/04/22 08:42 Attending Provider: Bhupendra Dewitt Admit Provider: Rg Oleary Primary Care Provider: Georgiana Austin Other Providers: Trung Srinivasan ; Jerome Carnes ; Naomie Bautista ; Robert Mirza ; Nichole Baker ; Rg Oleary ; Bhupendra Rg ; Geoffrey Gomez ; Cliff Hemphill ; Himanshu Richardson Jr ; Liborio Paz ; Jay Hackett ; Radha Moore ; Mika Bernstein ; Sacha Ozuna Coding Level of Care Code D/C DAY MANAGEMENT >30 MINS Diagnoses Hyponatremia E87.1 Influenza A J10.1 Fall W19.XXXA Hypertension I10 Weakness R53.1 Scalp laceration S01.01XA
--- NOTE | 2022-02-06 14:04 | Nephrology Progress Note ---
Date of Service February 06, 2022 Assessment & Plan (1) Hyponatremia: Plan: * Hyponatremia due to several factors including thiazide diuretic therapy in the setting of acute Influenza A infection * Volume status acceptable * Sodium stable * Urine osmolality not significantly elevated * Resume HCTZ with close monitoring post discharge * Will order follow up PRP within 1 week to be obtained as an outpatient at the [facility] (2) Influenza A: Plan: * Clinically improving (3) Hypertension: Plan: * Long standing poorly controlled HTN * I would generally avoid thiazide diuretics due to h/o hyponatremia (Na 125 - 130 mmol/L since 2019). However, Troy feels strongly that this has been reasonably well tolerated and BP otherwise difficult to manage. I would suggest continue as Rx with close outpatient follow up with Dr. Hartman post discharge. * Troy refused amlodipine Admission and Anticipated Discharge Date Admission Date: February 04, 2022 Subjective No acute events overnight. The patient was seen with his family present this AM prior to discharge. I discussed the plan of care with Dr. Dewitt. Troy feels well. He plans to monitor BP at home. Resume home Rx at discharge. Agreeable to follow up labs within 1 week. Review of Systems Review of Systems: All systems reviewed & are unremarkable except as noted in HPI & below Physical Exam Constitutional: well developed; no acute distress Eyes: + anicteric sclerae; no corneal abnormality ENMT: Mouth: no oral mucosal abnormality and oral mucous membranes not dry Neck: normal visual inspection and trachea midline Respiratory: normal respiratory effort Auscultation: lungs clear to auscultation bilaterally Cardiovascular: Rate/Rhythm: regular rate Heart Sounds: normal S1 and normal S2 Extremities: + pedal edema and + varicosities Musculoskeletal: Extremities: no cyanosis and no clubbing Skin: normal turgor; no lesions Neurologic: Motor/Sensory: no tremor and no asterixis Psychiatric: Orientation: alert and oriented x 3 Results & Data ([facility]) Vital Signs (Past 12 Hours) Vital Signs Temp Pulse Resp BP Pulse Ox O2 Del Method 02/06/22 11:36 36.6 C 71 18 161/74 H 92 Room Air 02/06/22 11:26 36.4 C L 76 20 /89 H 95 02/06/22 08:00 Room Air 02/06/22 07:35 36.4 C L 76 20 H 95 Room Air 02/06/22 03:43 36.7 C 83 16 187/80 H 95 Room Air Laboratory Results Laboratory Results - last 24 hr 02/06/22 07:52 Sodium 130 L Potassium 3.5 Chloride 96 L Carbon Dioxide 26 Anion Gap 8 BUN 12 Creatinine 0.75 Est Cr Clr Drug Dosing 69.7 Est GFR ( Amer) 96.9 Est GFR (Non-Af Amer) 83.6 BUN/Creatinine Ratio 16.0 Glucose 115 H Calcium 8.2 L PG Care Time/CCT Total # of Minutes Spent Total Time Spent with Patient: Total time spent is greater than 50% in coordination of care (as documented) at patient's floor/unit and/or counseling patient: Coding Level of Care Code 99559 Subseq Hosp Care Lvl 3 Diagnoses Hyponatremia E87.1 Influenza A J10.1 Hypertension I10
== END 2022-02-06 12:55 | disposition home or self-care (01) | DRG 644 ==
LOC: ED 07:22 → SUATTDRO 08:42 → 2S 08:42

== ENCOUNTER 2022-08-09 21:49 | Inpatient (IN) ==
[2022-08-09] MEDS ORDERED: KETOROLAC TROMETHAMINE 15 MG/ML VIAL IV ONE (22:00)
[2022-08-09] MEDS ORDERED: ONDANSETRON INJ 2 MG/ML 2 ML VIAL IV STA (22:00)
[2022-08-09] MEDS ORDERED: MoRPHine SULFATE 2 MG/ML CARP IV STA (22:00)
[2022-08-09] MEDS ORDERED: LABETALOL HCL IV 5 MG/ML 20ML IV STA (22:00)
--- NOTE | 2022-08-09 22:19 | Emergency Department Note ---
Impression & Plan Elevated troponin, Hyponatremia, Hypertension, Headache ED Provider Note NAME: KINGSTON BARRIENTOS AGE: 87 SEX: M : 1935 ARRIVES VIA: Walk-In INFORMANT: [Patient] ED PROVIDER(S): [Mohinder Nolen MD] CHIEF COMPLAINT: Hypertension HISTORY OF PRESENT ILLNESS: The patient is an 87-year-old male who states that he has had 10 hours of a headache that seems to start in the back of the neck and go over his head. He has tried Tylenol on 3 separate occasions without relief. He checked his blood pressure about 2 hours ago and it was quite high. The patient was working today doing a lot of crawling and working underneath a mower. He thinks he may have aggravated his neck muscles and now, has a headache from his neck muscle spasm. The patient has no chest pain or shortness of breath. He has not had arm or leg weakness or tingling. No nausea or vomiting. He took his blood pressure medication this morning and typically, his BP is nicely controlled on this medication. PMHx/PSHx: See Below SOCIAL HISTORY: See Below. PHYSICAL EXAM: GENERAL: Patient is in no acute distress. HEENT: No acute trauma, normocephalic atraumatic, mucous membranes moist, no nasal congestion. NECK: No stridor, no adenopathy, no meningismus, trachea is midline. Tender to the superior posterior neck musculature is where the muscles insert onto the scalp. LUNGS: Decreased breath sounds on the left, no wheezing or rhonchi, no respiratory distress HEART: Without murmurs gallops or rubs, regular rate and rhythm. ABDOMEN: Soft, nontender, bowel sounds positive, no peritonitis. EXTREMITIES: No cyanosis or edema, full range of motion of all the joints without pain or difficulty, no signs for acute trauma. NEUROLOGIC: Oriented x 3, no acute motor or sensory deficits, no focal weakness. SKIN: No rash, no jaundice, no diaphoresis. DIFFERENTIAL DIAGNOSIS: Uncontrolled hypertension, missed medication, renal failure, cardiac ischemia, intracranial bleeding, anxiety, among others EMERGENCY DEPARTMENT COURSE/PROCEDURES: Prior/Outside records reviewed: None. ECG per my interpretation: Indication was hypertension. The ECG shows a normal sinus rhythm with a rate of 73. LVH is present. There is no concerning ST elevation. No PVCs. The QTc is 482. Compared to an ECG from 04 February 2022, the QRS duration has increased. The lateral infarct changes are no longer present. Continuous Cardiac Monitoring per my interpretation: An order was placed for continuous cardiac monitoring. The monitor shows a rate of 90 with normal sinus rhythm. Observation Note: The patient was placed in observation status at 2156. Observation was initiated to help rule out/in cardiac ischemia. During the time in observation, the patient was frequently reassessed and received IV blood pressure meds, continuous cardiac monitoring. On Final reassessment the patient was resting comfortably with a decreased blood pressure but a troponin elevation, the patient will be admitted at this time. Total observation time of about 3 and a half hours. MEDICAL DECISION MAKING: There is a mild leukocytosis, this white count elevation could be consistent with infection of the stress of the days events. There was a normal hemoglobin and platelet count. Sodium was low at 129, the patient has a history of hyponatremia although, today's value is slightly lower than his baseline. There was no renal failure. No concerning liver enzyme elevation. Patient appeared to be in a euthyroid state. ECG showed a sinus rhythm with LVH. No ST elevation. Cardiac troponin testing x2 does show a rise, the troponin rise could be secondary to cardiac injury or potentially mismatch from his higher blood pressure. COVID test returned negative. Chest film per my review did not show mediastinal widening, pneumonia or pneumothorax. Brain CT showed no acute bleed or mass effect. On exam, the patient was hypertensive and complaining of a headache. Patient was given IV Zofran, IV morphine, IV Toradol. He received IV labetalol and IV hydralazine for his higher blood pressure. He was ordered for 20 mg of oral lisinopril. Patient's blood pressure is now 166/86, improved. With the rising troponin, with the higher blood pressure, with his complaints of a headache, I do think a hospital stay for further work-up would be warranted. I am most concerned about the troponin rise. I did speak with the patient and case management, the on-call hospitalist was consulted. DISPOSITION: Patient's presentation and findings warrant a hospital stay. Past Med/Surg History Medical History CAD (coronary artery disease) Carotid artery stenosis GERD (gastroesophageal reflux disease) Glaucoma, bilateral Gluten intolerance History of colon cancer 2015 surgical intervention only for colon cancer HTN (hypertension), benign Hx of cardiac pacemaker Hyperlipidemia Hypertension Lower extremity neuropathy Neuropathy (2010) Sinus arrest Surgical History History of abdominal aortic aneurysm repair History of colon surgery History of colonoscopy History of foot surgery History of hand surgery Hx of amputation Hx of heart bypass surgery Hx of hernia repair Hx of shoulder surgery Status post carotid surgery Family History Father Prostate cancer Myocardial infarction Heart disease Hypertension Mother Arthritis Cerebral artery occlusion Heart disease Hypertension Daughter Asthma Cancer Breast cancer Brother Myocardial infarction Heart disease Hypertension Denies family history of Ovarian cancer Colorectal cancer Social History Smoking Status: Former smoker Age Started Using Tobacco: 17; Age Quit Using Tobacco: 63; Cigarettes Per Day: 20 cigarettes; Second Hand Exposure: No; Do You Dip or Chew Tobacco: No; Hx Alcohol Use: Yes Alcohol type: beer Alcohol Intake Frequency: 4 or More x per/Week Alcohol Intake Frequency Comment: One drink a day Hx Substance Use: No Preferred Language: Cameroonian Communication Ability: Effective Hearing Ability: Use of Hearing Aid Meat Slicer 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 Beliefs That Will Affect Care: None marital status: Current Living Situation: Spouse current occupational status: retired How many Children do You have: 2 Feels Safe at Home: Yes Childhood Exposure to Second-Hand Smoke: Yes Diet: regular caffeine: Yes (coffee) Dental Care, Regularly: Yes Physical Activity Frequency: Daily Seatbelt Use: sometimes Sunscreen Use: Yes Assistive Devices: Glasses and Hearing Aid - Bilateral Allergies Allergies Allergy/AdvReac Type Severity Reaction Status Date / Time gluten Allergy Intermediate Nausea, Verified 08/09/22 23:07 stomach pain milk Allergy Intermediate Lactose Verified 08/09/22 23:07 intolerence-per pt Home Meds Home Medications Medication Instructions Recorded Confirmed bimatoprost 0.01 % eye drops 1 drp OPB HS 11/08/18 08/09/22 (Willian) dorzolamide 22.3 mg-timolol 6.8 1 drp OPL BID 11/08/18 08/09/22 mg/mL eye drops cholecalciferol (vitamin D3) 50 2,000 units PO QAM 11/09/18 08/09/22 mcg (2,000 unit) capsule mecobalamin (vitamin B12) 1,000 2,500 mcg sublingual HS 11/09/18 08/09/22 mcg disintegrating tablet,sublingual aspirin 325 mg tablet,delayed 325 mg PO QAM 08/09/19 08/09/22 release (Ecotrin) multivitamin with iron 1 tab PO QAM 04/23/20 08/09/22 ferrous sulfate 325 mg (65 mg 325 mg PO DAILY 08/18/20 08/09/22 iron) tablet omeprazole 20 mg capsule,delayed 20 mg PO BID 02/04/22 08/09/22 release melatonin 5 mg tablet 5 mg PO HS 08/09/22 08/09/22 omega-3 fatty acids 1,000 mg 1,000 mg PO DAILY 08/09/22 08/09/22 capsule turmeric 400 mg capsule 400 mg PO DAILY 08/09/22 08/09/22 vitamins A,C,H-qcxd-qnmvyx 2,148 1 tab PO BID 08/09/22 08/09/22 mcg-113 mg-45 mg-17.4 mg tablet (PreserVision AREDS) Previous Rx's Medication Instructions Recorded triamterene 37.5 1 cap PO DAILY #90 caps 01/04/22 mg-hydrochlorothiazide 25 mg capsule lisinopril 40 mg tablet 40 mg PO DAILY #90 tabs 01/28/22 ezetimibe 10 mg-simvastatin 80 mg 1 tab PO QPM #90 tabs 06/20/22 tablet (Vytorin) Results & Data (ED) Vital Signs Vital Signs - 24 hr 08/09/22 21:50 08/09/22 22:31 08/09/22 22:00 Temperature 36.8 C Temperature Source Temporal Artery Scan Pulse Rate 90 74 67 Pulse Rate from SpO2 Sensor Pulse Rhythm Regular Respiratory Rate 18 23 Respiratory Effort / Characteristics Non-Labored Spontaneous Respiratory Depth Normal Blood Pressure 221/88 H 198/94 H Blood Pressure Mean 132 Pulse Oximetry 97 97 Oxygen Delivery Method Room Air Room Air Sepsis Recent Fever Within 48 Hours No Sepsis New/Unexplained Change in Mental Status No Sepsis Action Taken by Nursing No Action Required 08/09/22 22:01 08/09/22 22:15 08/09/22 22:16 Temperature Temperature Source Pulse Rate 74 Pulse Rate from SpO2 Sensor 73 Pulse Rhythm Respiratory Rate 20 Respiratory Effort / Characteristics Respiratory Depth Blood Pressure 196/94 H Blood Pressure Mean 130 Pulse Oximetry 97 98 Oxygen Delivery Method Sepsis Recent Fever Within 48 Hours Sepsis New/Unexplained Change in Mental Status Sepsis Action Taken by Nursing 08/09/22 22:16 08/09/22 22:20 08/09/22 22:30 Temperature Temperature Source Pulse Rate 71 72 Pulse Rate from SpO2 Sensor 71 72 Pulse Rhythm Respiratory Rate 15 15 Respiratory Effort / Characteristics Respiratory Depth Blood Pressure 198/94 H Blood Pressure Mean 136 Pulse Oximetry 98 98 Oxygen Delivery Method Sepsis Recent Fever Within 48 Hours Sepsis New/Unexplained Change in Mental Status Sepsis Action Taken by Nursing 08/09/22 22:30 08/09/22 22:40 08/09/22 22:50 Temperature Temperature Source Pulse Rate 73 63 65 Pulse Rate from SpO2 Sensor 72 63 66 Pulse Rhythm Respiratory Rate 30 H 20 13 Respiratory Effort / Characteristics Respiratory Depth Blood Pressure Blood Pressure Mean Pulse Oximetry 98 98 98 Oxygen Delivery Method Sepsis Recent Fever Within 48 Hours Sepsis New/Unexplained Change in Mental Status Sepsis Action Taken by Nursing 08/09/22 22:51 08/09/22 22:51 08/09/22 23:00 Temperature Temperature Source Pulse Rate 61 Pulse Rate from SpO2 Sensor 61 Pulse Rhythm Respiratory Rate 16 Respiratory Effort / Characteristics Respiratory Depth Blood Pressure 193/97 H 185/85 H Blood Pressure Mean 151 130 Pulse Oximetry 98 Oxygen Delivery Method Sepsis Recent Fever Within 48 Hours Sepsis New/Unexplained Change in Mental Status Sepsis Action Taken by Nursing 08/09/22 23:00 08/09/22 22:15 08/09/22 23:43 Temperature Temperature Source Pulse Rate 72 74 65 Pulse Rate from SpO2 Sensor 69 Pulse Rhythm Respiratory Rate 13 Respiratory Effort / Characteristics Respiratory Depth Blood Pressure 181/84 H Blood Pressure Mean Pulse Oximetry 97 Oxygen Delivery Method Sepsis Recent Fever Within 48 Hours Sepsis New/Unexplained Change in Mental Status Sepsis Action Taken by Nursing 08/10/22 00:16 08/10/22 00:20 08/10/22 00:30 Temperature Temperature Source Pulse Rate 65 66 Pulse Rate from SpO2 Sensor 70 Pulse Rhythm Respiratory Rate 22 17 Respiratory Effort / Characteristics Respiratory Depth Blood Pressure 196/85 H 193/82 H Blood Pressure Mean 122 115 Pulse Oximetry 97 96 Oxygen Delivery Method Sepsis Recent Fever Within 48 Hours Sepsis New/Unexplained Change in Mental Status Sepsis Action Taken by Nursing 08/10/22 00:30 08/10/22 00:40 08/10/22 00:49 Temperature Temperature Source Pulse Rate 70 67 Pulse Rate from SpO2 Sensor 71 67 Pulse Rhythm Respiratory Rate 25 H 20 Respiratory Effort / Characteristics Respiratory Depth Blood Pressure 166/75 H Blood Pressure Mean 122 Pulse Oximetry 98 97 Oxygen Delivery Method Sepsis Recent Fever Within 48 Hours Sepsis New/Unexplained Change in Mental Status Sepsis Action Taken by Nursing 08/10/22 00:49 08/10/22 00:50 08/10/22 01:00 Temperature Temperature Source Pulse Rate 70 66 Pulse Rate from SpO2 Sensor 71 67 Pulse Rhythm Respiratory Rate 21 18 Respiratory Effort / Characteristics Respiratory Depth Blood Pressure 170/81 H Blood Pressure Mean 116 Pulse Oximetry 97 97 Oxygen Delivery Method Sepsis Recent Fever Within 48 Hours Sepsis New/Unexplained Change in Mental Status Sepsis Action Taken by Nursing 08/10/22 01:00 08/10/22 01:10 08/10/22 01:20 Temperature Temperature Source Pulse Rate 68 65 66 Pulse Rate from SpO2 Sensor 70 65 66 Pulse Rhythm Respiratory Rate 16 16 14 Respiratory Effort / Characteristics Respiratory Depth Blood Pressure Blood Pressure Mean Pulse Oximetry 97 96 95 Oxygen Delivery Method Sepsis Recent Fever Within 48 Hours Sepsis New/Unexplained Change in Mental Status Sepsis Action Taken by Nursing 08/10/22 01:30 08/10/22 01:30 Temperature Temperature Source Pulse Rate 81 Pulse Rate from SpO2 Sensor 80 Pulse Rhythm Respiratory Rate 20 Respiratory Effort / Characteristics Respiratory Depth Blood Pressure 166/86 H Blood Pressure Mean 127 Pulse Oximetry 96 Oxygen Delivery Method Sepsis Recent Fever Within 48 Hours Sepsis New/Unexplained Change in Mental Status Sepsis Action Taken by Shelter Medications Current Medication List: was personally reviewed by me Laboratory Data Attestation: I reviewed the patient's lab results. 08/09/22 22:23 08/09/22 22:23 Lab Results 08/09/22 08/09/22 08/09/22 Range/Units 22:23 22:23 22:23 WBC 10.91 H (4.8-10.8) K/ul RBC 4.90 (4.70-6.10) M/uL Hgb 15.3 (14.0-18.0) g/dl Hct 43.0 (42.0-52.0) % MCV 87.8 (80.0-100.0) fL MCH 31.2 (25.0-34.0) pg MCHC 35.6 (32.0-36.0) g/dL RDW Std Deviation 40.5 (36.4-46.3) fL RDW Coeff of Citlaly 12.6 (11.5-14.5) % Plt Count 156 (130-400) K/uL MPV 10.2 (9.4-12.4) fL Immature Gran % (Auto) 0.4 % Neut % (Auto) 84.4 % Lymph % (Auto) 9.7 % [place] % (Auto) 4.5 % Eos % (Auto) 0.5 % Baso % (Auto) 0.5 % Neut # (Auto) 9.20 H (1.40-6.50) K/uL Lymph # (Auto) 1.06 L (1.2-3.4) K/uL [place] # (Auto) 0.49 (0.11-0.59) K/uL Eos # (Auto) 0.06 (0-0.50) K/uL Baso # (Auto) 0.06 (0-0.2) K/uL Immature Gran # (Auto) 0.04 (0.01-0.20) K/uL Sodium 129 L (136-145) mmol/L Potassium 4.0 (3.5-5.1) mmol/L Chloride 94 L (98-107) mmol/L Carbon Dioxide 25 (21-32) mmol/L Anion Gap 10 (3-11) BUN 11 (6-23) mg/dl Creatinine 0.79 (0.6-1.4) mg/dl Est Cr Clr Drug Dosing 62.8 ml/min Est GFR ( Amer) 94.2 ml/min Est GFR (Non-Af Amer) 81.3 ml/min BUN/Creatinine Ratio 13.9 (10-20) Glucose 139 H (70-99(Fasting)) mg/dl Calcium 9.1 (8.6-10.3) mg/dl Magnesium 1.9 (1.7-2.4) mg/dl Total Bilirubin 0.8 (0.2-1.0) mg/dl AST 20 (13-39) U/L ALT 14 (7-52) U/L Alkaline Phosphatase 73 (34-104) U/L Troponin I High Sens 32.7 H (0-20) pg/ml Total Protein 7.4 (6.0-8.3) gm/dl Albumin 4.7 (3.4-5.0) gm/dl Globulin 2.7 (2.5-4.0) gm/dl Albumin/Globulin Ratio 1.7 (0.9-2) TSH 0.675 (0.300-4.500) uIu/ml SARS-CoV-2, RNA, NAAT (NEGATIVE) 08/09/22 08/10/22 Range/Units 22:40 00:37 WBC (4.8-10.8) K/ul RBC (4.70-6.10) M/uL Hgb (14.0-18.0) g/dl Hct (42.0-52.0) % MCV (80.0-100.0) fL MCH (25.0-34.0) pg MCHC (32.0-36.0) g/dL RDW Std Deviation (36.4-46.3) fL RDW Coeff of Citlaly (11.5-14.5) % Plt Count (130-400) K/uL MPV (9.4-12.4) fL Immature Gran % (Auto) % Neut % (Auto) % Lymph % (Auto) % [place] % (Auto) % Eos % (Auto) % Baso % (Auto) % Neut # (Auto) (1.40-6.50) K/uL Lymph # (Auto) (1.2-3.4) K/uL [place] # (Auto) (0.11-0.59) K/uL Eos # (Auto) (0-0.50) K/uL Baso # (Auto) (0-0.2) K/uL Immature Gran # (Auto) (0.01-0.20) K/uL Sodium (136-145) mmol/L Potassium (3.5-5.1) mmol/L Chloride (98-107) mmol/L Carbon Dioxide (21-32) mmol/L Anion Gap (3-11) BUN (6-23) mg/dl Creatinine (0.6-1.4) mg/dl Est Cr Clr Drug Dosing ml/min Est GFR ( Amer) ml/min Est GFR (Non-Af Amer) ml/min BUN/Creatinine Ratio (10-20) Glucose (70-99(Fasting)) mg/dl Calcium (8.6-10.3) mg/dl Magnesium (1.7-2.4) mg/dl Total Bilirubin (0.2-1.0) mg/dl AST (13-39) U/L ALT (7-52) U/L Alkaline Phosphatase (34-104) U/L Troponin I High Sens 53.5 H* D (0-20) pg/ml Total Protein (6.0-8.3) gm/dl Albumin (3.4-5.0) gm/dl Globulin (2.5-4.0) gm/dl Albumin/Globulin Ratio (0.9-2) TSH (0.300-4.500) uIu/ml SARS-CoV-2, RNA, NAAT NEGATIVE (NEGATIVE) Administered Medications Discontinued Medications Hydralazine HCl (Hydralazine Hcl 20 Mg/Ml Vial) 10 mg IV NOW STA Stop: 08/10/22 00:26 Last Admin: 08/10/22 00:33 Dose: 10 mg Documented By: SUPERINTENDENT CEMETERY Ketorolac Tromethamine (Ketorolac Tromethamine 15 Mg/Ml Vial) 10 mg IV NOW ONE Stop: 08/09/22 22:01 Last Admin: 08/09/22 22:31 Dose: 10 mg Documented By: SUPERINTENDENT CEMETERY Labetalol HCl (Labetalol Hcl Iv 5 Mg/Ml 20ml) 10 mg IV NOW STA Stop: 08/09/22 22:01 Last Admin: 08/09/22 22:31 Dose: 10 mg Documented By: ARNIE Co-signed By: Morphine Sulfate (Morphine Sulfate 2 Mg/Ml Carp) 2 mg IV NOW STA Stop: 08/09/22 22:01 Last Admin: 08/09/22 23:47 Dose: 2 mg Documented By: SUPERINTENDENT CEMETERY Ondansetron HCl (Ondansetron Inj 2 Mg/Ml 2 Ml Vial) 4 mg IV NOW STA Stop: 08/09/22 22:01 Last Admin: 08/09/22 22:31 Dose: 4 mg Documented By: SUPERINTENDENT CEMETERY Imaging Data My Impression: Chest x-ray: Per my review there is no mediastinal widening, pneumonia or pneumothorax. Radiologist's Impression: Head CT 08/09/22 22:00 Exam(s): CT HEAD Without Contrast EXAM: CT Head Without Intravenous Contrast CLINICAL HISTORY: Reason for exam: htn, torres. TECHNIQUE: Axial computed tomography images of the head/brain without intravenous contrast. CTDI is 38.31 mGy and DLP is 624.41 mGy-cm. Automated exposure control was utilized for the study. A dose lowering technique was utilized adhering to the principles of ALARA. COMPARISON: 12/29/14 FINDINGS: Brain: Cortical cerebral volume loss. Patchy white matter hypodensities compatible with chronic small vessel ischemic disease. Borges-white matter differentiation maintained. No acute intracranial hemorrhage, mass-effect, or edema. Ventricles: Unremarkable. No hydrocephalus. Bones/joints: Unremarkable. No acute fracture. Soft tissues: Unremarkable. Vasculature: Intracranial atherosclerosis. Sinuses: Unremarkable as visualized. No acute sinusitis. Mastoid air cells: Unremarkable as visualized. No mastoid effusion. IMPRESSION: No acute intracranial process. Electronically signed by: Chanelle Kovacs M.D. 08/10/22 00:10 AM Discharge Plan Visit Data Chief Complaint: Hypertension Stated Complaint: HYPERTENSION ED Provider: Mohinder Nolen Discharge Problem: Elevated troponin, Hyponatremia, Hypertension, Headache Patient Disposition: Admitted As Inpatient Condition: Fair Forms Stand Alone Forms: My [facility] Prescriptions Prescriptions: No Action triamterene-hydrochlorothiazid 37.5-25 mg capsule 1 cap PO DAILY Qty: 90 3RF ezetimibe-simvastatin [Vytorin 10-80] 10-80 mg tablet 1 tab PO QPM Qty: 90 3RF mecobalamin (vitamin B12) 1,000 mcg tablet,disintegrating 2,500 mcg SL HS cholecalciferol (vitamin D3) 2,000 unit capsule 2,000 units PO QAM ferrous sulfate 325 mg (65 mg iron) tablet 325 mg PO DAILY aspirin [Ecotrin] 325 mg tablet,delayed release (DR/EC) 325 mg PO QAM dorzolamide-timolol 22.3-6.8 mg/mL drops 1 drp OPL BID Lumigan 0.01 % drops 1 drp OPB HS lisinopril 40 mg tablet 40 mg PO DAILY Qty: 90 3RF multivitamin with iron Tablet 1 tab PO QAM omeprazole 20 mg capsule,delayed release(DR/EC) 20 mg PO BID omega-3 fatty acids 1,000 mg Capsule 1,000 mg PO DAILY melatonin 5 mg Tablet 5 mg PO HS PreserVision AREDS 2,148 mcg-113 mg-45 mg-17.4mg Tablet 1 tab PO BID Rx Instructions: administer with AM and PM meals turmeric 400 mg Capsule 400 mg PO DAILY Referrals Referrals: Georgiana Austin MD [Primary Care Provider] -
[2022-08-09 22:41] LABS: Basophils # (auto) 0.06 K/uL (0-0.2); Basophils % (auto) 0.5 %; Eosinophils # (auto) 0.06 K/uL (0-0.50); Eosinophils % (auto) 0.5 %; Hemoglobin 15.3 g/dl (14.0-18.0); Immature Granulocytes # (auto) 0.04 K/uL (0.01-0.20); Immature Granulocytes % (auto) 0.4 %; Lymphocytes # (auto) 1.06 K/uL (1.2-3.4); Lymphocytes % (auto) 9.7 %; Mean Corpuscular Hemoglobin 31.2 pg (25.0-34.0); Mean Corpuscular Hgb Conc 35.6 g/dL (32.0-36.0); Mean Corpuscular Volume 87.8 fL (80.0-100.0); Mean Platelet Volume 10.2 fL (9.4-12.4); Monocytes # (auto) 0.49 K/uL (0.11-0.59); Monocytes % (auto) 4.5 %; Neutrophils % (auto) 84.4 %; Platelet Count 156 K/uL (130-400); RDW Coefficient of Variation 12.6 % (11.5-14.5); RDW Standard Deviation 40.5 fL (36.4-46.3); White Blood Count 10.91 K/ul (4.8-10.8)
[2022-08-09 22:57] LABS: Albumin Globulin Ratio 1.7 (0.9-2); Albumin Level 4.7 gm/dl (3.4-5.0); BUN Creatinine Ratio 13.9 (10-20); Bilirubin,Total 0.8 mg/dl (0.2-1.0); Calcium 9.1 mg/dl (8.6-10.3); Creatinine Clr Calc Pharmacy 62.8 ml/min; Est GFR (African American) 94.2 ml/min; Est GFR (Non-African American) 81.3 ml/min; Globulin 2.7 gm/dl (2.5-4.0); Magnesium 1.9 mg/dl (1.7-2.4); Total Protein 7.4 gm/dl (6.0-8.3)
[2022-08-09 23:03] LABS: Troponin I High Sensitivity 32.7 pg/ml (0-20)
--- NOTE | 2022-08-10 00:10 | CT Scan Report ---
Exam(s): CT HEAD Without Contrast EXAM: CT Head Without Intravenous Contrast CLINICAL HISTORY: Reason for exam: htn, torres. TECHNIQUE: Axial computed tomography images of the head/brain without intravenous contrast. CTDI is 38.31 mGy and DLP is 624.41 mGy-cm. Automated exposure control was utilized for the study. A dose lowering technique was utilized adhering to the principles of ALARA. COMPARISON: 12/29/14 FINDINGS: Brain: Cortical cerebral volume loss. Patchy white matter hypodensities compatible with chronic small vessel ischemic disease. Borges-white matter differentiation maintained. No acute intracranial hemorrhage, mass-effect, or edema. Ventricles: Unremarkable. No hydrocephalus. Bones/joints: Unremarkable. No acute fracture. Soft tissues: Unremarkable. Vasculature: Intracranial atherosclerosis. Sinuses: Unremarkable as visualized. No acute sinusitis. Mastoid air cells: Unremarkable as visualized. No mastoid effusion. IMPRESSION: No acute intracranial process. Electronically signed by: Chanelle Kovacs M.D. 08/10/22 00:10 AM
[2022-08-10] MEDS ORDERED: hydrALAZINE HCL 20 MG/ML VIAL IV STA (00:25)
[2022-08-10] MEDS ORDERED: lisinopril 20 MG TAB PO STA (01:29)
--- NOTE | 2022-08-10 02:52 | History & Physical Report ---
Date of Service August 10, 2022 Assessment & Plan (1) Elevated troponin: (2) Hyponatremia: (3) Hypertension: (4) Neck pain: (5) Recurrent occipital headache: (6) HTN (hypertension), benign: (7) Hyperlipidemia: (8) CAD (coronary artery disease): (9) Hx of heart bypass surgery: (10) Hx of cardiac pacemaker: (11) GERD (gastroesophageal reflux disease): Plan elevated troponin/CAD/status post CABG/hypertension- The patient will be admitted to telemetry for serial cardiac enzymes, serial EKG's, cardiac rhythm monitoring and a 2-D echocardiogram with Dopplers. Initial troponin 32.7 with follow-up troponin 53.5, without chest pain or shortness of breath continue aspirin 325 mg daily, lisinopril 40 mg daily hold triamterene/HCTZ add Nitropaste 1 inch to anterior chest wall every 6 hours Hydralazine 10 mg IV every 4 hours as needed systolic blood pressure greater than 160 he spent a considerable amount of time out in the yard today on a hot summer day, and likely stressed his system too much. In addition, caused him to have an increased headache due to wrenching his lawnmower blade onto his lawnmower, which worsened his neck pain, worsening his occipital headache, and that secondarily increasing his blood pressure and his troponin Hyponatremia- holding triamterene/HCTZ repeat laboratories every a.m. hyperlipidemia- continue Zetia and simvastatin History of Present Illness Chief Complaint: The patient presents to the emergency department with an acute 10-hour worsening of his chronic neck and occipital area headache days had for the past several years. He checked his blood pressure a few hours ago, found it was quite high, and thus presents to the ED for assessment Primary Care Provider: Georgiana Austin MD the patient is an 87-year-old male with a past medical history including hypertension, hyperlipidemia, peripheral neuropathy, cardiac pacemaker status, status post CABG, CAD, sinus arrest, gluten intolerance, T12 compression fracture, GERD, iron deficiency anemia and chronic neck and occipital area headache. The patient presents to the emergency department with complaint of worsening today of his chronic head and neck ache, that he attributes to working underneath a lawnmower and trying to affix the blade, and having to contort his body and try to tighten the blade back on. With the persistence of this worsened headache during the day, he had checked his pressure this evening, found it to be elevated, and thus presents to the ED for assessment. His blood pressure did remain elevated in the ED, and he reports that it always remains higher when he is in the hospital. Significant laboratories: Sodium 129, glucose 139, initial troponin of 32.7 with follow-up 53.5 from the ED the patient received the following: Toradol 10 mg IV, morphine sulfate 2 mg IV, Zofran 4 mg IV, labetalol 10 mg IV, hydralazine 10 mg IV. Allergies Allergy/AdvReac Type Severity Reaction Status Date / Time gluten Allergy Intermediate Nausea, Verified 08/09/22 23:07 stomach pain milk Allergy Intermediate Lactose Verified 08/09/22 23:07 intolerence-per pt Home Medications Medication Instructions Recorded Confirmed Type bimatoprost 0.01 % eye drops 1 drp OPB HS 11/08/18 08/09/22 History (Lumigan) dorzolamide 22.3 mg-timolol 6.8 1 drp OPL BID 11/08/18 08/09/22 History mg/mL eye drops cholecalciferol (vitamin D3) 50 2,000 units PO QAM 11/09/18 08/09/22 History mcg (2,000 unit) capsule mecobalamin (vitamin B12) 1,000 2,500 mcg sublingual HS 11/09/18 08/09/22 History mcg disintegrating tablet,sublingual aspirin 325 mg tablet,delayed 325 mg PO QAM 08/09/19 08/09/22 History release (Ecotrin) multivitamin with iron 1 tab PO QAM 04/23/20 08/09/22 History ferrous sulfate 325 mg (65 mg 325 mg PO DAILY 08/18/20 08/09/22 History iron) tablet triamterene 37.5 1 cap PO DAILY #90 caps 01/04/22 08/09/22 Rx mg-hydrochlorothiazide 25 mg capsule lisinopril 40 mg tablet 40 mg PO DAILY #90 tabs 01/28/22 08/09/22 Rx omeprazole 20 mg capsule,delayed 20 mg PO BID 02/04/22 08/09/22 History release ezetimibe 10 mg-simvastatin 80 mg 1 tab PO QPM #90 tabs 06/20/22 08/09/22 Rx tablet (Vytorin) melatonin 5 mg tablet 5 mg PO HS 08/09/22 08/09/22 History omega-3 fatty acids 1,000 mg 1,000 mg PO DAILY 08/09/22 08/09/22 History capsule turmeric 400 mg capsule 400 mg PO DAILY 08/09/22 08/09/22 History vitamins A,C,A-haza-xvrgoi 2,148 1 tab PO BID 08/09/22 08/09/22 History mcg-113 mg-45 mg-17.4 mg tablet (PreserVision AREDS) Past Med/Surg History Medical History (Updated 08/10/22 @ 05:23 by Georges Anaya MD) CAD (coronary artery disease) Carotid artery stenosis GERD (gastroesophageal reflux disease) Glaucoma, bilateral Gluten intolerance History of colon cancer 2014 surgical intervention only for colon cancer HTN (hypertension), benign Hx of cardiac pacemaker Hyperlipidemia Hypertension Lower extremity neuropathy Neck pain Neuropathy (2009) Recurrent occipital headache Sinus arrest Surgical History History of abdominal aortic aneurysm repair x3 History of colon surgery 2014 surgical intervention only for colon cancer History of colonoscopy fiberoptic History of foot surgery History of hand surgery 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 Hx of heart bypass surgery x 2 vessel in 1995 failed stress test Hx of hernia repair double hernia repair Hx of shoulder surgery Arthroscopy with Rotator cuff repair Status post carotid surgery Thromboendarterectomy Family History Father Prostate cancer Myocardial infarction Heart disease Hypertension Mother Arthritis Cerebral artery occlusion Heart disease Hypertension Daughter Asthma Cancer Breast cancer Brother Myocardial infarction Heart disease Hypertension Denies family history of Ovarian cancer Colorectal cancer Social History Smoking Status: Former smoker Age Started Using Tobacco: 17; Age Quit Using Tobacco: 63; Cigarettes Per Day: 20 cigarettes; Second Hand Exposure: No; Do You Dip or Chew Tobacco: No; Tobacco Cessation Education Requested by Patient: No Hx Alcohol Use: Yes Alcohol type: beer Alcohol Intake Frequency: 4 or More x per/Week Alcohol Intake Frequency Comment: One drink a day Hx Substance Use: No Preferred Language: Ukrainian Communication Ability: Effective Hearing Ability: Use of Hearing Aid Clinical Team Manager 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 Beliefs That Will Affect Care: None marital status: Current Living Situation: Spouse current occupational status: retired How many Children do You have: 2 Feels Safe at Home: Yes Safety Concerns: Feels Safe At This Time Childhood Exposure to Second-Hand Smoke: Yes Diet: regular caffeine: Yes (coffee) Dental Care, Regularly: Yes Physical Activity Frequency: Daily Seatbelt Use: sometimes Sunscreen Use: Yes Assistive Devices: Glasses and Hearing Aid - Bilateral Review of Systems Review of Systems: the patient denies chest pain, palpitations, shortness of breath, dyspnea on exertion, cough, lower extremity swelling, sore throat, fevers, chills, sweats, nausea, vomiting, diarrhea , constipation, abdominal pain, pelvic pain, blood in urine or stool, dysuria, urinary frequency or urgency, lightheadedness, dizziness, memory loss, loss of consciousness, rash, abnormal bruising or bleeding, imbalance, focal weakness, numbness or tingling in arms or legs, generalized arthralgias or myalgias, or night sweats. The review of systems is otherwise negative other than for that already noted above, and at least 10 systems have been reviewed. Physical Exam Physical Exam: The patient is awake, alert and oriented 3, well developed and well nourished, normocephalic and atraumatic, lying in bed and in no acute distress. HEENT--PERRL, EOMI, mucous membranes and oropharynx Normal. Neck--supple. No JVD. No bruits. Thyroid normal, trachea midline, no adenopathy. Heart--normal S1 and S2. No murmurs, rubs or gallops. Lungs--clear bilaterally, no respiratory distress, no accessory muscle use. Abdomen--normal bowel sounds and soft. Nontender. Nondistended, no hernias or masses, no organomegaly. Extremities--no cyanosis or clubbing. No edema. There are good distal pulses b/l. Dermatologic--normal skin turgor, normal color, no abnormal lymph nodes, no rash. Neurologic--cranial nerves II through XII grossly intact. Rheumatologic--normal range of motion. Psychiatric--normal affect. Results & Data Results & Data Vital Signs (Past 12 Hours) Vital Signs Temp Pulse Resp BP Pulse Ox O2 Del Method 08/10/22 02:40 74 24 96 08/10/22 02:30 82 12 95 08/10/22 02:30 167/74 H 08/10/22 02:20 68 11 L 92 08/10/22 02:10 69 17 95 08/10/22 02:00 76 23 95 08/10/22 02:00 159/77 H 08/10/22 01:56 162/78 H 08/10/22 01:56 76 19 96 08/10/22 01:50 74 19 96 08/10/22 01:40 70 21 95 08/10/22 01:30 81 20 96 08/10/22 01:30 166/86 H 08/10/22 01:20 66 14 95 08/10/22 01:10 65 16 96 08/10/22 01:00 68 16 97 08/10/22 01:00 170/81 H 08/10/22 00:50 66 18 97 08/10/22 00:49 70 21 97 08/10/22 00:49 166/75 H 08/10/22 00:40 67 20 97 08/10/22 00:30 70 25 H 98 08/10/22 00:30 193/82 H 08/10/22 00:20 66 17 96 08/10/22 00:16 65 22 196/85 H 97 08/09/22 23:43 65 181/84 H 08/09/22 22:15 74 08/09/22 23:00 72 13 97 08/09/22 23:00 185/85 H 08/09/22 22:51 61 16 98 08/09/22 22:51 193/97 H 08/09/22 22:50 65 13 98 08/09/22 22:40 63 20 98 08/09/22 22:30 73 30 H 98 08/09/22 22:30 198/94 H 08/09/22 22:20 72 15 98 08/09/22 22:16 71 15 98 08/09/22 22:16 196/94 H 08/09/22 22:15 74 20 98 08/09/22 22:01 97 08/09/22 22:00 67 23 97 Room Air 08/09/22 22:31 74 198/94 H 08/09/22 21:50 36.8 C 90 18 221/88 H 97 Room Air Laboratory Results Laboratory Results WBC 10.91 K/ul (4.8-10.8) H 08/09/22 22: RBC 4.90 M/uL (4.70-6.10) 08/09/22 22: Hgb 15.3 g/dl (14.0-18.0) 08/09/22 22: Hct 43.0 % (42.0-52.0) 08/09/22 22: MCV 87.8 fL (80.0-100.0) 08/09/22 22: MCH 31.2 pg (25.0-34.0) 08/09/22 22: MCHC 35.6 g/dL (32.0-36.0) 08/09/22: RDW Std Deviation 40.5 fL (36.4-46.3) 08/09/22: RDW Coeff of Citlaly 12.6 % (11.5-14.5) 08/09/22: Plt Count 156 K/uL (130-400) 08/09/22 22: MPV 10.2 fL (9.4-12.4) 08/09/22 22: Immature Gran % (Auto) 0.4 % 08/09/22 22: Neut % (Auto) 84.4 % 08/09/22 22: Lymph % (Auto) 9.7 % 08/09/22 22: [place] % (Auto) 4.5 % 08/09/22 22: Eos % (Auto) 0.5 % 08/09/22 22: Baso % (Auto) 0.5 % 08/09/22: Neut # (Auto) 9.20 K/uL (1.40-6.50) H 08/09/22 22: Lymph # (Auto) 1.06 K/uL (1.2-3.4) L 08/09/22 22: [place] # (Auto) 0.49 K/uL (0.11-0.59) 08/09/22 22: Eos # (Auto) 0.06 K/uL (0-0.50) 08/09/22 22: Baso # (Auto) 0.06 K/uL (0-0.2) 08/09/22 22: Immature Gran # (Auto) 0.04 K/uL (0.01-0.20) 08/09/22 22:23 Sodium 129 mmol/L (136-145) L 08/09/22 22:23 Potassium 4.0 mmol/L (3.5-5.1) 08/09/22 22: Chloride 94 mmol/L (98-107) L 08/09/22 22:23 Carbon Dioxide 25 mmol/L (21-32) 08/09/22 22:23 Anion Gap 10 (3-11) 08/09/22 22: BUN 11 mg/dl (6-23) 08/09/22 22:23 Creatinine 0.79 mg/dl (0.6-1.4) 08/09/22 22:23 Est Cr Clr Drug Dosing 62.8 ml/min 08/09/22 22: Est GFR ( Amer) 94.2 ml/min 08/09/22 22: Est GFR (Non-Af Amer) 81.3 ml/min 08/09/22 22:23 BUN/Creatinine Ratio 13.9 (10-20) 08/09/22 22: Glucose 139 mg/dl (70-99(Fasting)) H 08/09/22 22:23 Calcium 9.1 mg/dl (8.6-10.3) 08/09/22 22: Magnesium 1.9 mg/dl (1.7-2.4) 08/09/22 22: Total Bilirubin 0.8 mg/dl (0.2-1.0) 08/09/22 22: AST 20 U/L (13-39) 08/09/22 22:23 ALT 14 U/L (7-52) 08/09/22 22:23 Alkaline Phosphatase 73 U/L (34-104) 08/09/22 22:23 Troponin I High Sens 53.5 pg/ml (0-20) H* D 08/10/22 00:37 Total Protein 7.4 gm/dl (6.0-8.3) 08/09/22 22: Albumin 4.7 gm/dl (3.4-5.0) 08/09/22 22:23 Globulin 2.7 gm/dl (2.5-4.0) 08/09/22 22:23 Albumin/Globulin Ratio 1.7 (0.9-2) 08/09/22 22:23 TSH 0.675 uIu/ml (0.300-4.500) 08/09/22 22:23 SARS-CoV-2, RNA, NAAT NEGATIVE (NEGATIVE) 08/09/22 22:[address] 08/09/22 22:00 Exam(s): CT HEAD Without Contrast EXAM: CT Head Without Intravenous Contrast CLINICAL HISTORY: Reason for exam: htn, torres. TECHNIQUE: Axial computed tomography images of the head/brain without intravenous contrast. CTDI is 38.31 mGy and DLP is 624.41 mGy-cm. Automated exposure control was utilized for the study. A dose lowering technique was utilized adhering to the principles of ALARA. COMPARISON: 12/29/14 FINDINGS: Brain: Cortical cerebral volume loss. Patchy white matter hypodensities compatible with chronic small vessel ischemic disease. Borges-white matter differentiation maintained. No acute intracranial hemorrhage, mass-effect, or edema. Ventricles: Unremarkable. No hydrocephalus. Bones/joints: Unremarkable. No acute fracture. Soft tissues: Unremarkable. Vasculature: Intracranial atherosclerosis. Sinuses: Unremarkable as visualized. No acute sinusitis. Mastoid air cells: Unremarkable as visualized. No mastoid effusion. IMPRESSION: No acute intracranial process. Electronically signed by: Chanelle Kovacs M.D. 08/10/22 00:10 AM Code Status & VTE Plan Code Status Full code VTE Prophylaxis Plan VTE Prophylaxis will be ordered: Yes PG Care Time/CCT Total # of Minutes Spent Total Time Spent with Patient: Total time spent is greater than 50% in coordination of care (as documented) at patient's floor/unit and/or counseling patient: Coding Level of Care Code 53786 INT INP/OBS CARE 3/75MIN Diagnoses Elevated troponin R77.8 Hyponatremia E87.1 Hypertension I10 Hypertension type: unspecified Neck pain M54.2 Recurrent occipital headache R51.9 HTN (hypertension), benign I10 Hyperlipidemia E78.5 CAD (coronary artery disease) I25.10 Hx of heart bypass surgery Z95.1 Hx of cardiac pacemaker Z95.0 GERD (gastroesophageal reflux disease) K21.9 (3) Hypertension Hypertension type: unspecified Qualified Code(s): I10 - Essential (primary) hypertension
[2022-08-10] MEDS: NITROGLYCERIN 2% OINTMENT 30GM TUBE EXT SCH ×2 (02:54→08:02)
[2022-08-10] MEDS ORDERED: ONDANSETRON INJ 2 MG/ML 2 ML VIAL IV PRN (04:45)
[2022-08-10] MEDS ORDERED: hydrALAZINE HCL 20 MG/ML VIAL IV PRN (05:24)
--- NOTE | 2022-08-10 07:14 | XRay Report ---
XR chest 1V portable HISTORY: weakness COMPARISON: Chest 02/04/2022. FINDINGS: No focal lung consolidations to suggest a pneumonia. No evidence for pulmonary edema. No pl eural fusions. No pneumothorax. The heart is normal in size. Poststernotomy changes and a left-sided pacemaker again noted. Mild interstitial thickening which is likely chronic. IMPRESSION: No significant change compared to the prior study. No acute process. ACT 112: Negative or not required by law. Electronically signed by: Peewee Cotter M.D. 08/10/2022 7:13 AM
[2022-08-10] MEDS: PANTOprazole 40 MG TAB PO SCH ×2 (07:59→19:42)
[2022-08-10] MEDS: FERROUS SULFATE 325 MG TAB PO SCH (07:59)
[2022-08-10] MEDS: MULTIVITAMIN CHEWABLE TAB PO SCH (07:59)
[2022-08-10] MEDS: CHOLECALCIFEROL 1,000 UNITS 25 MCG TAB PO SCH (07:59)
[2022-08-10] MEDS: ASPIRIN 325 MG ECTAB PO SCH (07:59)
[2022-08-10] MEDS: lisinopril 40 MG TAB PO SCH (07:59)
[2022-08-10] MEDS: CEROVITE ADV FORMULA TAB PO SCH ×2 (07:59→16:26)
[2022-08-10] MEDS ORDERED: NON-FORMULARY MEDICATION (Turmeric 400 mg Capsule) PO SCH (09:00)
[2022-08-10] MEDS ORDERED: DORZOLAMIDE/TIMOLOL 22.3/6.8MG/ML 10 ML BTL OPL SCH ×2 (09:00→18:30)
[2022-08-10 10:54] LABS: BUN Creatinine Ratio 17.9 (10-20); Creatinine Clr Calc Pharmacy 63.6 ml/min; Est GFR (African American) 94.7 ml/min; Est GFR (Non-African American) 81.7 ml/min; Potassium 3.5 mmol/L (3.5-5.1)
[2022-08-10] MEDS: ACETAMINOPHEN 325 MG TAB PO PRN ×2 (12:02→16:28)
[2022-08-10] MEDS ORDERED: SODIUM CHLORIDE 0.9% 500 ML IV SCH (12:15)
[2022-08-10] MEDS ORDERED: LIDOCAINE 5% 1 PATCH TD STA (13:34)
[2022-08-10] MEDS: SIMETHICONE 80 MG CHEW PO PRN (14:09)
--- NOTE | 2022-08-10 15:09 | XCELERA ---
[id number]
[2022-08-10 17:45] LABS: BUN Creatinine Ratio 15.1 (10-20); Calcium 8.7 mg/dl (8.6-10.3); Creatinine Clr Calc Pharmacy 53.3 ml/min; Est GFR (African American) 85.9 ml/min; Est GFR (Non-African American) 74.1 ml/min; Potassium 3.2 mmol/L (3.5-5.1)
[2022-08-10] MEDS ORDERED: POTASSIUM CHLORIDE CRTAB 20 MEQ TABCR PO STA (17:48)
--- NOTE | 2022-08-10 17:49 | Hospitalist Progress Note ---
Date of Service August 10, 2022 Assessment & Plan (1) Elevated troponin: Plan: Trended downward, myocardial demand ischemia in the setting of underlying CAD and exertion in the hot weather Echocardiogram ordered-no wall motion abnormalities, preserved EF (2) Hyponatremia: Plan: Sodium remains even lower at 127 this morning and again on repeat in the evening Was given 500 mL of normal saline Continue to hold HCTZ and monitor blood pressures Fluid restrict 1500 mL Check urine sodium and urine osmolality TSH is normal as he is euvolemic. Do not suspect adrenal insufficiency. HCTZ is confounding the picture and therefore could just be from this Baseline sodium around 131 Suggest discontinuing HCTZ Follow BMP again in the morning (3) Hypertension: Plan: Blood pressures quite elevated on admission, he does admit to anxiety and whitecoat hypertension Nitropaste discontinued for headache Continue to hold home triamterene HCTZ Continue home lisinopril 40 Mg once daily Consider beta-leonarda as he does have a pacemaker despite having his history of SSS requiring PPM (4) Neck pain: Plan: Acute on chronic, musculoskeletal in nature Add lidocaine patch Tylenol as needed (5) Recurrent occipital headache: Plan: As above (6) Hyperlipidemia: Plan: Continue Zetia, simvastatin (7) CAD (coronary artery disease): Plan: History of CABG With myocardial demand ischemia as above Continue home aspirin, Zetia, simvastatin, lisinopril He is not on [id number] cardiology notes and cannot figure out why (8) Hx of heart bypass surgery: Plan: As above (9) Hx of cardiac pacemaker: Plan: As above (10) GERD (gastroesophageal reflux disease): Plan: Continue pantoprazole Admission and Anticipated Discharge Date Admission Date: August 10, 2022 Subjective Patient feels well, has no complaints except for pain in the back of the neck up into the head which is acute on chronic. Not relieved much with Tylenol. He has never tried a lidocaine patch. No chest pains or shortness of breath. Telemetry with sinus rhythm, first AV block, rates in the 60s 80s Physical Exam Constitutional: WD/WN, vitals as above Respiratory: normal respiratory effort, lungs clear to auscultation Cardiovascular: Rate/Rhythm: regular rate and regular rhythm Heart Sounds: + murmur (2/6 MATTHEW at RUSB) Gastrointestinal (Abdomen): normal bowel sounds, soft, nontender, no hepatosplenomegaly Results & Data Results & Data Vital Signs (Past 12 Hours) Vital Signs Temp Pulse Pulse Resp BP BP Pulse Ox 08/10/22 15:35 36.5 C 70 18 162/74 H 95 08/10/22 15:11 77 08/10/22 11:55 151/63 H 08/10/22 11:04 36.4 C L 75 18 159/68 H 96 08/10/22 07:51 72 08/10/22 07:17 36.7 C 74 19 146/69 H 95 08/10/22 06:43 160/73 H O2 Del Method 08/10/22 15:35 Room Air 08/10/22 15:11 08/10/22 11:55 08/10/22 11:04 Room Air 08/10/22 07:51 08/10/22 07:17 Room Air 08/10/22 06:43 Laboratory Results BMP is reviewed PG Care Time/CCT Total # of Minutes Spent Total Time Spent with Patient: Total time spent is greater than 50% in coordination of care (as documented) at patient's floor/unit and/or counseling patient: Coding Level of Care Code None Diagnoses Elevated troponin R77.8 Hyponatremia E87.1 Hypertension I10 Hypertension type: unspecified Neck pain M54.2 Recurrent occipital headache R51.9 Hyperlipidemia E78.5 CAD (coronary artery disease) I25.10 Hx of heart bypass surgery Z95.1 Hx of cardiac pacemaker Z95.0 GERD (gastroesophageal reflux disease) K21.9 (3) Hypertension Hypertension type: unspecified Qualified Code(s): I10 - Essential (primary) hypertension
[2022-08-10] MEDS ORDERED: DICLOFENAC SOD 1% GEL 100 GM TUBE EXT PRN (18:15)
[2022-08-10] MEDS ORDERED: Nursing to Pharmacy Communication SCH (18:30)
[2022-08-10] MEDS: DORZOLAMIDE/TIMOLOL 22.3/6.8MG/ML 10 ML BTL OPL SCH (18:31)
[2022-08-10] MEDS ORDERED: MELATONIN 3 MG TAB PO SCH (21:00)
[2022-08-10] MEDS ORDERED: SIMVASTATIN 80 MG TAB PO SCH (21:00)
[2022-08-10] MEDS ORDERED: CYANOCOBALAMIN (B-12) 2,500 MCG TABLET SL SCH (21:00)
[2022-08-10] MEDS ORDERED: EZETIMIBE 10 MG TABLET PO SCH (21:00)
[2022-08-10] MEDS ORDERED: BIMATOPROST 0.01% OP SOLN 2.5 ML BTL OP SCH (21:00)
[2022-08-11] MEDS: lisinopril 40 MG TAB PO SCH (08:00)
[2022-08-11] MEDS: FERROUS SULFATE 325 MG TAB PO SCH (08:01)
[2022-08-11] MEDS: CHOLECALCIFEROL 1,000 UNITS 25 MCG TAB PO SCH (08:01)
[2022-08-11] MEDS: DORZOLAMIDE/TIMOLOL 22.3/6.8MG/ML 10 ML BTL OPL SCH (08:01)
[2022-08-11] MEDS: CEROVITE ADV FORMULA TAB PO SCH (08:01)
[2022-08-11] MEDS: MULTIVITAMIN CHEWABLE TAB PO SCH (08:01)
[2022-08-11] MEDS: ASPIRIN 325 MG ECTAB PO SCH (08:01)
[2022-08-11] MEDS: PANTOprazole 40 MG TAB PO SCH (08:02)
[2022-08-11] MEDS: SIMETHICONE 80 MG CHEW PO PRN (08:06)
[2022-08-11 08:29] LABS: Basophils # (auto) 0.02 K/uL (0-0.2); Basophils % (auto) 0.2 %; Eosinophils # (auto) 0.08 K/uL (0-0.50); Eosinophils % (auto) 0.9 %; Hematocrit (blood only) 40.3 % (42.0-52.0); Hemoglobin 14.1 g/dl (14.0-18.0); Immature Granulocytes # (auto) 0.04 K/uL (0.01-0.20); Immature Granulocytes % (auto) 0.5 %; Lymphocytes # (auto) 0.94 K/uL (1.2-3.4); Lymphocytes % (auto) 10.8 %; Mean Corpuscular Hemoglobin 30.5 pg (25.0-34.0); Mean Platelet Volume 10.3 fL (9.4-12.4); Monocytes # (auto) 0.63 K/uL (0.11-0.59); Monocytes % (auto) 7.2 %; Neutrophils # (auto) 7.02 K/uL (1.40-6.50); Neutrophils % (auto) 80.4 %; Platelet Count 141 K/uL (130-400); RDW Coefficient of Variation 12.6 % (11.5-14.5); RDW Standard Deviation 40.1 fL (36.4-46.3); Red Blood Count 4.63 M/uL (4.70-6.10); White Blood Count 8.73 K/ul (4.8-10.8)
[2022-08-11 08:43] LABS: Albumin Level 4.2 gm/dl (3.4-5.0); BUN Creatinine Ratio 14.1 (10-20); Creatinine Clr Calc Pharmacy 69.8 ml/min; Est GFR (African American) 98.5 ml/min; Phosphorus 2.2 mg/dl (2.5-4.9); Potassium 3.9 mmol/L (3.5-5.1)
[2022-08-11] MEDS ORDERED: METOPROLOL TARTRATE 25 MG TAB PO SCH (10:15)
[2022-08-11] MEDS: ACETAMINOPHEN 325 MG TAB PO PRN (10:19)
--- NOTE | 2022-08-11 14:03 | Discharge Summary ---
Discharge Summary Date of Service August 11, 2022 Notes For Next Care Provider Please check BMP in 1 week Medication Changes From Visit Dc HCTZ/triamterene Added metoprolol 25mg po bid Added Voltaren gel and lidocaine patches Admission HPI Per Admitting Provider the patient is an 87-year-old male with a past medical history including hypertension, hyperlipidemia, peripheral neuropathy, cardiac pacemaker status, status post CABG, CAD, sinus arrest, gluten intolerance, T12 compression fracture, GERD, iron deficiency anemia and chronic neck and occipital area headache. The patient presents to the emergency department with complaint of worsening today of his chronic head and neck ache, that he attributes to working underneath a lawnmower and trying to affix the blade, and having to contort his body and try to tighten the blade back on. With the persistence of this worsened headache during the day, he had checked his pressure this evening, found it to be elevated, and thus presents to the ED for assessment. His blood pressure did remain elevated in the ED, and he reports that it always remains higher when he is in the hospital. Significant laboratories: Sodium 129, glucose 139, initial troponin of 32.7 with follow-up 53.5 from the ED the patient received the following: Toradol 10 mg IV, morphine sulfate 2 mg IV, Zofran 4 mg IV, labetalol 10 mg IV, hydralazine 10 mg IV. 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 Do not suspect adrenal insufficiency. HCTZ is confounding the picture and therefore could just be from this Baseline sodium around 131 Suggest discontinuing HCTZ permanently, replaced with metoprolol for BP control Follow BMP in 1 week as outpt (2) Elevated troponin: Trended downward, myocardial demand ischemia in the setting of underlying CAD and exertion in the hot weather no ches tpain, no ischemic changes on ECG Echocardiogram ordered-no wall motion abnormalities, preserved EF, moderate (3) Hypertension: Blood pressures quite elevated on admission, he does admit to anxiety and whitecoat hypertension Nitropaste discontinued for headache -discontinued home triamterene HCTZ -Continue home lisinopril 40 Mg once daily -added beta-leonarda -metoprolol 25mg po bid and had some improvement in BPs--> discussed with his primary Corporate Investigator Dr. Hartman who agreed with this med change - does have a pacemaker despite having his history of SSS requiring PPM (4) Neck pain: Acute on chronic, musculoskeletal in nature Added lidocaine patch and voltaren gel and had improvement-continue these at home Tylenol as needed (5) Recurrent occipital headache: As above (6) Hyperlipidemia: Continue Zetia, simvastatin (7) CAD (coronary artery disease): History of CABG With myocardial demand ischemia as above Continue home aspirin, Zetia, simvastatin, lisinopril added metoprolol as above (8) Hx of heart bypass surgery: As above (9) Hx of cardiac pacemaker: As above (10) GERD (gastroesophageal reflux disease): Continue pantoprazole Plan Dispo-dc to home, doing very well Discharge Exam Constitutional WD/WN, vitals as above Neck no TTP FROM Respiratory normal respiratory effort, lungs clear to auscultation Cardiovascular Rate/Rhythm: regular rate and regular rhythm Heart Sounds: + murmur (2/6 MATTHEW at [facility]) Gastrointestinal (Abdomen) normal bowel sounds, soft, nontender, no hepatosplenomegaly Psychiatric A+Ox3, euthymic affect Updated Medication List Medication Instructions Recorded Confirmed Type bimatoprost 0.01 % eye drops 1 drp OPB HS 11/08/18 08/09/22 History (Lumigan) dorzolamide 22.3 mg-timolol 6.8 1 drp OPL BID 11/08/18 08/09/22 History mg/mL eye drops cholecalciferol (vitamin D3) 50 2,000 units PO QAM 11/09/18 08/09/22 History mcg (2,000 unit) capsule mecobalamin (vitamin B12) 1,000 2,500 mcg sublingual HS 11/09/18 08/09/22 History mcg disintegrating tablet,sublingual aspirin 325 mg tablet,delayed 325 mg PO QAM 08/09/19 08/09/22 History release (Ecotrin) multivitamin with iron 1 tab PO QAM 04/23/20 08/09/22 History ferrous sulfate 325 mg (65 mg 325 mg PO DAILY 08/18/20 08/09/22 History iron) tablet triamterene 37.5 1 cap PO DAILY #90 caps 01/04/22 08/09/22 Rx mg-hydrochlorothiazide 25 mg capsule lisinopril 40 mg tablet 40 mg PO DAILY #90 tabs 01/28/22 08/09/22 Rx omeprazole 20 mg capsule,delayed 20 mg PO BID 02/04/22 08/09/22 History release ezetimibe 10 mg-simvastatin 80 mg 1 tab PO QPM #90 tabs 06/20/22 08/09/22 Rx tablet (Vytorin) melatonin 5 mg tablet 5 mg PO HS 08/09/22 08/09/22 History omega-3 fatty acids 1,000 mg 1,000 mg PO DAILY 08/09/22 08/09/22 History capsule turmeric 400 mg capsule 400 mg PO DAILY 08/09/22 08/09/22 History vitamins A,C,C-dwuv-yhnjdu 2,148 1 tab PO BID 08/09/22 08/09/22 History mcg-113 mg-45 mg-17.4 mg tablet (PreserVision AREDS) diclofenac sodium 1 % topical gel 2 g EXT QID PRN neck pain #100 08/11/22 Rx (Voltaren Arthritis Pain) grams lidocaine 4 % topical patch 1 patch topical DAILY PRN pain #10 08/11/22 Rx ea metoprolol tartrate 25 mg tablet 25 mg PO BID #60 tabs 08/11/22 Rx Hospital Stay Data Consultations 08/10/22 01:35 ED Decision to Admit Stat Procedures Performed ECHO Diagnostic Imagining Performed 08/09/22 22:00 CT head/brain wo con Stat Pending Results Patient Have Any Pending Studies at Discharge: No Discharge Instructions Given to Patient (Per Discharging Provider) You were admitted for low sodium levels which is likely from dehydration on top of taking the HCTZ. This improved with IV fluids and stopping the HCTZ. Because your blood pressure was high without taking the HCTZ/triamterene, Dr. Hartman recommended adding metoprolol to your medication regimen. Your neck pain improved with using lidocaine patches and you can continue using these along with Tylenol as needed for pain. Please have Dr. Austin check your sodium levels again in 1 week. Total Time Total Time Spent Total Time Spent (In Minutes): 40 min Total Time Includes: Examination of the Patient, Discharge Planning, Medication Reconciliation and Communication With Other Providers (Cardiology) Coding Level of Care Code 23901 INP/OBS DISCH >30 MIN Diagnoses Hyponatremia E87.1 Elevated troponin R77.8 Hypertension I10 Hypertension type: unspecified Neck pain M54.2 Recurrent occipital headache R51.9 Hyperlipidemia E78.5 CAD (coronary artery disease) I25.10 Hx of heart bypass surgery Z95.1 Hx of cardiac pacemaker Z95.0 GERD (gastroesophageal reflux disease) K21.9
[2022-08-11] MEDS ORDERED: DORZOLAMIDE/TIMOLOL 22.3/6.8MG/ML 10 ML BTL OPL SCH ×2 (17:30→18:30)
--- NOTE | 2022-08-12 05:49 | Electrocardiogram Report ---
Test Reason : Blood Pressure : / mmHG Vent. Rate : 073 BPM Atrial Rate : 073 BPM P-R Int : 206 ms QRS Dur : 134 ms QT Int : 438 ms P-R-T Axes : 051 042 028 degrees QTc Int : 482 ms Normal sinus rhythm Left bundle branch block Minimal voltage criteria for LVH, may be normal variant Abnormal ECG When compared with ECG of 04-FEB-2022 07:27, Premature atrial complexes are no longer Present Left bundle branch block is now Present Confirmed by Angel Wade ([id number]) on 08/12/2022 5:48:37 AM Referred By: REFERRED SELF Confirmed By:Angel Wade
--- NOTE | 2022-08-12 06:04 | Electrocardiogram Report ---
Test Reason : Blood Pressure : / mmHG Vent. Rate : 071 BPM Atrial Rate : 071 BPM P-R Int : 216 ms QRS Dur : 134 ms QT Int : 458 ms P-R-T Axes : 017 048 021 degrees QTc Int : 497 ms Sinus rhythm with 1st degree A-V block Left bundle branch block Abnormal ECG When compared with ECG of 09-AUG-2022 22:13, No significant change was found Confirmed by Angel Wade ([id number]) on 08/12/2022 6:04:09 AM Referred By: REFERRED SELF Confirmed By:Angel Wade
--- NOTE | 2022-08-12 23:26 | Electrocardiogram Report ---
Test Reason : Blood Pressure : / mmHG Vent. Rate : 067 BPM Atrial Rate : 067 BPM P-R Int : 210 ms QRS Dur : 134 ms QT Int : 440 ms P-R-T Axes : 066 024 050 degrees QTc Int : 464 ms Poor data quality, interpretation may be adversely affected Atrial-paced rhythm with prolonged AV conduction Left bundle branch block Abnormal ECG When compared with ECG of 10-AUG-2022 05:40, Electronic atrial pacemaker has replaced Sinus rhythm Confirmed by Angel Wade ([id number]) on 08/12/2022 11:25:28 PM Referred By: REFERRED SELF Confirmed By:Angel Wade
== END 2022-08-11 14:39 | disposition home or self-care (01) | DRG 311 ==
LOC: ED 21:49 → SUATTDRO 08-10 02:52 → 2S 08-10 02:52